=== PATIENT | male | born 1950 | race Caucasian/White ===

== ENCOUNTER → 2018-01-17 | Outpatient (CLI) | payer OTHER ==
[~2018-01-17] MED LIST: ADVAIR IH; ASPIR 8181 MG PO; BREO INH; COMBIVENT RESPIM4 GM IH; COREG CR80 MG PO; CRESTOR20 MG PO; FENOFIBRATE145 MG PO; FLOMAX0.4 MG PO; GLIPIZIDE10 MG PO; INCRUSE ELLIPTA INH; JANUMET XR 1001 EACH PO; JANUVIA100 MG PO; LISINOPRIL10 MG PO; METFORMIN HCL1000 MG PO; NORCO 7.5-3251 EACH PO; PANTOPRAZOLE SO40 MG PO; PLAVIX75 MG PO; SPIRIVA18 MCG INH; SYMBICORT 16010.2 GM INH; UMECLIDINIUM INH
--- NOTE | 2018-01-17 18:44 | Diagnostic Imaging Report ---
PROCEDURE: C-SPINE AP AND LAT WITH FLEX AND EXT COMPARISON: Patients [facility], DX, SPINE CERVICAL AP\T\LAT FLEX\T\EXT, 08/18/2017, 6:52. INDICATIONS: POST C-SPIN FUSION 6 MONTH CHECK UP FINDINGS: C1 through C7 are visualized on the lateral view. Mild reversal of the cervical lordosis may be related muscle spasm or positioning. Re-demonstration of status post anterior fusion of the C4-C6 with metallic plate and transfixing screws which are intact and in adequate alignment. There has been no significant interval bony fusion. Flexion and extension views demonstrate no change in alignment. The prevertebral soft tissues are not swollen. CONCLUSION: Status post anterior fusion of C4-C6 with no significant interval bony fusion. Intact hardware with adequate alignment. No change in alignment in flexion and extension views. Nader Maurer M.D. Dictated by: Nader Maurer M.D. on 01/17/2018 at 18:44 Electronically approved by: Nader Maurer M.D. on 01/17/2018 at 18:44
== END ==
LOC: RAD 11:35
PROVIDERS: ATTEND Neurological Surgery
DX: M50.20 Other cervical disc displacement, unspecified cervical region (principal); Z98.1 Arthrodesis status
CPT/HCPCS: 72050

== ENCOUNTER 2020-03-11 12:57 | Observation (INO) | payer MEDICARE, OTHER ==
[2020-03-07 14:23] LABS: BASOPHILS % 0.6 % (0.0-1.0); EOSINOPHILS # (AUTO) 0.2 (0.0-0.4); EOSINOPHILS % 3.1 % (0.0-6.0); HEMATOCRIT 39.5 % (38.2-49.6); HEMOGLOBIN 12.4 g/dL (14.0-18.0); LYMPHOCYTES % 27.9 % (18.0-39.1); MEAN CORPUSCULAR HEMOGLOBIN 27.4 pg (28-32); MEAN CORPUSCULAR HGB CONC 31.4 g/dL (31-35); MEAN CORPUSCULAR VOLUME 87.2 fL (81-99); MONOCYTES # (AUTO) 0.5 (0.2-0.8); MONOCYTES % 6.9 % (4.4-11.3); NEUTROPHILS # (AUTO) 4.3 (2.1-6.9); NEUTROPHILS % 60.7 % (38.7-80.0); PLATELET COUNT 136 x10e3/uL (140-360); RED BLOOD COUNT 4.53 x10e6/uL (4.3-5.7); RED CELL DISTRIBUTION WIDTH 14.6 % (11.7-14.4)
[2020-03-07 14:43] LABS: ALANINE AMINOTRANSFERASE 13 IU/L (0-55); ALBUMIN 3.8 g/dL (3.5-5.0); ALBUMIN/GLOBULIN RATIO 1.2 (0.8-2.0); ALKALINE PHOSPHATASE 53 IU/L (40-150); ANION GAP 13.6 mmol/L (8-16); BLOOD UREA NITROGEN 9 mg/dL (7-26); BUN/CREATININE RATIO 11 (6-25); CALCIUM 9.2 mg/dL (8.4-10.2); CARBON DIOXIDE 31 mmol/L (22-29); CHLORIDE 103 mmol/L (98-107); CREATININE, SERUM 0.83 mg/dL (0.72-1.25); EST GLOMERULAR FILTRATION RATE > 60 ML/MIN (60-); GLUCOSE 145 mg/dL (74-118); POTASSIUM 4.6 mmol/L (3.5-5.1); SODIUM 143 mmol/L (136-145)
[2020-03-11] VITALS (12 sets, daily range): BP systolic 154–192; BP diastolic 66–88
[~2020-03-11] VITALS: Ht 182.9 cm; Wt 91.2 kg
[~2020-03-11 12:57] MED LIST changes: +AMOXICILLIN250 MG PO; +CARVEDILOL12.5 MG PO; +CILOSTAZOL100 MG PO
--- OUTSIDE RECORDS SUMMARY | 2020-03-11 13:02 | XMS REPORT | Summary of Care ---
Author Author [facility] Organization [facility] Address Unknown Phone Unavailable Encounter SUZIE Amado(CANDIE) [id number] Date(s): 10/10/18 - 10/11/18 [facility] [address] [employer] provided by [facility] [place] [address]- Encounter Diagnosis Atherosclerotic heart disease of [place] coronary artery without angina pectoris (Final) - 10/17/18 Chronic systolic (congestive) heart failure (Final) - Malignant neoplasm of colon, unspecified (Final) - Hypertensive heart disease with heart failure (Final) - Type 2 diabetes mellitus without complications (Final) - Hyperlipidemia, unspecified (Final) - Presence of aortocoronary bypass graft (Final) - Discharge Disposition: Home or Self Care Attending Physician: Nicho Saldivar MD Admitting Physician: Nicho Saldivar MD Referring Physician: Nicho Saldivar MD Vital Signs 1 2 3 Most recent to oldest [Reference Range]: 182.88 cm (10/10/18 10:16 AM) Height 97.2 DegF (10/11/18 12:00 PM) 99 DegF (10/11/18 12:00 PM) 97 DegF (10/11/18 8:00 AM) Temperature Oral [96.4-99.1 DegF] 161/67 mmHg *HI* (10/11/18 2:00 PM) 147/65 mmHg *HI* (10/11/18 1:00 PM) 133/63 mmHg (10/11/18 12:00 PM) Blood Pressure [90-140/60-90 mmHg] 35 BRMIN *HI* (10/11/18 2:00 PM) 20 BRMIN (10/11/18 1:00 PM) 27 BRMIN *HI* (10/11/18 12:00 PM) Respiratory Rate [14-20 BRMIN] 94.545 kg (10/10/18 10:16 AM) Weight 28.27 m2 (10/10/18 10:16 AM) Body Mass Index Problem List Condition Effective Dates Status Health Status Informan t COPD (chronic Active obstructive pulmonary disease)(Confirmed) DM (diabetes Active mellitus)(Confirmed) SOB (shortness of Active breath) on exertion(Confirmed) GERD Active (gastroesophageal reflux disease)(Confirmed) Hypercholesteremia(C Active onfirmed) Colon Active cancer(Confirmed) Poor circulation of Active extremity(Confirmed) PAD (peripheral Active artery disease)(Confirmed) Lumbar Active stenosis(Confirmed) Allergies, Adverse Reactions, Alerts No Known Medication Allergies Medications aspirin 81 mg, 1 tab, Route: PO, Drug form: ECTAB, Daily, Dosing Weight 94.545, kg, Star t date: 10/11/18 9:00:00 [employer], Duration: 30 day, Stop date: 11/09/18 9:00:00 [employer] Notes: Do not crush or chew.(Same As: Ecotrin) Start Date: 10/11/18 Stop Date: 10/11/18 Status: Discontinued aspirin 81 mg tablet, chewable 81 mg, Route: PO, Drug form: CHEWTAB, Daily, Dosing Weight 94.545, kg, Start lovely e: 10/11/18 9:00:00 [employer], Duration: 30 day, Stop date: 11/09/18 9:00:00 [employer] Start Date: 10/11/18 Stop Date: 10/10/18 Status: Canceled aspirin 81 mg tablet, enteric coated 81 mg = 1 tab, PO, Daily, # 90 tab, 0 Refill(s) Start Date: 10/11/18 Stop Date: 01/09/19 Status: Ordered Brilinta (ticagrelor) 90 mg, 1 tab, Route: PO, Drug form: TAB, Q12H, Dosing Weight 94.545, kg, Start d ate: 10/11/18 6:00:00 [employer], Duration: 30 day, Stop date: 11/09/18 18:00:00 [employer] Notes: (Same as: Brilinta) Start Date: 10/11/18 Stop Date: 10/11/18 Status: Discontinued calcium carbonate 500 mg (200 mg elemental calcium) oral tablet 1,000 mg, 2 tab, Route: PO, Drug form: CHEWTAB, PRN, Dosing Weight 94.545, kg, P RN Abnormal Lab Result, FOR ICU USE ONLY, Start date: 10/10/18 20:04:00 [employer], Dur ation: 30 day, Stop date: 11/09/18 20:03:00 [employer] Notes: (Same As: Emily)Calcium Carbonate 500 mg = 200 mg elemental calcium Dose = mg calcium carbonate ( mg elemental calcium) Start Date: 10/10/18 Stop Date: 10/11/18 Status: Discontinued calcium carbonate 500 mg (200 mg elemental calcium) oral tablet 500 mg, 1 tab, Route: PO, Drug form: CHEWTAB, PRN, Dosing Weight 94.545, kg, PRN Abnormal Lab Result, FOR ICU USE ONLY, Start date: 10/10/18 20:04:00 [employer], Durat ion: 30 day, Stop date: 11/09/18 20:03:00 [employer] Notes: (Same As: Emily)Calcium Carbonate 500 mg = 200 mg elemental calcium Dose = mg calcium carbonate ( mg elemental calcium) Start Date: 10/10/18 Stop Date: 10/11/18 Status: Discontinued calcium gluconate + Sodium Chloride 0.9% IV 50 mL 1 gm, 10 mL, Route: IVPB, PRN, Dosing Weight 94.545, kg, PRN Abnormal Lab Result , Start date: 10/10/18 20:04:00 [employer], Duration: 30 day, Stop date: 11/09/18 20:03 :00 [employer], FOR ICU USE ONLY Notes: WASTE: F/P - Sink; E - Municipal Trash Bin Start Date: 10/10/18 Stop Date: 10/11/18 Status: Discontinued carvedilol 25 mg oral tablet 25 mg = 1 tab, PO, BID, # 180 tab, 0 Refill(s) Start Date: 10/11/18 Stop Date: 01/09/19 Status: Ordered Coreg 25 mg, 1 tab, Route: PO, Drug form: TAB, BID, Dosing Weight 94.545, kg, Start da te: 10/11/18 0:01:00 [employer], Duration: 30 day, Stop date: 11/09/18 17:00:00 [employer] Notes: Give with food. (Same As: Coreg) Start Date: 10/11/18 Stop Date: 10/11/18 Status: Discontinued Coreg 12.5 mg, 1 tab, Route: PO, Drug form: TAB, BID, Dosing Weight 94.545, kg, Start date: 10/11/18 9:00:00 [employer], Duration: 30 day, Stop date: 11/09/18 21:00:00 [employer] Notes: Give with food. (Same As: Coreg) Start Date: 10/11/18 Stop Date: 10/10/18 Status: Canceled Crestor 20 mg, 2 tab, Route: PO, Drug form: TAB, Bedtime, Dosing Weight 94.545, kg, Star t date: 10/10/18 21:00:00 [employer], Duration: 30 day, Stop date: 11/08/18 21:00:00 CS T Notes: (Same As: Crestor) Start Date: 10/10/18 Stop Date: 10/11/18 Status: Discontinued Crestor 20 mg oral tablet 20 mg = 1 tab, PO, Bedtime, # 90 tab, 0 Refill(s) Start Date: 10/11/18 Stop Date: 01/09/19 Status: Ordered Dextrose 50% Syringe 25 gm, 50 mL, Route: IVP, Drug Form: INJ, Dosing Weight 94.545, kg, PRN, PRN Blo od Glucose Results, Start date: 10/10/18 20:05:00 [employer], Duration: 30 day, Stop da te: 11/09/18 20:04:00 [employer] Start Date: 10/10/18 Stop Date: 10/11/18 Status: Discontinued Dextrose 50% Syringe 12.5 gm, 25 mL, Route: IVP, Drug Form: INJ, Dosing Weight 94.545, kg, PRN, PRN B lood Glucose Results, Start date: 10/10/18 20:05:00 [employer], Duration: 30 day, Stop date: 11/09/18 20:04:00 [employer] Start Date: 10/10/18 Stop Date: 10/11/18 Status: Discontinued Flomax 0.4 mg, 1 cap, Route: PO, Drug form: CAP, Daily, Dosing Weight 94.545, kg, Start date: 10/11/18 9:00:00 [employer], Duration: 30 day, Stop date: 11/09/18 9:00:00 [employer] Notes: (Same As: Flomax) "Do Not Crush" Start Date: 10/11/18 Stop Date: 10/11/18 Status: Discontinued Flomax 0.4 mg oral capsule 0.4 mg = 1 cap, PO, Daily, # 90 cap, 0 Refill(s) Start Date: 10/11/18 Stop Date: 01/09/19 Status: Ordered glucagon 1 mg, Route: IM, Drug form: PDR/INJ, PRN, Dosing Weight 94.545, kg, PRN Blood Gl ucose Results, Start date: 10/10/18 20:05:00 [employer], Duration: 30 day, Stop date: 0 11/09/18 20:04:00 [employer] Start Date: 10/10/18 Stop Date: 10/11/18 Status: Discontinued Glucotrol 10 mg oral tablet 10 mg = 1 tab, PO, Daily, # 90 tab, 0 Refill(s) Start Date: 10/11/18 Stop Date: 01/09/19 Status: Ordered hydrALAZINE 10 mg, 0.5 mL, Route: IV, Drug form: INJ, ONCE, Dosing Weight 94.545, kg, Start date: 10/10/18 18:56:00 [employer], Stop date: 10/10/18 18:56:00 [employer] Notes: (Same as: Apresoline)Push over 5 minutes Start Date: 10/10/18 Stop Date: 10/10/18 Status: Discontinued Imdur 30 mg, 1 tab, Route: PO, Drug form: ERTAB, QAM, Dosing Weight 94.545, kg, Start date: 10/10/18 20:46:00 [employer], Duration: 30 day, Stop date: 11/09/18 9:00:00 [employer] Notes: (Same as:Imdur)"Do Not Crush" Take on empty stomach/ full glass of water . Do not crush Start Date: 10/10/18 Stop Date: 10/11/18 Status: Discontinued Imdur 60 mg, Route: PO, Drug form: ERTAB, QAM, Dosing Weight 94.545, kg, Start date: 12/12/17 9:00:00 [employer], Duration: 30 day, Stop date: 11/09/18 9:00:00 [employer] Start Date: 10/11/18 Stop Date: 10/11/18 Status: Canceled Imdur 30 mg, 1 tab, Route: PO, Drug form: ERTAB, ONCE, Dosing Weight 94.545, kg, Start date: 10/11/18 3:26:00 [employer], Stop date: 10/11/18 3:26:00 [employer] Notes: (Same as:Imdur)"Do Not Crush" Take on empty stomach/ full glass of water . Do not crush Start Date: 10/11/18 Stop Date: 10/11/18 Status: Discontinued Imdur 30 mg, 1 tab, Route: PO, Drug form: ERTAB, QAM, Dosing Weight 94.545, kg, Start date: 10/11/18 9:00:00 [employer], Duration: 30 day, Stop date: 11/09/18 9:00:00 [employer] Notes: (Same as:Imdur)"Do Not Crush" Take on empty stomach/ full glass of water . Do not crush Start Date: 10/11/18 Stop Date: 10/11/18 Status: Discontinued insulin lispro 5 unit, 0.05 mL, Route: SUB-Q, Drug form: SOLN, TID-Before Meals, Dosing Weight 94.545, kg, PRN Blood Glucose Results, Start date: 10/10/18 20:05:00 [employer], Durati on: 30 day, Stop date: 11/09/18 20:04:00 [employer] Notes: (Same as: Humalog ) Roll in palms of hands gently; Do not shake `vigorou sly. "Single Patient Use Only " WASTE: F/P - Black; E - Municipal Trash Bin St able for 28 days at room temperature.Expires in days from Da te Start Date: 10/10/18 Stop Date: 10/11/18 Status: Discontinued insulin lispro 2 unit, 0.02 mL, Route: SUB-Q, Drug form: SOLN, TID-Before Meals, Dosing Weight 94.545, kg, PRN Blood Glucose Results, Start date: 10/10/18 20:05:00 [employer], Durati on: 30 day, Stop date: 11/09/18 20:04:00 [employer] Notes: (Same as: Humalog ) Roll in palms of hands gently; Do not shake `vigorou sly. "Single Patient Use Only " WASTE: F/P - Black; E - Municipal Trash Bin St able for 28 days at room temperature.Expires in days from Da te Start Date: 10/10/18 Stop Date: 10/11/18 Status: Discontinued insulin lispro 1 unit, 0.01 mL, Route: SUB-Q, Drug form: SOLN, TID-Before Meals, Dosing Weight 94.545, kg, PRN Blood Glucose Results, Start date: 10/10/18 20:05:00 [employer], Durati on: 30 , Stop date: 11/09/18 20:04:00 [employer] Notes: (Same as: Humalog ) Roll in palms of hands gently; Do not shake `vigorou sly. "Single Patient Use Only " WASTE: F/P - Black; E - Municipal Trash [address] St able for 28 days at room temperature.Expires in days from Da te Start Date: 10/10/18 Stop Date: 10/11/18 Status: Discontinued insulin lispro 3 unit, 0.03 mL, Route: SUB-Q, Drug form: SOLN, TID-Before Meals, Dosing Weight 94.545, kg, PRN Blood Glucose Results, Start date: 10/10/18 20:05:00 [employer], Durati on: 30 day, Stop date: 11/09/18 20:04:00 [employer] Notes: (Same as: Humalog ) Roll in palms of hands gently; Do not shake `vigorou sly. "Single Patient Use Only " WASTE: F/P - Black; E - Municipal Trash Bin St able for 28 days at room temperature.Expires in days from Da te Start Date: 10/10/18 Stop Date: 10/11/18 Status: Discontinued insulin lispro 4 unit, 0.04 mL, Route: SUB-Q, Drug form: SOLN, TID-Before Meals, Dosing Weight 94.545, kg, PRN Blood Glucose Results, Start date: 10/10/18 20:05:00 [employer], Durati on: 30 day, Stop date: 11/09/18 20:04:00 [employer] Notes: (Same as: Humalog ) Roll in palms of hands gently; Do not shake `vigorou sly. "Single Patient Use Only " WASTE: F/P - Black; E - Municipal Trash Bin St able for 28 days at room temperature.Expires in days from Da te Start Date: 10/10/18 Stop Date: 10/11/18 Status: Discontinued isosorbide mononitrate 30 mg oral tablet, extended release 30 mg, PO, QAM, # 90 tab, 0 Refill(s) Start Date: 10/11/18 Stop Date: 01/09/19 Status: Ordered Januvia 100 mg oral tablet 100 mg = 1 tab, PO, Daily, # 90 tab, 0 Refill(s) Start Date: 10/11/18 Stop Date: 01/09/19 Status: Ordered labetalol 10 mg, Route: IV, ONCE, Dosing Weight 94.545, kg, Start date: 10/10/18 18:45:00 [employer], Stop date: 10/10/18 18:45:00 [employer] Start Date: 10/10/18 Stop Date: 10/10/18 Status: Deleted lisinopril 40 mg, Route: PO, Daily, Dosing Weight 94.545, kg, Start date: 10/10/18 20:43:00 [employer], Duration: 30 day, Stop date: 11/09/18 9:00:00 [employer] Start Date: 10/10/18 Stop Date: 10/10/18 Status: Discontinued lisinopril 10 mg, Route: PO, Drug form: TAB, Daily, Dosing Weight 94.545, kg, Start date: 1 12/12/17 9:00:00 [employer], Duration: 30 day, Stop date: 11/09/18 9:00:00 [employer] Start Date: 10/11/18 Stop Date: 10/10/18 Status: Canceled lisinopril 40 mg, 2 tab, Route: PO, Drug form: TAB, Daily, Dosing Weight 94.545, kg, Start date: 10/10/18 23:01:00 [employer], Duration: 30 day, Stop date: 11/09/18 9:00:00 [employer] Notes: (Same as: Prinivil Zestril) Start Date: 10/10/18 Stop Date: 10/11/18 Status: Discontinued lisinopril 10 mg oral tablet 10 mg = 1 tab, PO, Daily, # 30 tab, 0 Refill(s) Start Date: 10/10/18 Stop Date: 10/11/18 Status: Discontinued lisinopril 20 mg oral tablet 40 mg = 2 tab, PO, Daily, # 180 tab, 0 Refill(s) Start Date: 10/11/18 Stop Date: 01/09/19 Status: Ordered magnesium oxide 800 mg, 2 tab, Route: PO, Drug form: TAB, PRN, Dosing Weight 94.545, kg, PRN Abn ormal Lab Result, FOR ICU USE ONLY, Start date: 10/10/18 20:04:00 [employer], Duration: 30 day, Stop date: 11/09/18 20:03:00 [employer] Notes: (Same as: Mag-Ox 400)Magnesium oxide [id number] elemental magnesiumDose= ____mg magnesium oxide (___mg elemental magnesium) Start Date: 10/10/18 Stop Date: 10/11/18 Status: Discontinued magnesium sulfate 2 gm, 50 mL, Route: IVPB, Drug form: INJ, PRN, Dosing Weight 94.545, kg, PRN Abn ormal Lab Result, Start date: 10/10/18 20:04:00 [employer], Duration: 30 day, Stop date : 11/09/18 20:03:00 [employer], FOR ICU USE ONLY Notes: WASTE: F/P - Sink; E - Municipal Trash Bin Start Date: 10/10/18 Stop Date: 10/11/18 Status: Discontinued magnesium sulfate 2 gm, 50 mL, Route: IVPB, Drug form: INJ, ONCE, Dosing Weight 94.545, kg, Total dose = 2 gm, Start date: 10/10/18 12:02:00 [employer], Stop date: 10/10/18 12:02:00 [employer] Notes: WASTE: F/P - Sink; E - Municipal Trash Bin Start Date: 10/10/18 Stop Date: 10/10/18 Status: Completed metFORMIN 1000 mg oral tablet 1,000 mg, PO, BID, # 180 tab, 0 Refill(s) Start Date: 10/11/18 Stop Date: 01/09/19 Status: Ordered nitroglycerin SL Tab 0.3 mg, Route: SL, Q5Min, Dosing Weight 94.545, kg, PRN Chest Pain, Start date: 10/10/18 19:36:00 [employer], Duration: 30 day, Stop date: 11/09/18 19:35:00 [employer] Start Date: 10/10/18 Stop Date: 10/10/18 Status: Discontinued nitroglycerin SL Tab 0.4 mg, 1 tab, Route: SL, Drug form: TAB, Q5Min, Dosing Weight 94.545, kg, PRN C hest Pain, Start date: 10/10/18 18:35:00 [employer], Duration: 3 doses or times, Stop d ate: Limited # of times Notes: (Same as:Nitroquick, Nitrostat)"Do Not Crush" Sublingual tablet Start Date: 10/10/18 Stop Date: 10/11/18 Status: Discontinued NS 1,000 mL 1,000 mL, Rate: 75 ml/hr, Infuse over: 13.3 hr, Route: IV, Dosing Weight 94.545 kg, Total Volume: 1,000, Start date: 10/10/18 10:16:00 [employer], Duration: 30 day, St op date: 11/09/18 10:15:00 [employer], 2.2, m2 Start Date: 10/10/18 Stop Date: 10/11/18 Status: Discontinued nystatin topical 100,000 units/g powder 1 appl, Route: TOP, PRN, Drug form: PWDR, PRN For Fungal Prophylaxis, Start date : 10/10/18 20:02:00 [employer], Duration: 30 day, Stop date: 11/09/18 20:01:00 [employer] Notes: (Same as:Mycostatin, Nilstat) For external use only. Start Date: 10/10/18 Stop Date: 10/11/18 Status: Discontinued pantoprazole 40 mg, Route: IVP, Drug form: INJ, ONCE, Dosing Weight 94.545, kg, Start date: 1 12/11/17 20:00:00 [employer], Stop date: 10/10/18 20:00:00 [employer] Notes: For IV push reconstitute with 10 ml 0.9% sodium chloride and push over 2 minutes. (Same as: Protonix) Start Date: 10/10/18 Stop Date: 10/10/18 Status: Discontinued pantoprazole 40 mg, 1 tab, Route: PO, Drug form: ECTAB, QAM, Dosing Weight 94.545, kg, Start date: 10/11/18 9:00:00 [employer], Duration: 30 day, Stop date: 11/09/18 9:00:00 [employer] Notes: Tablet should not be chewed or crushed.(Same as: Protonix) Start Date: 10/11/18 Stop Date: 10/11/18 Status: Discontinued pantoprazole 40 mg, Route: IV, Drug form: INJ, ONCE, Dosing Weight 94.545, kg, Start date: 20:48:00 [employer], Stop date: 10/10/18 20:48:00 [employer] Notes: For IV push reconstitute with 10 ml 0.9% sodium chloride and push over 2 minutes. (Same as: Protonix) Start Date: 10/10/18 Stop Date: 10/10/18 Status: Completed pneumococcal 13-valent vaccine 0.5 mL, Route: IM, Drug Form: INJ, ONCALL, Start date: 10/10/18 12:29:05 [employer], St op date: 11/09/18 12:24:05 [employer] Notes: Shake well prior to use (Same as: Prevnar 13) Start Date: 10/10/18 Stop Date: 10/11/18 Status: Canceled potassium chloride 10 mEq, 50 mL, Route: IVPB, Drug form: INJ, PRN, Dosing Weight 94.545, kg, PRN A bnormal Lab Result, Via peripheral line, Start date: 10/10/18 20:04:00 [employer], Dura tion: 30 day, Stop date: 11/09/18 20:03:00 [employer], FOR ICU USE ONLY Notes: (Same as: KCL) Infuse over 2 hours. Start Date: 10/10/18 Stop Date: 10/11/18 Status: Discontinued potassium chloride 20 mEq, 100 mL, Route: IVPB, Drug form: INJ, PRN, Dosing Weight 94.545, kg, PRN Abnormal Lab Result, Via central line, Start date: 10/10/18 20:04:00 [employer], Durati on: 30 day, Stop date: 11/09/18 20:03:00 [employer], FOR ICU USE ONLY Notes: (Same as: KCL) Infuse no faster than 10 mEq/hr if given peripherally. Start Date: 10/10/18 Stop Date: 10/11/18 Status: Discontinued potassium chloride 20 mEq, 15 mL, Route: NJ, Drug form: LIQ, PRN, Dosing Weight 94.545, kg, PRN Abn ormal Lab Result, Start date: 10/10/18 20:04:00 [employer], Duration: 30 day, Stop date : 11/09/18 20:03:00 [employer], FOR ICU USE ONLY Notes: (Same as: Potassium Chloride) Start Date: 10/10/18 Stop Date: 10/11/18 Status: Discontinued potassium chloride 20 mEq, 1 tab, Route: PO, Drug form: ERTAB, PRN, Dosing Weight 94.545, kg, PRN A bnormal Lab Result, Start date: 10/10/18 20:04:00 [employer], Duration: 30 day, Stop da te: 11/09/18 20:03:00 [employer], FOR ICU USE ONLY Notes: (Same as: K-Dur 20)"Do Not Crush" Give with food and full glass of water For patients unable to swallow tablet, dissolve in one half glass of water. Allo w about 2 minutes for the tablets to disintegrate. Stir before giving to prepare slurry and administer.Please exclude Patients with feeding tube less than 14 Czech (Dobhoff, J-tube etc) and pediatric and patients. Start Date: 10/10/18 Stop Date: 10/11/18 Status: Discontinued potassium phosphate + Sodium Chloride 0.9% IV 250 mL 30 mmol, 10 mL, Route: IVPB, PRN, Dosing Weight 94.545, kg, PRN Abnormal Lab Res ult, Start date: 10/10/18 20:04:00 [employer], Duration: 30 day, Stop date: 11/09/18 20 :03:00 [employer], FOR ICU USE ONLY Notes: (Same as: K Phosphate.)Do not infuse phosphorous concurrently in the same line as TPN or IVF that contains calcium. For double lumen central lines, phosp horous may be infused in a separate lumen from TPN. 1 mMol phoshate has 1.47 mE q potassium Infuse over 4 hours Start Date: 10/10/18 Stop Date: 10/11/18 Status: Discontinued potassium phosphate + Sodium Chloride 0.9% IV 250 mL 15 mmol, 5 mL, Route: IVPB, PRN, Dosing Weight 94.545, kg, PRN Abnormal Lab Resu lt, Start date: 10/10/18 20:04:00 [employer], Duration: 30 day, Stop date: 11/09/18 20: 03:00 [employer], FOR ICU USE ONLY Notes: (Same as: K Phosphate.)Do not infuse phosphorous concurrently in the same line as TPN or IVF that contains calcium. For double lumen central lines, phosp horous may be infused in a separate lumen from TPN. 1 mMol phoshate has 1.47 mE q potassium Infuse over 4 hours Start Date: 10/10/18 Stop Date: 10/11/18 Status: Discontinued potassium phosphate + Sodium Chloride 0.9% IV 250 mL 45 mmol, 15 mL, Route: IVPB, PRN, Dosing Weight 94.545, kg, PRN Abnormal Lab Res ult, Start date: 10/10/18 20:04:00 [employer], Duration: 30 day, Stop date: 11/09/18 20 :03:00 [employer], FOR ICU USE ONLY Notes: (Same as: K Phosphate.)Do not infuse phosphorous concurrently in the same line as TPN or IVF that contains calcium. For double lumen central lines, phosp horous may be infused in a separate lumen from TPN. 1 mMol phoshate has 1.47 mE q potassium Infuse over 4 hours Start Date: 10/10/18 Stop Date: 10/11/18 Status: Discontinued potassium phosphate-sodium phosphate 250 mg-280 mg-160 mg oral powder for recons titution 2 pkt, Route: PO, Drug Form: PDR/REC, Dosing Weight 94.545, kg, PRN, PRN Abnorma l Lab Result, FOR ICU USE ONLY, Start date: 10/10/18 20:04:00 [employer], Duration: 30 day, Stop date: 11/09/18 20:03:00 [employer] Notes: (Same as: Phos-NaK) Each 1.5 gm pkt has 250mg phosphorous. Mix w/2.5oz w ater and stir. Start Date: 10/10/18 Stop Date: 10/11/18 Status: Discontinued Saline Flush 0.9% 10 ml, Route: IVP, Drug Form: INJ, Dosing Weight 94.545, kg, Q12H, Start date: 1 12/11/17 21:00:00 [employer], Duration: 30 day, Stop date: 11/09/18 9:00:00 [employer] Notes: (Same as: BD Posiflush) Start Date: 10/10/18 Stop Date: 10/11/18 Status: Discontinued Saline Flush 0.9% 10 ml, Route: IVP, Drug Form: INJ, Dosing Weight 94.545, kg, PRN, PRN Line Flush , Start date: 10/10/18 20:02:00 [employer], Duration: 30 day, Stop date: 11/09/18 20:01 :00 [employer] Notes: (Same as: BD Posiflush) Start Date: 10/10/18 Stop Date: 10/11/18 Status: Discontinued Sodium Chloride 0.9% (Bolus) IV 250 mL, 250 ml/hr, Infuse Over: 1 hr, Route: IV, 250, Drug form: INJ, ONCE, Dosi ng Weight 94.545 kg, Start date: 10/10/18 18:35:00 [employer], Stop date: 10/10/18 18:3 5:00 [employer] Start Date: 10/10/18 Stop Date: 10/10/18 Status: Completed Sodium Chloride 0.9% IV 750 mL 750 mL, Rate: 75 ml/hr, Infuse over: 10 hr, Route: IV, Dosing Weight 94.545 kg, Total Volume: 750, Start date: 10/10/18 18:35:00 [employer], Duration: 10 hr, Stop date : 10/11/18 4:34:00 [employer], 2.2, m2 Start Date: 10/10/18 Stop Date: 10/11/18 Status: Completed sodium phosphate + Sodium Chloride 0.9% IV 250 mL 45 mmol, 15 mL, Route: IVPB, PRN, Dosing Weight 94.545, kg, PRN Abnormal Lab Res ult, Start date: 10/10/18 20:04:00 [employer], Duration: 30 day, Stop date: 11/09/18 20 :03:00 [employer], FOR ICU USE ONLY Notes: Infuse over 4 hour. Do not infuse phosphorous concurrently in the same li ne as TPN or IVF that contains calcium. For double lumen central lines, phosphor ous may be infused in a separate lumen from TPN. Start Date: 10/10/18 Stop Date: 10/11/18 Status: Discontinued sodium phosphate + Sodium Chloride 0.9% IV 250 mL 15 mmol, 5 mL, Route: IVPB, PRN, Dosing Weight 94.545, kg, PRN Abnormal Lab Resu lt, Start date: 10/10/18 20:04:00 [employer], Duration: 30 day, Stop date: 11/09/18 20: 03:00 [employer], FOR ICU USE ONLY Notes: Infuse over 4 hour. Do not infuse phosphorous concurrently in the same li ne as TPN or IVF that contains calcium. For double lumen central lines, phosphor ous may be infused in a separate lumen from TPN. Start Date: 10/10/18 Stop Date: 10/11/18 Status: Discontinued sodium phosphate + Sodium Chloride 0.9% IV 250 mL 30 mmol, 10 mL, Route: IVPB, PRN, Dosing Weight 94.545, kg, PRN Abnormal Lab Res ult, Start date: 10/10/18 20:04:00 [employer], Duration: 30 day, Stop date: 11/09/18 20 :03:00 [employer], FOR ICU USE ONLY Notes: Infuse over 4 hour. Do not infuse phosphorous concurrently in the same li ne as TPN or IVF that contains calcium. For double lumen central lines, phosphor ous may be infused in a separate lumen from TPN. Start Date: 10/10/18 Stop Date: 10/11/18 Status: Discontinued ticagrelor 90 mg, Route: PO, Drug form: TAB, BID, Dosing Weight 94.545, kg, Start date: 10/17 9:00:00 [employer], Duration: 30 day, Stop date: 11/09/18 17:00:00 [employer] Start Date: 10/11/18 Stop Date: 10/10/18 Status: Canceled ticagrelor 90 mg oral tablet 90 mg = 1 tab, PO, Q12H, # 180 tab, 0 Refill(s) Start Date: 10/11/18 Stop Date: 01/09/19 Status: Ordered Results 1 2 3 Most recent to oldest [Reference Range]: 6.9 K/CMM (10/11/18 5:16 AM) 5.1 K/CMM (10/10/18 8:11 PM) 4.2 K/CMM (10/10/18 10:22 AM) Neutrophils # [1.5-8.1 K/CMM] 1.0 K/CMM (10/11/18 5:16 AM) 2.6 K/CMM (10/10/18 8:11 PM) 1.8 K/CMM (10/10/18 10:22 AM) Lymphocytes # [1.0-5.5 K/CMM] 0.9 K/CMM *HI* (10/11/18 5:16 AM) 0.5 K/CMM (10/10/18 8:11 PM) 0.6 K/CMM (10/10/18 10:22 AM) Monocytes # [0.0-0.8 K/CMM] 0.2 K/CMM (10/11/18 5:16 AM) 0.3 K/CMM (10/10/18 8:11 PM) 0.3 K/CMM (10/10/18 10:22 AM) Eosinophils # [0.0-0.5 K/CMM] 88 mL/min/1.73m2 1 *NA* (10/11/18 5:16 AM) 93 mL/min/1.73m2 2 *NA* (10/10/18 8:11 PM) 90 mL/min/1.73m2 3 *NA* (10/10/18 10:22 AM) eGFR O POS *Unknown* (10/10/18 10:22 AM) ABO/Rh 1.0 (10/10/18 8:11 PM) A/G Ratio [0.7-1.6] Negative (10/10/18 10:22 AM) Antibody Scrn 3.3 g/dL *LOW* (10/10/18 8:11 PM) Albumin Lvl [3.5-5.0 g/dL] 56 unit/L (10/10/18 8:11 PM) Alk Phos [39-136 unit/L] 18 unit/L (10/10/18 8:11 PM) ALT [0-65 unit/L] 12.9 mEq/L (10/11/18 5:16 AM) 11.6 mEq/L (10/10/18 8:11 PM) 10.8 mEq/L (10/10/18 10:22 AM) AGAP [10.0-20.0 mEq/L] 16 unit/L (10/10/18 8:11 PM) AST [0-37 unit/L] 13 (10/10/18 8:11 PM) B/C Ratio [6-25] 0.5 % (10/11/18 5:16 AM) 0.5 % (10/10/18 8:11 PM) 0.6 % (10/10/18 10:22 AM) Basophils [0.0-1.0 %] 12 mg/dL (10/11/18 5:16 AM) 10 mg/dL (10/10/18 8:11 PM) 10 mg/dL (10/10/18 10:22 AM) BUN [7-22 mg/dL] 8.8 mg/dL (10/11/18 5:16 AM) 8.7 mg/dL (10/10/18 8:11 PM) 8.8 mg/dL (10/10/18 10:22 AM) Calcium Lvl [8.5-10.5 mg/dL] 104 mEq/L (10/11/18 5:16 AM) 104 mEq/L (10/10/18 8:11 PM) 105 mEq/L (10/10/18 10:22 AM) Chloride Lvl [95-109 mEq/L] 27 mEq/L (10/11/18 5:16 AM) 30 mEq/L (10/10/18 8:11 PM) 30 mEq/L (10/10/18 10:22 AM) CO2 [24-32 mEq/L] 0.85 mg/dL (10/11/18 5:16 AM) 0.75 mg/dL (10/10/18 8:11 PM) 0.82 mg/dL (10/10/18 10:22 AM) Creatinine Lvl [0.50-1.40 mg/dL] 2.3 % (10/11/18 5:16 AM) 3.9 % (10/10/18 8:11 PM) 4.9 % *HI* (10/10/18 10:22 AM) Eosinophils [0.0-4.0 %] 3.4 g/dL (10/10/18 8:11 PM) Globulin [2.7-4.2 g/dL] 191 mg/dL *HI* (10/11/18 5:16 AM) 101 mg/dL *HI* (10/10/18 8:11 PM) 142 mg/dL *HI* (10/10/18 10:22 AM) Glucose Lvl [70-99 mg/dL] 35.1 % *LOW* (10/11/18 5:16 AM) 37.7 % *LOW* (10/10/18 8:11 PM) 38.6 % *LOW* (10/10/18 10:22 AM) Hct [42.0-54.0 %] 11.6 g/dL *LOW* (10/11/18 5:16 AM) 12.1 g/dL *LOW* (10/10/18 8:11 PM) 12.6 g/dL *LOW* (10/10/18 10:22 AM) Hgb [14.0-18.0 g/dL] 1.27 *HI* (10/10/18 8:11 PM) 1.06 (10/10/18 10:22 AM) INR [0.85-1.17] 3.9 mEq/L (10/11/18 5:16 AM) 3.6 mEq/L (10/10/18 8:11 PM) 3.8 mEq/L (10/10/18 10:22 AM) Potassium Lvl [3.5-5.1 mEq/L] 11.5 % *LOW* (10/11/18 5:16 AM) 30.1 % (10/10/18 8:11 PM) 26.2 % (10/10/18 10:22 AM) Lymphocytes [20.0-40.0 %] 27.6 pg (10/11/18 5:16 AM) 26.9 pg *LOW* (10/10/18 8:11 PM) 27.1 pg (10/10/18 10:22 AM) MCH [27.0-31.0 pg] 33.1 g/dL (10/11/18 5:16 AM) 32.0 g/dL (10/10/18 8:11 PM) 32.6 g/dL (10/10/18 10:22 AM) MCHC [32.0-36.0 g/dL] 83.3 fL (10/11/18:16 AM) 83.8 fL (10/10/18 8:11 PM) 83.3 fL (10/10/18 10:22 AM) MCV [80.0-94.0 fL] 1.7 mg/dL *LOW* (10/11/18:16 AM) 1.9 mg/dL (10/10/18 8:11 PM) 1.5 mg/dL *LOW* (10/10/18:22 AM) Magnesium Lvl [1.8-2.4 mg/dL] 9.4 % (10/11/18:16 AM) 6.2 % (10/10/18 8: PM) 8.3 % (10/10/18 10:22 AM) Monocytes [2.0-12.0 %] 10.5 fL *HI* (10/11/18:16 AM) 10.7 fL *HI* (10/10/18 8:11 PM) 10.4 fL (10/10/18 10:22 AM) MPV [7.4-10.4 fL] 140 mEq/L (10/11/18:16 AM) 142 mEq/L (10/10/18 8:11 PM) 142 mEq/L (10/10/18:22 AM) Sodium Lvl [135-145 mEq/L] 3.9 mg/dL (10/11/18 5:16 AM) 3.9 mg/dL (10/10/18 8:11 PM) 3.5 mg/dL (10/10/18 10:22 AM) Phosphorus [2.5-4.5 mg/dL] 150 K/CMM (10/11/18 5:16 AM) 154 K/CMM (10/10/18 8:11 PM) 169 K/CMM (12/11/18 10:22 AM) Platelet [133-450 K/CMM] 76.3 % *HI* (10/11/18 5:16 AM) 59.3 % (10/10/18 8:11 PM) 60.0 % (10/10/18 10:22 AM) Segs [45.0-75.0 %] 6.7 g/dL (10/10/18 8:11 PM) Total Protein [6.4-8.4 g/dL] 15.6 seconds *HI* (10/10/18 8:11 PM) 13.6 seconds (10/10/18 10:22 AM) PT [12.0-14.7 seconds] >200 seconds 4 *CRIT* (10/10/18: PM) 30.3 seconds (10/10/18 10:22 AM) PTT [22.9-35.8 seconds] 4.21 M/CMM *LOW* (10/11/18 5:16 AM) 4.50 M/CMM *LOW* (10/10/18 8: PM) 4.64 M/CMM *LOW* (10/10/18 10:22 AM) RBC [4.70-6.10 M/CMM] 15.9 % *HI* (10/11/18 5:16 AM) 16.5 % *HI* (10/10/18 8:11 PM) 16.0 % *HI* (10/10/18 10:22 AM) RDW [11.5-14.5 %] 0.4 mg/dL (10/10/18 8: PM) Bili Total [0.2-1.3 mg/dL] 0.16 ng/mL (10/10/18 8:11 PM) Troponin-I [0.00-0.40 ng/mL] 9.0 K/CMM (10/11/18 5:16 AM) 8.6 K/CMM (10/10/18 8:11 PM) 7.0 K/CMM (10/10/18 10:22 AM) WBC [3.7-10.4 K/CMM] 1.15 mMol/L (10/11/18 5:16 AM) 1.12 mMol/L (10/10/18 8:11 PM) Ca Ion WB [1.05-1.25 mMol/L] 1.12 mMol/L (10/11/18 5:16 AM) 1.06 mMol/L (10/10/18 8:11 PM) Ca Norm WB [1.05-1.25 mMol/L] 142 seconds *NA* (10/10/18 10:54 PM) 196 seconds *NA* (10/10/18 5:46 PM) 247 seconds *NA* (10/10/18 4:56 PM) POC Activated Clotting Time 1Result Comment: The eGFR is calculated using the CKD-EPI formula. In most young, healthy individuals the eGFR will be >90 mL/min/1.73m2. The eGFR declines with age. An eGFR of 60-89 may be normal in some populations, particularly the elderly, for whom the CKD-EPI formula has not been extensively validated. Use of the eGFR is not recommended in the following populations: Individuals with unstable creatinine concentrations, including patients and those with serious co-morbid conditions. Patients with extremes in muscle mass or diet. The data above are obtained from the National Kidney Disease Education Program ( NKDEP) which additionally recommends that when the eGFR is used in patients with extremes of body mass index for purposes of drug dosing, the eGFR should be mul tiplied by the estimated BMI. 2Result Comment: The eGFR is calculated using the CKD-EPI formula. In most young, healthy individuals the eGFR will be >90 mL/min/1.73m2. The eGFR declines with age. An eGFR of 60-89 may be normal in some populations, particularly the elderly, for whom the CKD-EPI formula has not been extensively validated. Use of the eGFR is not recommended in the following populations: Individuals with unstable creatinine concentrations, including patients and those with serious co-morbid conditions. Patients with extremes in muscle mass or diet. The data above are obtained from the National Kidney Disease Education Program ( NKDEP) which additionally recommends that when the eGFR is used in patients with extremes of body mass index for purposes of drug dosing, the eGFR should be mul tiplied by the estimated BMI. 3Result Comment: The eGFR is calculated using the CKD-EPI formula. In most young, healthy individuals the eGFR will be >90 mL/min/1.73m2. The eGFR declines with age. An eGFR of 60-89 may be normal in some populations, particularly the elderly, for whom the CKD-EPI formula has not been extensively validated. Use of the eGFR is not recommended in the following populations: Individuals with unstable creatinine concentrations, including patients and those with serious co-morbid conditions. Patients with extremes in muscle mass or diet. The data above are obtained from the National Kidney Disease Education Program ( NKDEP) which additionally recommends that when the eGFR is used in patients with extremes of body mass index for purposes of drug dosing, the eGFR should be mul tiplied by the estimated BMI. 4Result Comment: Critical Result(s) called to Laure Jin at 10/10/2018 21:06 by ELIZA. Read back OK. Immunizations Given and Recorded Vaccine Date Status Refusal Reason influenza virus vaccine, inactivated 08/24/18 G iven Procedures Procedure Date Related Diagnosis Body Site Status Endarterectomy 2007 Completed CABG x 4 - Coronary artery bypass grafts x 4 2001 Completed Cataract surgery Completed Cervical spinal fusion Completed Colonoscopy Completed Lumbar spinal fusion Completed Operation Completed Partial resection of colon Completed Shoulder joint operations Completed Vasectomy Completed Social History Social History Type Response Smoking Status Former smoker; Type: Cigare ttes; Exposure to Tobacco Smoke None; Cigarette Smoking Last 365 Days No; Reg Smoking C essation Counseling No1 entered on: 10/10/18 1Quit smoking 15 years ago Assessment and Plan Extracted from: Title: CCU History and Physical Author: Nicho Saldivar MD Date: 10/10/18 Patient is a 68 year old male with PMH CAD (s/p CABG in 2001, Positive PET CT in April -> LCX ischemia; Left Carotid Endarterectomy; ASA 81mg, Plavix 75mg), HTN (Lisinopril 20mg daily, Coreg 25mg BID), DM (Sitagliptan, Metformin, Glipizide), HLD (Crestor 20mg daily), Colon Cancer (s/p hemicolectomy Jul 2018, evaluation for chemo on-going), BPH (Tamsulosin 0.4mg) who presented to [facility] for scheduled PCI after the positive PET CT in April (LCX ischemia). Patient received DESx2 to the LCX, DESx1 to prox LAD, DESx1 RPDA. Patient's clammer is Dr. Saldivar. Patient was loaded with Ticagrelor 180mg during procedure. They also attempted PCI on [employer]ACH[employer], and there were some worries of perforation but angriography/echo had no evidence of perforation or perfusion. Per procedure recommendations, patient will stop his home Plavix, and be discharged on Ticagrelor 90mg BID and continue his Aspirin 81mg. CV #CAD s/p CABG, PCI #Elective PCI - MEGGAN to LCX, prox LAD, RPDA - Ticagrelor 180mg in procedure, startin g DAPT tomorrow - Has clammer, Dr. Saldivar to llow-up with #HTN #HFrEF (30-35%) - Home coreg 25mg BID, Lisinopril 10mg, Imdur 30mg daily - Holding coreg for HR in 60's - Starting Lisinopril 10mg #Chest pain - Burning sensation after PCI - Mild relief from nitro, none from Pant oprazole - Reciving Imdur 30mg x1 - Monitor Resp - No complaints - On room air Neuro - No complaints GI - History of colon cancer s/p hemicolect duy in July 2018 - Strict I/O Renal - No history renal disease Diet Heart Healthy-- 10/10/18 10:16:00 [employer] Code: Full Aiden Fletcher MD [facility] Internal Medicine PGY1 CCU/CIMU Daily Patient Safety Checklist Yes No Comments (free text) CAD/CHF/PCI Requirements: 1. ASA x 2. RUDOLPH Inhibitor or ARB x 3. Beta Willard x 4. Statin x 5. DAPT post PCI? x 6. Renal Protection Fluid Protocol Post- PCI? x Blood Stream Infection Prevention: 1. Central Line necessity addressed? x CAUTI Prevention: 1. Singh necessity addressed? x DVT Prevention: 1. VTE Advisor Completed on admission an d DVT ppx? Nutrition: 1. Enteral Feeding within 48hr? x Blood Glucose Control: 1. 60mg/dl < BG< 200mg/dl? x Discharge Plannin. PT/OT? 2. Cardiac Rehab? x 3. Case Management/Social Work Consult? x 4. Restraints assessed/reordered? x CCU/CIMU Diagnoses Cardiac Arrest s/p CPR Cardiogenic Shock Acute ST Elevation VA Anterior LAD Lateral LCx Inferior RCA Non ST Elevation VA Anterior LAD Lateral LCx Inferior RCA Unstable Angina Acute Systolic HF x Chronic Systolic HF Acute Diastolic HF Chronic Diastolic HF Acute on Chronic Systolic HF Acute on Chronic Diastolic HF Acute on Chronic Combined Systolic and Diastolic HF Cardiomyopathy Pericarditis Severe Aortic Stenosis Severe Mitral Regurgitation Atrial Fibrillation Paroxysmal Persistant Atrial Flutter Hyperkalemia Hypokalemia Hypernatremia Hyponatremia x Diabetes Type I Type II x Diabetic Keto Acidosis Acute Kidney Injury ATN [place] on CKD ATN CKD Stage _ Septic Shock Pneumonia Acute Respiratory Failure Chronic Respiratory Failure Acidosis Metabolic Respiratory Combined Alkalosis Metabolic Respiratory Combinded UTI Hemorrhagic Shock Acute Blood Loss Anemia Cerebral Infarction Acute Chronic Acute Encephalopathy Toxic Metabolic Hypoxic Hepatic Protein Calorie Malnutrition Mild Moderate Severe Obesity Morbid Addendum by Jeff, ATTENDING ADDENDUM Ankit TRUJILLO on I have seen and examined th e patient. Furthermore, I have reviewed the 10/13/2018 resident's/fellow's note seferino cornejo today, and I agree with the assessment and plan. I have 14:39 GAME AND [employer] personally reviewed the lab oratory results, radiology results, and tracings. Dr. Ankit Aguilar MD #[id number]
--- OUTSIDE RECORDS SUMMARY | 2020-03-11 13:02 | XMS REPORT | Summary of Care ---
Author Author [facility] Organization [facility] Address Unknown Phone Unavailable Encounter SUIZE Amado(CANDIE) [id number] Date(s): 05/08/18 - 05/08/18 [facility] [address] [place] [address]- [phone] Discharge Disposition: Home or Self Care Attending Physician: Yocasta Ndiaye V Referring Physician: Yocasta Ndiaye V Vital Signs 1 2 3 Most recent to oldest [Reference Range]: 182.88 cm (05/02/18 11:25 AM) Height 98.1 DegF (05/02/18 11:25 AM) Temperature Oral [96.4-99.1 DegF] 113/52 mmHg (05/08/18 9:00 AM) 101/48 mmHg (05/08/18 8:45 AM) 85/53 mmHg *LOW* (05/08/18 8:30 AM) Blood Pressure [90-140/60-90 mmHg] 14 BRMIN (05/08/18 9:00 AM) 17 BRMIN (05/08/18 8:45 AM) 15 BRMIN (05/08/18 8:30 AM) Respiratory Rate [14-20 BRMIN] 72 bpm (05/02/18 11:25 AM) Peripheral Pulse Rate [60-100 bpm] 99.205 kg (05/02/18 11:25 AM) Weight 29.66 m2 (05/02/18 11:25 AM) Body Mass Index Problem List Condition Effective Dates Status Health Status Informan t COPD (chronic Active obstructive pulmonary disease)(Confirmed) DM (diabetes Active mellitus)(Confirmed) SOB (shortness of Active breath) on exertion(Confirmed) GERD Active (gastroesophageal reflux disease)(Confirmed) Hypercholesteremia(C Active onfirmed) Allergies, Adverse Reactions, Alerts Substance Reaction Severity Status NKDA Active Medications aspirin 81 mg tablet, enteric coated 81 mg = 1 tab, PO, Daily, # 90 tab, 3 Refill(s) Start Date: 05/02/18 Status: Ordered Breo Ellipta 200 mcg-25 mcg/inh inhalation powder 1 puff, INHALATION, Daily, 0 Refill(s) Start Date: 05/02/18 Status: Ordered Combivent Respimat CFC free 100 mcg-20 mcg/inh inhalation aerosol 1 puff, INHALATION, QID, 0 Refill(s) Start Date: 05/02/18 Status: Ordered Coreg 25 mg oral tablet 50 mg = 2 tab, PO, Daily, 0 Refill(s) Start Date: 05/02/18 Status: Ordered Crestor 20 mg oral tablet 20 mg = 1 tab, PO, Bedtime, # 30 tab, 0 Refill(s) Start Date: 05/02/18 Stop Date: 06/01/18 Status: Ordered Flomax 0.4 mg oral capsule 0.4 mg = 1 cap, PO, Daily, 0 Refill(s) Start Date: 05/02/18 Status: Ordered Glucotrol 10 mg oral tablet 20 mg = 2 tab, PO, Daily, 0 Refill(s) Start Date: 05/02/18 Status: Ordered Incruse Ellipta 62.5 mcg inhalation powder INHALATION, Q24H, 0 Refill(s) Start Date: 05/02/18 Status: Ordered Januvia 100 mg oral tablet 100 mg = 1 tab, PO, Daily, 0 Refill(s) Start Date: 05/02/18 Status: Ordered lisinopril 10 mg oral tablet 20 mg = 2 tab, PO, Daily, 0 Refill(s) Start Date: 05/02/18 Status: Ordered metFORMIN 1000 mg oral tablet, extended release 1,000 mg = 1 tab, PO, Daily, # 30 tab, 0 Refill(s) Start Date: 05/02/18 Status: Ordered Plavix 75 mg oral tablet 75 mg = 1 tab, PO, Daily, 0 Refill(s) Start Date: 05/02/18 Status: Ordered Sodium Chloride 0.9% IV 1,000 mL 1,000 mL, Rate: 25 ml/hr, Infuse over: 40 hr, Route: IV, Dosing Weight 99.205 kg , Total Volume: 1,000, Start date: 05/08/18 7:10:00 CDT, Duration: 1 day, Stop d ate: 05/09/18 7:09:00 CDT, 2.26, m2 Start Date: 05/08/18 Stop Date: 05/08/18 Status: Discontinued Unknown Home Medication Refill(s) 0 Start Date: 05/02/18 Status: Ordered Results ELECTROLYTES Most recent to 1 oldest [Reference Range]: Sodium Lvl [135-145 142 mEq/L mEq/L] (05/02/18 11:52 AM) Potassium Lvl 4.6 mEq/L [3.5-5.1 mEq/L] (05/02/18 11:52 AM) Chloride Lvl [95-109 103 mEq/L mEq/L] (05/02/18 11:52 AM) CO2 [24-32 mEq/L] 29 mEq/L (05/02/18 11:52 AM) AGAP [10.0-20.0 14.6 mEq/L mEq/L] (05/02/18 11:52 AM) CHEM PANEL Most recent to 1 oldest [Reference Range]: Creatinine Lvl 1.39 mg/dL [0.50-1.40 mg/dL] (05/02/18 11:52 AM) eGFR 39 mL/min/1.73m2 1 *NA* (05/02/18 11:52 AM) BUN [7-22 mg/dL] 20 mg/dL (05/02/18 11:52 AM) Glucose Lvl [70-99 268 mg/dL mg/dL] *HI* (05/02/18 11:52 AM) Calcium Lvl 8.8 mg/dL [8.5-10.5 mg/dL] (05/02/18 11:52 AM) 1Result Comment: The eGFR is calculated using [...] be mul tiplied by the estimated BMI. Immunizations No data available for this section Procedures Procedure Date Related Diagnosis Body Site Status Endarterectomy 2008 Completed CABG x 4 - Coronary artery bypass grafts x 4 2001 Completed Operation Completed Shoulder joint operations Completed Social History Social History Type Response Smoking Status Former smoker; Type: Cigare ttes; Exposure to Tobacco Smoke None; Cigarette Smoking Last 365 Days No; Reg Smoking C essation Counseling No entered on: 05/08/18 Assessment and Plan No data available for this section
--- OUTSIDE RECORDS SUMMARY | 2020-03-11 13:02 | XMS REPORT | Summary of Care ---
Author Author [facility] Organization [facility] Address Unknown Phone Unavailable Encounter SUZIE Amado(CANDIE) [id number] Date(s): 07/11/19 - 07/11/19 [facility] [address] [place] [address]- Discharge Disposition: Home or Self Care Attending Physician: Yocasta Ndiaye V Referring Physician: Yocasta Ndiaye V Vital Signs 1 2 3 Most recent to oldest [Reference Range]: 182.88 cm (07/03/19 7:47 AM) Height 97.9 DegF (07/03/19 8:01 AM) Temperature Oral [96.4-99.1 DegF] 147/80 mmHg *HI* (07/11/19 9:10 AM) 137/65 mmHg (07/11/19 8:57 AM) 105/46 mmHg (07/11/19 8:42 AM) Blood Pressure [90-140/60-90 mmHg] 15 BRMIN (07/11/19 9:10 AM) 14 BRMIN (07/11/19 8:57 AM) 16 BRMIN (07/11/19 8:42 AM) Respiratory Rate [14-20 BRMIN] 68 bpm (07/03/19 8:01 AM) Peripheral Pulse Rate [60-100 bpm] 90.909 kg (07/03/19 7:47 AM) Weight 27.18 m2 (07/03/19 7:47 AM) Body Mass Index Problem List Condition Effective Dates Status Health Status Informan t COPD (chronic Active obstructive pulmonary disease)(Confirmed) DM (diabetes Active mellitus)(Confirmed) SOB (shortness of Active breath) on exertion(Confirmed) GERD Active (gastroesophageal reflux disease)(Confirmed) Hypercholesteremia(C Active onfirmed) Colon Active cancer(Confirmed) PAD (peripheral Active artery disease)(Confirmed) Poor circulation of Active extremity(Confirmed) Lumbar Active stenosis(Confirmed) Allergies, Adverse Reactions, Alerts No Known Medication Allergies Medications Advair Diskus 100 mcg-50 mcg inhalation powder INHALATION, BID, 0 Refill(s) Start Date: 07/03/19 Status: Ordered carvedilol 12.5 mg oral tablet 12.5 mg = 1 tab, PO, BID, 0 Refill(s) Start Date: 07/03/19 Status: Ordered cilostazol 100 mg oral tablet 100 mg = 1 tab, PO, BID, 0 Refill(s) Start Date: 07/03/19 Status: Ordered Januvia 100 mg oral tablet 100 mg = 1 tab, PO, Daily, 0 Refill(s) Start Date: 07/03/19 Status: Ordered lisinopril 10 mg oral tablet 10 mg = 1 tab, PO, BID, 0 Refill(s) Start Date: 07/03/19 Status: Ordered pantoprazole 40 mg oral enteric coated tablet 40 mg = 1 tab, PO, Daily, 0 Refill(s) Start Date: 07/03/19 Status: Ordered Plavix 75 mg oral tablet 75 mg = 1 tab, PO, Daily, 0 Refill(s) Start Date: 07/05/19 Status: Ordered Sodium Chloride 0.9% IV 1000 mL 1,000 mL, Rate: 75 ml/hr, Infuse over: 13.3 hr, Route: IV, Dosing Weight 90.909 kg, Total Volume: 1,000, Start date: 07/11/19 7:03:00 CDT, Duration: 30 day, Sto p date: 08/10/19 7:02:00 CDT, 2.16, m2 Start Date: 07/11/19 Stop Date: 07/11/19 Status: Discontinued Results Most recent to 1 oldest [Reference Range]: eGFR 86 mL/min/1.73m2 1 *NA* (07/03/19 8:31 AM) AGAP [10.0-20.0 11.6 mEq/L mEq/L] (07/03/19 8:31 AM) BUN [7-22 mg/dL] 12 mg/dL (07/03/19 8:31 AM) Calcium Lvl 9.3 mg/dL [8.5-10.5 mg/dL] (07/03/19 8:31 AM) Chloride Lvl [95-109 107 mEq/L mEq/L] (07/03/19 8:31 AM) CO2 [24-32 mEq/L] 30 mEq/L (07/03/19 8:31 AM) Creatinine Lvl 0.89 mg/dL [0.50-1.40 mg/dL] (07/03/19 8:31 AM) Glucose Lvl [70-99 235 mg/dL mg/dL] *HI* (07/03/19 8:31 AM) Hct [42.0-54.0 %] 37.9 % *LOW* (07/03/19 8:31 AM) Hgb [14.0-18.0 g/dL] 12.6 g/dL *LOW* (07/03/19 8:31 AM) Potassium Lvl 4.6 mEq/L [3.5-5.1 mEq/L] (07/03/19 8:31 AM) Sodium Lvl [135-145 144 mEq/L mEq/L] (07/03/19 8:31 AM) 1Result Comment: The eGFR is calculated [...] mul tiplied by the estimated BMI. Immunizations Given and Recorded Vaccine Date Status Refusal Reason influenza virus vaccine, inactivated 08/24/18 G iven Procedures Procedure Date Related Diagnosis Body Site Status Vascular access incision1 10/31/17 Completed Endarterectomy 2007 Completed CABG x 4 - Coronary artery bypass grafts x 4 2001 Completed Cataract surgery Completed Cervical spinal fusion Completed Colonoscopy Completed Lumbar spinal fusion Completed Operation Completed Partial resection of colon Completed Shoulder joint operations Completed Vasectomy Completed 1portocath placement Social History Social History Type Response Alcohol Past Employment/School Status: Retired. Substance Abuse Use: None. Smoking Status Former smoker; Type: Cigare ttes; Previous treatment: None; Ready to change: No; Concerns about tobacco use in house hold: No; Exposure to Tobacco Smoke None; Cigarette Smoking Last 365 Days N o; Reg Smoking Cessation Counseling No1 entered on: 07/11/19 1Quit smoking 15 years ago Assessment and Plan No data available for this section
--- OUTSIDE RECORDS SUMMARY | 2020-03-11 13:02 | XMS REPORT | Summary of Care ---
Author Author [facility] Organization [facility] Address Unknown Phone Unavailable Encounter SUZIE Amado(FIN) [id number] Date(s): 07/05/18 - 07/05/18 [facility] [address] [place] [address]- [phone] Attending Physician: Ish Cortes MD Referring Physician: Ish Cortes MD Vital Signs No data available for this section Problem List Condition Effective Dates Status Health Status Informan t COPD (chronic Active obstructive pulmonary disease)(Confirmed) DM (diabetes Active mellitus)(Confirmed) SOB (shortness of Active breath) on exertion(Confirmed) GERD Active (gastroesophageal reflux disease)(Confirmed) Hypercholesteremia(C Active onfirmed) Colon Active cancer(Confirmed) Poor circulation of Active extremity(Confirmed) PAD (peripheral Active artery disease)(Confirmed) Lumbar Active stenosis(Confirmed) Allergies, Adverse Reactions, Alerts Substance Reaction Severity Status NKDA Active Medications No data available for this section Results No data available for this section Immunizations Given and Recorded Vaccine Date Status [...]
--- OUTSIDE RECORDS SUMMARY | 2020-03-11 13:02 | XMS REPORT | Summary of Care ---
Author Author [facility] Organization [facility] Address Unknown Phone Unavailable Encounter SUZIE Amado(CANDIE) [id number] Date(s): 08/24/19 - 08/24/19 [facility] [address] [place] [address]- Discharge Disposition: Home or Self Care Attending Physician: Mikel Comer MD Referring Physician: Mikel Comer MD Vital Signs No data available for [...] Reactions, Alerts No Known Medication Allergies Medications No data available for this section Results Most recent to 1 oldest [Reference Range]: eGFR 95 mL/min/1.73m2 1 *NA* (08/24/19 7:53 AM) POC Creatinine 0.7 mg/dL [0.5-1.4 mg/dL] (08/24/19 7:53 AM) 1Result Comment: The eGFR is calculated [...] Status Vascular access incision1 10/31/17 Completed Endarterectomy 2008 Completed CABG x 4 - [...]
--- OUTSIDE RECORDS SUMMARY | 2020-03-11 13:02 | XMS REPORT | Summary of Care ---
Author Author [facility] Organization [facility] Address Unknown Phone Unavailable Encounter SUZIE Amado(CANDIE) [id number] Date(s): 09/17/19 - 09/17/19 [facility] [address] [place] [address]- Discharge Disposition: Home or Self Care Attending Physician: Yocasta Ndiaye V Referring Physician: Yocasta Ndiaye V Vital Signs 1 2 3 Most recent to oldest [Reference Range]: 182.88 cm (09/12/19 7:55 AM) Height 97.8 DegF (09/12/19 8:05 AM) Temperature Oral [96.4-99.1 DegF] 99/49 mmHg (09/17/19 10:00 AM) 110/47 mmHg (09/17/19 9:45 AM) 116/55 mmHg (09/17/19 9:30 AM) Blood Pressure [90-140/60-90 mmHg] 16 BRMIN (09/17/19 10:00 AM) 16 BRMIN (09/17/19 9:45 AM) 16 BRMIN (09/17/19 9:30 AM) Respiratory Rate [14-20 BRMIN] 64 bpm (09/12/19 8:05 AM) Peripheral Pulse Rate [60-100 bpm] 93.182 kg (09/12/19 7:55 AM) Weight 27.86 m2 (09/12/19 7:55 AM) Body Mass Index Problem List Condition Effective Dates Status Health Status Informan t COPD (chronic Active obstructive pulmonary disease)(Confirmed) DM (diabetes Active mellitus)(Confirmed) SOB (shortness of Active breath) on exertion(Confirmed) GERD Active (gastroesophageal reflux disease)(Confirmed) Hypercholesteremia(C Active onfirmed) Colon Resolved cancer(Confirmed) PAD (peripheral Active artery disease)(Confirmed) Poor circulation of Active extremity(Confirmed) Lumbar Active stenosis(Confirmed) Allergies, Adverse Reactions, Alerts No Known Medication Allergies Medications ceFAZolin (ANES) Route: IV, Drug form: INJ, ONCE, Stop date: 09/17/19 9:27:00 TRAFFIC COORDINATOR Start Date: 09/17/19 Stop Date: 09/17/19 Status: Completed fentaNYL (ANES) Route: IV, Drug form: INJ, ONCE, Stop date: 09/17/19 9:22:00 TRAFFIC COORDINATOR Start Date: 09/17/19 Stop Date: 09/17/19 Status: Completed Lactated Ringers Injection IV (ANES) 1000 mL Route: IV, Total Volume: 1,000, Start date: 09/17/19 8:41:00 TRAFFIC COORDINATOR, Stop date: 9:41:00 TRAFFIC COORDINATOR Start Date: 09/17/19 Stop Date: 09/17/19 Status: Completed Lactated Ringers Injection IV 1000 mL 1,000 mL, Rate: 75 ml/hr, Infuse over: 13.3 hr, Route: IV, Dosing Weight 93.182 kg, Total Volume: 1,000, Start date: 09/17/19 8:03:00 TRAFFIC COORDINATOR, Duration: 30 day, Sto p date: 10/17/19 8:02:00 TRAFFIC COORDINATOR, 2.19, m2 Start Date: 09/17/19 Stop Date: 09/17/19 Status: Discontinued lidocaine (ANES) Route: IV, Drug form: INJ, ONCE, Stop date: 09/17/19 9:42:00 TRAFFIC COORDINATOR Start Date: 09/17/19 Stop Date: 09/17/19 Status: Completed midazolam (ANES) Route: IV, Drug form: SOLN, ONCE, Stop date: 09/17/19 9:22:00 TRAFFIC COORDINATOR Start Date: 09/17/19 Stop Date: 09/17/19 Status: Completed ondansetron (ANES) Route: IV, Drug form: INJ, ONCE, Stop date: 09/17/19 9:27:00 TRAFFIC COORDINATOR Start Date: 09/17/19 Stop Date: 09/17/19 Status: Completed propofol (ANES) 10 mg Route: IV, Drug form: INJ, Start date: 09/17/19 8:52:00 TRAFFIC COORDINATOR, Stop date: 09/17/19 9:52:00 TRAFFIC COORDINATOR Start Date: 09/17/19 Stop Date: 09/17/19 Status: Completed Tylenol with Codeine #3 oral tablet 1 - 2 tab, PO, Q6H, PRN Pain, X 2 day, # 10 tab, 0 Refill(s) Start Date: 09/17/19 Stop Date: 09/19/19 Status: Completed Results Most recent to 1 oldest [Reference Range]: eGFR 91 mL/min/1.73m2 1 *NA* (09/12/19 8:43 AM) AGAP [10.0-20.0 10.7 mEq/L mEq/L] (09/12/19 8:43 AM) BUN [7-22 mg/dL] 14 mg/dL (09/12/19 8:43 AM) Calcium Lvl 8.9 mg/dL [8.5-10.5 mg/dL] (09/12/19 8:43 AM) Chloride Lvl [95-109 108 mEq/L mEq/L] (09/12/19 8:43 AM) CO2 [24-32 mEq/L] 29 mEq/L (09/12/19 8:43 AM) Creatinine Lvl 0.78 mg/dL [0.50-1.40 mg/dL] (09/12/19 8:43 AM) Glucose Lvl [70-99 128 mg/dL mg/dL] *HI* (09/12/19 8:43 AM) Hct [42.0-54.0 %] 40.9 % *LOW* (09/12/19 8:43 AM) Hgb [14.0-18.0 g/dL] 13.3 g/dL *LOW* (09/12/19 8:43 AM) Hgb A1C [<=5.6 %] 7.0 % *HI* (09/12/19 8:43 AM) Potassium Lvl 4.7 mEq/L [3.5-5.1 mEq/L] (09/12/19 8:43 AM) Sodium Lvl [135-145 143 mEq/L mEq/L] (09/12/19 8:43 AM) 1Result Comment: The eGFR is calculated [...] Social History Social History Type Response Alcohol Never Employment/School Status: Retired. Substance Abuse Use: None. Smoking Status Former smoker; Exposure to Tobacco Smoke None; Cigarette Smoking Last 365 Days No; Reg Smoking Cessation Counseli ng No entered on: 09/12/19 Assessment and Plan No data available for this section
--- OUTSIDE RECORDS SUMMARY | 2020-03-11 13:02 | XMS REPORT | Summary of Care ---
Author Author [facility] Organization [facility] Address Unknown Phone Unavailable Encounter SUZIE Amado(CANDIE) [id number] Date(s): 06/08/19 - 06/08/19 [facility] [address] [place] [address]- Discharge Disposition: Home or Self Care Attending Physician: Sarah Villela DO Referring Physician: Sarah Villela DO Vital Signs Most recent to 1 oldest [Reference Range]: Height 182.88 cm (06/08/19 7:58 AM) Weight 92.273 kg (06/08/19 7:58 AM) Body Mass Index 27.59 m2 (06/08/19 7:58 AM) Problem List Condition Effective Dates Status Health [...] Social History Social History Type Response Alcohol Past, Type Beer. Previous treatment: None. Alcohol use interferes with work or home: No. Drinks more than int ended: No. Others hurt by drinking: No. Ready to change: No. Household al cohol concerns: No.1 Smoking Status Former smoker; Type: Cigare ttes; Previous treatment: None; Ready to change: No; Concerns about tobacco use in house hold: No; Exposure to Tobacco Smoke None; Cigarette Smoking Last 365 Days N o; Reg Smoking Cessation Counseling No2 entered on: 06/08/19 1quit drinking in 2001 2Quit smoking 15 years ago Assessment and Plan No data available for this section
--- OUTSIDE RECORDS SUMMARY | 2020-03-11 13:02 | XMS REPORT | Summary of Care ---
Author Author [facility] Organization [facility] Address Unknown Phone Unavailable Encounter SUZIE Amado(CANDIE) [id number] Date(s): 12/13/19 - 12/13/19 [facility] [address] [place] [address]- Discharge Disposition: Home or Self Care Attending Physician: Ish Cortes MD Referring Physician: Ish Cortes MD Vital Signs 1 2 3 Most recent to oldest [Reference Range]: 182.88 cm (12/06/19 10:29 AM) Height 97.7 DegF (12/06/19 10:30 AM) Temperature Oral [96.4-99.1 DegF] 113/48 mmHg (12/13/19 3:45 PM) 111/44 mmHg (12/13/19 3:15 PM) 104/49 mmHg (12/13/19 2:45 PM) Blood Pressure [90-140/60-90 mmHg] 18 BRMIN (12/13/19 3:45 PM) 15 BRMIN (12/13/19 1:30 PM) 16 BRMIN (12/13/19 1:15 PM) Respiratory Rate [14-20 BRMIN] 56 bpm *LOW* (12/06/19 10:30 AM) Peripheral Pulse Rate [60-100 bpm] 93.21 kg (12/06/19 10:29 AM) Weight 27.87 m2 (12/06/19 10:29 AM) Body Mass Index Problem List Condition [...] Reactions, Alerts No Known Medication Allergies Medications Ancef 2 gm, Route: IVPB, PRE OP, Dosing Weight 93.21, kg, Start date: 12/06/19 11:00:0 0 ORTHOTIC/PROSTHETIC PRACTITIONER, Duration: 1 day, Stop date: 12/07/19 10:59:00 ORTHOTIC/PROSTHETIC PRACTITIONER, ABX Indication: Surgic al Prophylaxis Start Date: 12/06/19 Stop Date: 12/13/19 Status: Discontinued ceFAZolin (ANES) Route: IV, Drug form: INJ, ONCE, Stop date: 12/13/19 11:50:00 ORTHOTIC/PROSTHETIC PRACTITIONER Start Date: 12/13/19 Stop Date: 12/13/19 Status: Completed clopidogrel 75 mg oral tablet 75 mg = 1 tab, PO, Daily, 0 Refill(s) Start Date: 12/06/19 Status: Ordered fentaNYL (ANES) Route: IV, Drug form: INJ, ONCE, Stop date: 12/13/19 11:55:00 ORTHOTIC/PROSTHETIC PRACTITIONER Start Date: 12/13/19 Stop Date: 12/13/19 Status: Completed fentaNYL (ANES) Route: IV, Drug form: INJ, ONCE, Stop date: 12/13/19 12:05:00 ORTHOTIC/PROSTHETIC PRACTITIONER Start Date: 12/13/19 Stop Date: 12/13/19 Status: Completed heparin (ANES) Route: IV, Drug form: INJ, ONCE, Stop date: 12/13/19 12:10:00 ORTHOTIC/PROSTHETIC PRACTITIONER Start Date: 12/13/19 Stop Date: 12/13/19 Status: Completed Lactated Ringers Injection IV (ANES) 1000 mL Route: IV, Total Volume: 1,000, Start date: 12/13/19 10:55:00 ORTHOTIC/PROSTHETIC PRACTITIONER, Stop date: 11:55:00 ORTHOTIC/PROSTHETIC PRACTITIONER Start Date: 12/13/19 Stop Date: 12/13/19 Status: Completed lidocaine (ANES) Route: IV, Drug form: INJ, ONCE, Stop date: 12/13/19 12:15:00 ORTHOTIC/PROSTHETIC PRACTITIONER Start Date: 12/13/19 Stop Date: 12/13/19 Status: Completed midazolam (ANES) Route: IV, Drug form: SOLN, ONCE, Stop date: 12/13/19 11:45:00 ORTHOTIC/PROSTHETIC PRACTITIONER Start Date: 12/13/19 Stop Date: 12/13/19 Status: Completed midazolam (ANES) Route: IV, Drug form: SOLN, ONCE, Stop date: 12/13/19 12:15:00 ORTHOTIC/PROSTHETIC PRACTITIONER Start Date: 12/13/19 Stop Date: 12/13/19 Status: Completed ondansetron (ANES) Route: IV, Drug form: INJ, ONCE, Stop date: 12/13/19 12:00:00 ORTHOTIC/PROSTHETIC PRACTITIONER Start Date: 12/13/19 Stop Date: 12/13/19 Status: Completed propofol (ANES) Route: IV, Drug form: INJ, ONCE, Stop date: 12/13/19 12:05:00 ORTHOTIC/PROSTHETIC PRACTITIONER Start Date: 12/13/19 Stop Date: 12/13/19 Status: Completed propofol (ANES) Route: IV, Drug form: INJ, ONCE, Stop date: 12/13/19 12:46:00 ORTHOTIC/PROSTHETIC PRACTITIONER Start Date: 12/13/19 Stop Date: 12/13/19 Status: Completed protamine (ANES) Route: IV, Drug form: INJ, ONCE, Stop date: 12/13/19 12:56:00 ORTHOTIC/PROSTHETIC PRACTITIONER Start Date: 12/13/19 Stop Date: 12/13/19 Status: Completed vancomycin 1 gm, Route: IV, PRE OP, Dosing Weight 93.21, kg, Start date: 12/06/19 11:00:00 ORTHOTIC/PROSTHETIC PRACTITIONER, Duration: 1 day, Stop date: 12/07/19 10:59:00 ORTHOTIC/PROSTHETIC PRACTITIONER, ABX Indication: Surgical Prophylaxis Start Date: 12/06/19 Stop Date: 12/13/19 Status: Discontinued vancomycin (ANES) 1000 mg Route: IV, Drug form: INJ, Start date: 12/13/19 11:15:00 ORTHOTIC/PROSTHETIC PRACTITIONER, Stop date: 0 12:15:00 ORTHOTIC/PROSTHETIC PRACTITIONER Start Date: 12/13/19 Stop Date: 12/13/19 Status: Completed Results Most recent to 1 oldest [Reference Range]: Neutrophils # 4.8 K/CMM [1.5-8.1 K/CMM] (12/06/19 10:40 AM) Lymphocytes # 1.7 K/CMM [1.0-5.5 K/CMM] (12/06/19 10:40 AM) Monocytes # [0.0-0.8 0.7 K/CMM K/CMM] (12/06/19 10:40 AM) Eosinophils # 0.1 K/CMM [0.0-0.5 K/CMM] (12/06/19 10:40 AM) eGFR 88 mL/min/1.73m2 1 *NA* (12/06/19:40 AM) ABO/Rh O POS *Unknown* (12/06/1940 AM) Antibody Scrn Negative (12/06/1940 AM) AGAP [10.0-20.0 8.7 mEq/L mEq/L] *LOW* (12/06/19:40 AM) Basophils [0.0-1.0 0.4 % %] (12/06/19:40 AM) BUN [7-22 mg/dL] 11 mg/dL (12/06/19:40 AM) Calcium Lvl 8.9 mg/dL [8.5-10.5 mg/dL] (12/06/19:40 AM) Chloride Lvl [95-109 106 mEq/L mEq/L] (12/06/19 10:40 AM) CO2 [24-32 mEq/L] 32 mEq/L (12/06/19 10:40 AM) Creatinine Lvl 0.83 mg/dL [0.50-1.40 mg/dL] (12/06/19:40 AM) Eosinophils [0.0-4.0 1.9 % %] (12/06/19:40 AM) Glucose Lvl [70-99 85 mg/dL mg/dL] (12/06/19:40 AM) Hct [42.0-54.0 %] 40.9 % *LOW* (12/06/19:40 AM) Hgb [14.0-18.0 g/dL] 13.3 g/dL *LOW* (12/06/19:40 AM) Hgb A1C [<=5.6 %] 7.4 % *HI* (12/06/19 10:40 AM) INR [0.85-1.17] 1.02 (12/06/19 10:40 AM) Potassium Lvl 4.7 mEq/L [3.5-5.1 mEq/L] (12/06/19 10:40 AM) Lymphocytes 22.8 % [20.0-40.0 %] (12/06/19 10:40 AM) MCH [27.0-31.0 pg] 28.3 pg (12/06/19:40 AM) MCHC [32.0-36.0 32.6 g/dL g/dL] (12/06/19:40 AM) MCV [80.0-94.0 fL] 86.9 fL (12/06/19:40 AM) Monocytes [2.0-12.0 9.4 % %] (12/06/19:40 AM) MPV [7.4-10.4 fL] 9.8 fL (12/06/19:40 AM) Sodium Lvl [135-145 142 mEq/L mEq/L] (12/06/19:40 AM) Platelet [133-450 133 K/CMM K/CMM] (12/06/19:40 AM) Segs [45.0-75.0 %] 65.5 % (12/06/19:40 AM) PT [12.0-14.7 13.4 seconds seconds] (12/06/19:40 AM) PTT [22.9-35.8 31.4 seconds seconds] (12/06/19:40 AM) RBC [4.70-6.10 4.70 M/CMM M/CMM] (12/06/19 10:40 AM) RDW [11.5-14.5 %] 15.7 % *HI* (12/06/19:40 AM) WBC [3.7-10.4 K/CMM] 7.4 K/CMM (12/06/19 10:40 AM) 1Result Comment: The eGFR is calculated [...] Response Alcohol Past, Type Beer. Previous treatment: None.1 Employment/School Status: Retired. Substance Abuse Use: None. Smoking Status Former smoker; Type: Cigare ttes; Previous treatment: None; Ready to change: No; Concerns about tobacco use in house hold: No; Exposure to Tobacco Smoke None; Cigarette Smoking Last 365 Days N o; Reg Smoking Cessation Counseling No2 entered on: 12/06/19 1quit drinking in 2001 2Quit smoking 15 years ago Assessment and Plan No data available for this section
--- OUTSIDE RECORDS SUMMARY | 2020-03-11 13:02 | XMS REPORT | Continuity of Care Document ---
Author Author Bertha [employer], [employer] Organization [employer] Address Unknown Phone Unavailable Care Team Providers Care Ware Carrier Name Role Phone [facility] [place] [employer] Unavailable Un available Problems Problem Status Onset Date Classification Date Reported Comments Source UNK Active 0 03/03/2020 [facility] H93.90-UNSPECIFIED DISORDER OF EAR, UNSP Active 08/21/2019 [facility] LYMPH NODE Active 06/04/2019 [facility] Atherosclerotic heart disease of [place] coronary artery without angina pectoris 10/18/2018 04/30/2019 [facility] 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 W/DADA Active 10/06/2018 [facility] Malignant neoplasm of descending colon 10/04/2018 04/16/2019 [facility] Polyp of colon 09/02/2018 03/13/2019 [facility] COLON POLYP Active 05/31/2018 [facility] Chronic obstructive lung disease (disorder) Active Problem 12/15/2019 [facility] Diabetes mellitus (disorder) A ctive Problem [facility] Dyspnea on exertion (finding) Active Problem [facility] Gastroesophageal reflux disease (disorder) Active Problem 12/15/2019 [facility] Hypercholesterolemia (disorder) Active Problem [facility] Malignant tumor of colon (disorder) Resolved Problem [facility] Peripheral vascular disease (disorder) Active Problem [facility] Spinal stenosis of lumbar region (disorder) Active Problem 12/15/2019 [facility] Spinal stenosis, lumbosacral region 04/16/2019 [facility] Personal history of nicotine dependence 04/16/2019 [facility] 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) use of antithromboti cs/antiplatelets 04/16/2019 [facility] Acquired absence of other specified part s of digestive tract 04/16/2019 [facility] care home (current) use of aspirin 04/16/2019 [facility] Chronic obstructive pulmonary disease, unspecified 04/16/2019 [facility] Type 2 diabetes mellitus with diabetic p eripheral angiopathy without gangrene 04/16/2019 [facility] Gastro-esophageal reflux disease without esophagitis 04/16/2019 [facility] Other intervertebral disc displacement, lumbar region 04/16/2019 [facility] Type 2 diabetes mellitus without complications 04/30/2019 [facility] Pure hypercholesterolemia, unspecified 03/13/2019 [facility] Hyperlipidemia, unspecified 04/30/2019 [facility] Obstructive sleep apnea (adult) (pediatric) 03/13/2019 [facility] Essential (primary) hypertension 03/13/2019 [facility] Encounter for immunization 03/13/2019 [facility] Presence of aortocoronary bypass graft 04/30/2019 [facility] Chronic systolic (congestive) heart failure 04/30/2019 [facility] Malignant neoplasm of colon, unspecified 04/30/2019 [facility] Hypertensive heart disease with heart failure 04/30/2019 [facility] Medications Medication Details Route Status Patient Instructions Ordering Provider Order Date Source protamine (ANES) Route: IV, Dr ug form: INJ, ONCE, Stop date: 12/13/19 12:56:00 OCCUPATIONAL THERAPY AIDES TEACHER Inactive 12/13/2019 [facility] propofol (ANES) Route: IV, Chad g form: INJ, ONCE, Stop date: 12/13/19 12:46:00 OCCUPATIONAL THERAPY AIDES TEACHER Inactive 12/13/2019 [facility] lidocaine (ANES) Route: IV, Dr ug form: INJ, ONCE, Stop date: 12/13/19 12:15:00 OCCUPATIONAL THERAPY AIDES TEACHER Inactive 12/13/2019 [facility] midazolam (ANES) Route: IV, Dr ug form: SOLN, ONCE, Stop date: 12/13/19 12:15:00 OCCUPATIONAL THERAPY AIDES TEACHER Inactive 12/13/2019 [facility] heparin (ANES) Route: IV, Drug form: INJ, ONCE, Stop date: 12/13/19 12:10:00 OCCUPATIONAL THERAPY AIDES TEACHER Inactive 12/13/2019 [facility] propofol (ANES) Route: IV, Chad g form: INJ, ONCE, Stop date: 12/13/19 12:05:00 OCCUPATIONAL THERAPY AIDES TEACHER Inactive 12/13/2019 [facility] fentaNYL (ANES) Route: IV, Chad g form: INJ, ONCE, Stop date: 12/13/19 12:05:00 OCCUPATIONAL THERAPY AIDES TEACHER Inactive 12/13/2019 [facility] ondansetron (ANES) Route: IV, Drug form: INJ, ONCE, Stop date: 12/13/19 12:00:00 OCCUPATIONAL THERAPY AIDES TEACHER Inactive 12/13/2019 [facility] fentaNYL (ANES) Route: IV, Chad g form: INJ, ONCE, Stop date: 12/13/19 11:55:00 OCCUPATIONAL THERAPY AIDES TEACHER Inactive 12/13/2019 [facility] ceFAZolin (ANES) Route: IV, Dr ug form: INJ, ONCE, Stop date: 12/13/19 11:50:00 OCCUPATIONAL THERAPY AIDES TEACHER Inactive 12/13/2019 [facility] midazolam (ANES) Route: IV, Dr ug form: SOLN, ONCE, Stop date: 12/13/19 11:45:00 OCCUPATIONAL THERAPY AIDES TEACHER Inactive 12/13/2019 [facility] vancomycin (ANES) 1000 mg Rout e: IV, Drug form: INJ, Start date: 12/13/19 11:15:00 OCCUPATIONAL THERAPY AIDES TEACHER, Stop date: 12/13/19 12:15:00 OCCUPATIONAL THERAPY AIDES TEACHER Inactive 12/13/2019 [facility] Lactated Ringers Injection IV (ANES) 1000 mL Route: IV, Total Volume: 1,000, Start date: 12/13/19 10:55:00 OCCUPATIONAL THERAPY AIDES TEACHER, Stop date: 12/13/19 11:55:00 OCCUPATIONAL THERAPY AIDES TEACHER Inactive 12/13/2019 [facility] clopidogrel 75 mg oral tablet 75 mg = 1 tab, PO, Daily, 0 Refill(s) Active 12/06/2019 [facility] Ancef 2 gm, Route: IVPB, PRE O P, Dosing Weight 93.21, kg, Start date: 12/06/19 11:00:00 OCCUPATIONAL THERAPY AIDES TEACHER, Duration: 1 day, Stop date: 12/07/19 10:59:00 OCCUPATIONAL THERAPY AIDES TEACHER, ABX Indication: Surgical Prophylaxis No Longer Active 12/06/2019 [facility] Vancomycin 1 gm, Route: IV, AR E OP, Dosing Weight 93.21, kg, Start date: 12/06/19 11:00:00 OCCUPATIONAL THERAPY AIDES TEACHER, Duration: 1 day, Stop date: 12/07/19 10:59:00 OCCUPATIONAL THERAPY AIDES TEACHER, ABX Indication: Surgical Prophylaxis No Longer Active 12/06/2019 [facility] lidocaine (ANES) Route: IV, Dr ug form: INJ, ONCE, Stop date: 09/17/19 9:42:00 OCCUPATIONAL THERAPY AIDES TEACHER Inactive 09/17/2019 [facility] ceFAZolin (ANES) Route: IV, Dr ug form: INJ, ONCE, Stop date: 09/17/19 9:27:00 OCCUPATIONAL THERAPY AIDES TEACHER Inactive 09/17/2019 [facility] ondansetron (ANES) Route: IV, Drug form: INJ, ONCE, Stop date: 09/17/19 9:27:00 OCCUPATIONAL THERAPY AIDES TEACHER Inactive 09/17/2019 [facility] midazolam (ANES) Route: IV, Dr ug form: SOLN, ONCE, Stop date: 09/17/19 9:22:00 OCCUPATIONAL THERAPY AIDES TEACHER Inactive 09/17/2019 [facility] fentaNYL (ANES) Route: IV, Chad g form: INJ, ONCE, Stop date: 09/17/19 9:22:00 OCCUPATIONAL THERAPY AIDES TEACHER Inactive 09/17/2019 [facility] Acetaminophen 300 MG / Codeine Phosphate 30 MG Oral Tablet [Tylenol with Codeine #3] 1 - 2 tab, PO, Q6H, PRN Pain, X 2 day, # 10 tab, 0 Refill(s) No Longer Active 09/17/2019 [facility] propofol (ANES) 10 mg Route: I V, Drug form: INJ, Start date: 09/17/19 8:52:00 OCCUPATIONAL THERAPY AIDES TEACHER, Stop date: 09/17/19 9:52:00 OCCUPATIONAL THERAPY AIDES TEACHER Inactive 09/17/2019 [facility] Lactated Ringers Injection IV (ANES) 1000 mL Route: IV, Total Volume: 1,000, Start date: 09/17/19 8:41:00 OCCUPATIONAL THERAPY AIDES TEACHER, Stop date: 09/17/19 9:41:00 OCCUPATIONAL THERAPY AIDES TEACHER Inactive 09/17/2019 [facility] Calcium Chloride 0.0014 MEQ/ML / Potassi um Chloride 0.004 MEQ/ML / Sodium Chloride 0.103 MEQ/ML / Sodium Lactate 0.028 MEQ/ML Injectable Solution 1,000 mL, Rate: 75 ml/hr, Infuse over: 1 3.3 hr, Route: IV, Dosing Weight 93.182 kg, Total Volume: 1,000, Start date: 09/17/19 8:03:00 OCCUPATIONAL THERAPY AIDES TEACHER, Duration: 30 day, Stop date: 10/17/19 8:02:00 OCCUPATIONAL THERAPY AIDES TEACHER, 2.19, m2 Inactive 09/17/2019 [facility] Sodium Chloride 0.9% IV 1000 mL 1,000 mL, Rate: 75 ml/hr, Infuse over: 13.3 hr, Route: IV, Dosing Weight 90.909 kg, Total Volume: 1,000, Start date: 07/11/19 7:03:00 CDT, Duration: 30 day, Stop date: 08/10/19 7:02:00 CDT, 2.16, m2 Inactive 07/11/2019 [facility] clopidogrel 75 MG Oral Tablet [Plavix] 75 mg = 1 tab, PO, Daily, 0 Refill(s) Active 07/05/2019 [facility] carvedilol 12.5 mg oral tablet 12.5 mg = 1 tab, PO, BID, 0 Refill(s) Active 07/03/2019 [facility] cilostazol 100 mg oral tablet 100 mg = 1 tab, PO, BID, 0 Refill(s) Active 07/03/2019 [facility] Advair Diskus 100 mcg-50 mcg inhalation powder INHALATION, BID, 0 Refill(s) Active 07/03/2019 [facility] lisinopril 10 mg oral tablet 1 0 mg = 1 tab, PO, BID, 0 Refill(s) Active 07/03/2019 [facility] sitagliptin 100 MG Oral Tablet [Januvia] 100 mg = 1 tab, PO, Daily, 0 Refill(s) Active 07/03/2019 [facility] pantoprazole 40 mg oral enteric coated tablet 40 mg = 1 tab, PO, Daily, 0 Refill(s) Active 07/03/2019 [facility] ticagrelor 90 mg oral tablet 9 0 mg = 1 tab, PO, Q12H, # 180 tab, 0 Refill(s) Active 10/11/2018 [facility] carvedilol 25 mg oral tablet 2 5 mg = 1 tab, PO, BID, # 180 tab, 0 Refill(s) Active 10/11/2018 [facility] Aspirin 81 MG Enteric Coated Tablet 81 mg = 1 tab, PO, Daily, # 90 tab, 0 Refill(s) Active 10/11/2018 [facility] isosorbide mononitrate 30 mg oral tablet , extended release 30 mg, PO, QAM, # 90 tab, 0 Refill(s) Active 10/11/2018 [facility] lisinopril 20 mg oral tablet 4 0 mg = 2 tab, PO, Daily, # 180 tab, 0 Refill(s) Active 10/11/2018 [facility] Glipizide 10 MG Oral Tablet [Glucotrol] 10 mg = 1 tab, PO, Daily, # 90 tab, 0 Refill(s) Active 10/11/2018 [facility] Tamsulosin hydrochloride 0.4 MG Oral Capsule [Flomax] 0.4 mg = 1 cap, PO, Daily, # 90 cap, 0 Refill(s) Active 10/11/2018 [facility] Rosuvastatin calcium 20 MG Oral Tablet [Crestor] 20 mg = 1 tab, PO, Bedtime, # 90 tab, 0 Refill(s) Active 10/11/2018 [facility] sitagliptin 100 MG Oral Tablet [Januvia] 100 mg = 1 tab, PO, Daily, # 90 tab, 0 Refill(s) Active 10/11/2018 [facility] Metformin hydrochloride 1000 MG Oral Tablet 1,000 mg, PO, BID, # 180 tab, 0 Refill(s) Active 10/11/2018 [facility] Flomax Notes: (Same As: Flomax ) "Do Not Crush" Inactive 10/11/2018 [facility] pantoprazole Notes: Tablet essie uld not be chewed or crushed. (Same as: Protonix) Inactive 10/11/2018 [facility] Aspirin Notes: Do not crush or chew. (Same As: Ecotrin) Inactive 10/11/2018 [facility] Ticagrelor 90 mg, Route: PO, D rug form: TAB, BID, Dosing Weight 94.545, kg, Start date: 10/11/18 9:00:00 OCCUPATIONAL THERAPY AIDES TEACHER, Duration: 30 day, Stop date: 11/09/18 17:00:00 OCCUPATIONAL THERAPY AIDES TEACHER No Longer Active 10/11/2018 [facility] Aspirin 81 MG Chewable Tablet 81 mg, Route: PO, Drug form: CHEWTAB, Daily, Dosing Weight 94.545, kg, Start date: 10/11/18 9:00:00 OCCUPATIONAL THERAPY AIDES TEACHER, Duration: 30 day, Stop date: 11/09/18 9:00:00 OCCUPATIONAL THERAPY AIDES TEACHER No Longer Active 10/11/2018 [facility] Imdur 60 mg, Route: PO, Drug f orm: ERTAB, QAM, Dosing Weight 94.545, kg, Start date: 10/11/18 9:00:00 OCCUPATIONAL THERAPY AIDES TEACHER, Duration: 30 day, Stop date: 11/09/18 9:00:00 OCCUPATIONAL THERAPY AIDES TEACHER Inactive 10/11/[address] [facility] nt Lisinopril 10 mg, Route: PO, D rug form: TAB, Daily, Dosing Weight 94.545, kg, Start date: 10/11/18 9:00:00 OCCUPATIONAL THERAPY AIDES TEACHER, Duration: 30 day, Stop date: 11/09/18 9:00:00 OCCUPATIONAL THERAPY AIDES TEACHER No Longer Active 10/11/[address] [facility] nt Coreg Notes: Give with food. ( Same As: Coreg) No Longer Active 10/11/2018 [facility] Brilinta Notes: (Same as: Bril inta) Inactive 10/11/2018 [facility] Imdur Notes: (Same as:Imdur) " Do Not Crush" Take on empty stomach/ full glass of water. Do not crush Inactive 10/11/2018 [facility] Coreg Notes: Give with food. ( Same As: Coreg) Inactive 10/11/2018 [facility] Lisinopril Notes: (Same as: Pr inivil, Zestril) No Longer Active 10/11/2018 [facility] Crestor Notes: (Same As: Crest or) No Longer Active 10/11/2018 [facility] Saline Flush 0.9% Notes: (Same as: BD Posiflush) No Longer Active 10/11/2018 [facility] pantoprazole Notes: For IV pus h reconstitute with 10 ml 0.9% sodium chloride and push over 2 minutes. (Same as: Protonix) Inactive 10/11/2018 [facility] Imdur Notes: (Same as:Imdur) " Do Not Crush" Take on empty stomach/ full glass of water. Do not crush No Longer Active 10/11/2018 [facility] Lisinopril 40 mg, Route: PO, D aily, Dosing Weight 94.545, kg, Start date: 10/10/18 20:43:00 OCCUPATIONAL THERAPY AIDES TEACHER, Duration: 30 day, Stop date: 11/09/18 9:00:00 OCCUPATIONAL THERAPY AIDES TEACHER Inactive 10/11/2018 [facility] lisinopril 10 mg oral tablet 1 0 mg = 1 tab, PO, Daily, # 30 tab, 0 Refill(s) No Longer Active 10/11/[address] [facility] nt Dextrose 50% Syringe 25 gm, 50 mL, Route: IVP, Drug Form: INJ, Dosing Weight 94.545, kg, PRN, PRN Blood Glucose Results, Start date: 10/10/18 20:05:00 OCCUPATIONAL THERAPY AIDES TEACHER, Duration: 30 day, Stop date: 11/09/18 20:04:00 OCCUPATIONAL THERAPY AIDES TEACHER No Longer Active 10/11/2018 [facility] Glucagon 1 mg, Route: IM, Drug form: PDR/INJ, PRN, Dosing Weight 94.545, kg, PRN Blood Glucose Results, Start date: 10/10/18 20:05:00 OCCUPATIONAL THERAPY AIDES TEACHER, Duration: 30 day, Stop date: 11/09/18 20:04:00 OCCUPATIONAL THERAPY AIDES TEACHER No Longer Active 10/11/2018 [facility] Insulin Lispro Notes: (Same as : Humalog ) Roll in palms of hands gently; Do not shake `vigorously. "Single Patient Use Only " WASTE: F/P - Black; E - Municipal Trash Bin Stable for 28 days at room temp erature. Expires in days from Date No Longer Active 10/11/2018 [facility] potassium phosphate Notes: (Sa me as: K Phosphate.) Do not infuse phosphorous concurrently in the same line as TPN or IVF that contains calcium. For double lumen central lines, phosphorous may be infused in a separate lumen from TPN. 1 mMol phoshate has 1.47 mEq potassium Infuse over 4 hours No Longer Active 10/11/2018 [facility] sodium phosphate Notes: Infuse over 4 hour. Do not infuse phosphorous concurrently in the same line as TPN or IVF that contains calcium. For double lumen central lines, phosphorous may be infused in a separate lumen from TPN. No Longer Active 10/11/[address] [facility] nter Magnesium Oxide Notes: (Same a s: Mag-Ox 400) Magnesium oxide [id number] elemental magnesium Dose=____mg magnesium oxide (___mg elemental magnesium) No Longer Active 10/11/[address] [facility] nter Magnesium Sulfate Notes: WASTE : F/P - Sink; E - Municipal Trash Bin No Longer Active 10/11/[address] [facility] nter Calcium Gluconate Notes: WASTE : F/P - Sink; E - Municipal Trash Bin No Longer Active 10/11/[address] [facility] nter potassium phosphate-sodium phosphate 250 mg-280 mg-160 mg oral powder for reconstitution Notes: (Same as: Phos-NaK) Each 1.5 gm pkt has 250mg phosphorous. Mix w/2.5oz water and stir. No Longer Active 10/11/2018 [facility] Calcium Carbonate 500 MG Chewable Tablet Notes: (Same As: Tums) Calcium Carbonate 500 mg = 200 mg elemental calcium Dose = mg calcium carbonate ( mg elemental calcium) No Longer Active 10/11/2018 [facility] Potassium Chloride Notes: (Kian e as: KCL) Infuse over 2 hours. No Longer Active 10/11/2018 [facility] Saline Flush 0.9% Notes: (Same as: BD Posiflush) No Longer Active 10/11/2018 [facility] Nystatin 100 UNT/MG Topical Powder Notes: (Same as:Mycostatin, Nilstat) For external use only. No Longer Active 10/11/2018 [facility] pantoprazole Notes: For IV pus h reconstitute with 10 ml 0.9% sodium chloride and push over 2 minutes. (Same as: Protonix) Inactive 10/11/2018 [facility] Nitroglycerin 0.3 mg, Route: S L, Q5Min, Dosing Weight 94.545, kg, PRN Chest Pain, Start date: 10/10/18 19:36:00 OCCUPATIONAL THERAPY AIDES TEACHER, Duration: 30 day, Stop date: 11/09/18 19:35:00 OCCUPATIONAL THERAPY AIDES TEACHER Inactive 10/11/[address] [facility] nter Hydralazine Notes: (Same as: A presoline) Push over 5 minutes Inactive 10/11/2018 [facility] Labetalol 10 mg, Route: IV, ON CE, Dosing Weight 94.545, kg, Start date: 10/10/18 18:45:00 OCCUPATIONAL THERAPY AIDES TEACHER, Stop date: 10/10/18 18:45:00 OCCUPATIONAL THERAPY AIDES TEACHER Inactive 10/11/2018 [facility] Nitroglycerin Notes: (Same as: Nitroquick, Nitrostat) "Do Not Crush" Sublingual tablet No Longer Active 10/11/[address] [facility] nter Sodium Chloride 0.9% (Bolus) IV 250 mL, 250 ml/hr, Infuse Over: 1 hr, Route: IV, 250, Drug form: INJ, ONCE, Dosing Weight 94.545 kg, Start date: 10/10/18 18:35:00 OCCUPATIONAL THERAPY AIDES TEACHER, Stop date: 10/10/18 18:35:00 OCCUPATIONAL THERAPY AIDES TEACHER Inactive 10/11/2018 [facility] Sodium Chloride 0.9% IV 750 mL 750 mL, Rate: 75 ml/hr, Infuse over: 10 hr, Route: IV, Dosing Weight 94.545 kg, Total Volume: 750, Start date: 10/10/18 18:35:00 OCCUPATIONAL THERAPY AIDES TEACHER, Duration: 10 hr, Stop date: 10/11/18 4:34:00 OCCUPATIONAL THERAPY AIDES TEACHER, 2.2, m2 No Longer Active 10/11/2018 [facility] Streptococcus pneumoniae serotype 1 caps ular antigen diphtheria [id number] protein conjugate vaccine / Streptococcus pneumoniae serotype 14 capsular antigen diphtheria [id number] protein conjugate vaccine / Streptococcus pneumoniae serotype 18C capsular antigen d Notes: Shake well prior to use (Same as: Prevnar 13) No Longe r Active 10/10/[address] [facility] nter Magnesium Sulfate Notes: WASTE : F/P - Sink; E - Municipal Trash Bin Inactive 10/10/2018 [facility] NS 1,000 mL 1,000 mL, Rate: 75 ml/hr, Infuse over: 13.3 hr, Route: IV, Dosing Weight 94.545 kg, Total Volume: 1,000, Start date: 10/10/18 10:16:00 OCCUPATIONAL THERAPY AIDES TEACHER, Duration: 30 day, Stop date: 11/09/18 10:15:00 OCCUPATIONAL THERAPY AIDES TEACHER, 2.2, m2 No Longer Active 10/10/2018 [facility] Oxycodone Hydrochloride 5 MG Oral Tablet 5 mg, Route: PO, Drug form: TAB, ONCE, Dosing Weight 98.778, kg, PRN Pain Score 4-6, Start date: 09/27/18 17:26:00 OCCUPATIONAL THERAPY AIDES TEACHER Inactive 09/27/2018 [facility] Acetaminophen 300 MG / Codeine Phosphate 30 MG Oral Tablet [Tylenol with Codeine #3] 1 - 2 tab, PO, Q4H, PRN Pain, X 3 day, # 20 tab, 0 Refill(s) No Longer Active 09/27/2018 [facility] ePHEDrine (ANES) Route: IV, Dr ug form: INJ, ONCE, Stop date: 09/27/18 15:58:00 OCCUPATIONAL THERAPY AIDES TEACHER Inactive 09/27/2018 [facility] ondansetron (ANES) Route: IV, Drug form: INJ, ONCE, Stop date: 09/27/18 15:38:00 OCCUPATIONAL THERAPY AIDES TEACHER Inactive 09/27/2018 [facility] ceFAZolin (ANES) Route: IV, Dr ug form: INJ, ONCE, Stop date: 09/27/18 15:38:00 OCCUPATIONAL THERAPY AIDES TEACHER Inactive 09/27/2018 [facility] lidocaine (ANES) Route: IV, Dr ug form: INJ, ONCE, Stop date: 09/27/18 15:38:00 OCCUPATIONAL THERAPY AIDES TEACHER Inactive 09/27/2018 [facility] propofol (ANES) Route: IV, Chad g form: INJ, ONCE, Stop date: 09/27/18 15:38:00 OCCUPATIONAL THERAPY AIDES TEACHER Inactive 09/27/2018 [facility] fentaNYL (ANES) Route: IV, Chad g form: INJ, ONCE, Stop date: 09/27/18 15:33:00 OCCUPATIONAL THERAPY AIDES TEACHER Inactive 09/27/2018 [facility] midazolam (ANES) Route: IV, Dr ug form: SOLN, ONCE, Stop date: 09/27/18 15:33:00 OCCUPATIONAL THERAPY AIDES TEACHER Inactive 09/27/2018 [facility] Bupivacaine Hydrochloride 5 MG/ML / Epin ephrine 0.005 MG/ML Injectable Solution Notes: (bupivacaine-epi 0.5%-1:200,000 3 0 ml VL) Not for use in continuous infusion. (Same As: Marcaine w/Epi) No Longer Active 09/27/2018 [facility] Lactated Ringers Injection IV (ANES) 1000 mL Route: IV, Total Volume: 1,000, Start date: 09/27/18 14:49:00 OCCUPATIONAL THERAPY AIDES TEACHER, Stop date: 09/27/18 15:49:00 OCCUPATIONAL THERAPY AIDES TEACHER Inactive 09/27/2018 [facility] Lactated Ringers IV 1000 mL 1, 000 mL, Rate: 40 ml/hr, Infuse over: 25 hr, Route: IV, Dosing Weight 98.778 kg, Total Volume: 1,000, Start date: 09/27/18 13:36:00 OCCUPATIONAL THERAPY AIDES TEACHER, Duration: 30 day, Stop date: 10/27/18 13:35:00 OCCUPATIONAL THERAPY AIDES TEACHER, 2.25, m2 Inactiv e 09/27/2018 [facility] cilostazol 100 mg oral tablet 100 mg = 1 tab, PO, Daily, 0 Refill(s) No Longer Active 09/25/2018 [facility] lisinopril 40 mg oral tablet 4 0 mg = 1 tab, PO, BID, # 90 tab, 1 Refill(s) No Longer Active 09/25/2018 [facility] clopidogrel 75 mg oral tablet 75 mg = 1 tab, PO, Daily, # 90 tab, 3 Refill(s) No Longe r Active 09/25/2018 [facility] Aspirin Enteric Coated 81 mg oral delaye d release tablet 81 mg = 1 tab, PO, Daily, 0 Refill(s) No Longer Active 09/25/2018 [facility] Lisinopril Notes: (Same as: Pr inivil, Zestril) Inactive 08/24/2018 [facility] Tylenol Notes: Do not exceed 4 gm/day. (Same as: Tylenol) Inactive 08/24/2018 [facility] Incruse Ellipta Incruse Ellipt a, 1 inhalation, Drug form: MISC, Route: INHALATION, Daily, 08/23/18 13:30:00 CDT, Duration: 30 day, Stop date: 09/22/18 9:00:00 OCCUPATIONAL THERAPY AIDES TEACHER No Longer Active 08/23/[address] [facility] nter Breo Ellipta 100 mcg-25 mcg inhalation powder Breo Ellipta 100 mcg-25 mcg inhalation powder, 1 puff, Drug form: MISC, Route: INHALATION, Daily, 08/23/18 13:30:00 CDT, Duration: 30 day, Stop date: 09/22/18 9:00:00 OCCUPATIONAL THERAPY AIDES TEACHER No Longer Active 08/23/2018 [facility] Coreg 25 mg, Route: PO, Drug f orm: TAB, BID, Dosing Weight 99.545, kg, Start date: 08/23/18 9:00:00 CDT, Duration: 30 day, Stop date: 09/21/18 17:00:00 OCCUPATIONAL THERAPY AIDES TEACHER Inactive 08/23/[address] [facility] nter Amlodipine Notes: (Same as: No rvasc) No Longer Active 08/23/2018 [facility] Aspirin Notes: Do not crush or chew. (Same As: Ecotrin) No Longer Active 08/23/2018 [facility] Dextrose 50% Syringe 12.5 gm, 25 mL, Route: IVP, Drug Form: INJ, Dosing Weight 99.3, kg, PRN, PRN Blood Glucose Results, Start date: 08/23/18 8:40:00 CDT, Duration: 30 day, Stop date: 09/22/18 7:39:00 [employer]ER No Longer Active 08/23/2018 [facility] Glucagon 1 mg, Route: IM, Drug form: PDR/INJ, PRN, Dosing Weight 99.3, kg, PRN Blood Glucose Results, Start date: 08/23/18 8:40:00 CDT, Duration: 30 day, Stop date: 09/22/18 7:39:00 OCCUPATIONAL THERAPY AIDES TEACHER No Longer Active 08/23/2018 [facility] Insulin Lispro Notes: (Same as : Humalog ) Roll in palms of hands gently; Do not shake `vigorously. "Single Patient Use Only " WASTE: F/P - Black; E - Municipal Trash Bin Stable for 28 days at room temp erature. Expires in days from Date No Longer Active 08/23/2018 [facility] Coreg Notes: Give with food. ( Same As: Coreg) No Longer Active 08/22/2018 [facility] Celebrex Notes: NSAID. Please check indication. Not for seizure. (Same As: CeleBREX) N o Longer Active 08/22/[address] [facility] nter Entereg Notes: Same as: Entere g Maximum of 15 doses Alert Restricted medication Alvimopan (Entergen) order form must be completed prior to dispensing. No Longer Active 08/22/[address] [facility] nter Flomax Notes: (Same As: Flomax ) "Do Not Crush" No Longer Active 08/22/2018 [facility] pantoprazole Notes: Tablet essie uld not be chewed or crushed. (Same as: Protonix) N o Longer Active 08/22/[address] [facility] nter Lisinopril Notes: (Same as: Pr inivil, Zestril) No Longer Active 08/22/2018 [facility] Isosorbide Notes: (Same as:Imd ur) "Do Not Crush" Take on empty stomach/ full glass of water. Do not crush No Longer Active 08/22/2018 [facility] Breo Ellipta 100 mcg-25 mcg inhalation powder 1 puff, Route: INHALATION, Drug Form: PWDR, Dosing Weight 99.545, kg, Daily, Start date: 08/22/18 9:00:00 CDT, Duration: 30 day, Stop date: 09/20/18 9:00:00 [employer]CCUPATIONAL [employer]ER[employer]IDES TE[employer]ER No Longer Active 08/22/2018 [facility] Enoxaparin Notes: (Same as: Lo venox) No Longer Active 08/22/2018 [facility] Methocarbamol Notes: (Same as: Robaxin) No Longer Active 08/22/2018 [facility] Ofirmev Notes: Infuse over 15 minutes Do not exceed 4gm/day of acetaminophen MEDICATION WASTE Product Size: 1000 mg Product Wasted: ___ mg No Longer Active 08/22/[address] [facility] nter gabapentin 300 MG Oral Capsule Notes: (Same as: Neurontin) No Longer Active 08/22/2018 [facility] Famotidine Notes: (Same as: Pe pcid) No Longer Active 08/22/2018 [facility] Crestor Notes: (Same As: Crest or) No Longer Active 08/22/2018 [facility] metoprolol (ANES) Route: IV, D rug form: INJ, ONCE, Stop date: 08/21/18 19:36:00 CDT Inactive 08/22/[address] [facility] nter neostigmine (ANES) Route: IV, Drug form: INJ, ONCE, Stop date: 08/21/18 19:36:00 CDT Inactive 08/22/[address] [facility] nter labetalol (ANES) Route: IV, Dr ug form: INJ, ONCE, Stop date: 08/21/18 19:36:00 CDT Inactive 08/22/[address] [facility] nter ondansetron (ANES) Route: IV, Drug form: INJ, ONCE, Stop date: 08/21/18 19:36:00 CDT Inactive 08/22/[address] [facility] nter glycopyrrolate (ANES) Route: I V, Drug form: INJ, ONCE, Stop date: 08/21/18 19:36:00 CDT Inactive 08/22/[address] 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 Inactive 08/22/2018 [facility] Dilaudid Notes: Same as Dilaud id No Longer Active 08/22/2018 [facility] Ondansetron Notes: (Same as: Ifeanyi canas) MEDICATION WASTE Product Size: 4 mg Product Wasted: ___ mg No Longer Active 08/22/2018 [facility] Diphenhydramine Notes: (Same a s: Benadryl) No Longer Active 08/22/2018 [facility] Calcium Chloride 0.0014 MEQ/ML / Potassi um Chloride 0.004 MEQ/ML / Sodium Chloride 0.103 MEQ/ML / Sodium Lactate 0.028 MEQ/ML Injectable Solution 1,000 mL, Rate: 50 ml/hr, Infuse over: 2 0 hr, Route: IV, Dosing Weight 99.545 kg, Total Volume: 1,000, Start date: 08/21/18 19:20:00 CDT, Duration: 30 day, Stop date: 09/20/18 19:19:00 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 nter ceFAZolin (ANES) Route: IV, Dr ug form: INJ, ONCE, Stop date: 08/21/18 18:11:00 CDT Inactive 08/21/[address] [facility] nter Insulin regular 60 units) W ASTE: F/P - Black; E - Municipal Trash Bin Stable for 28 days at room temperature Expires in days from Date N o Longer Active 08/21/[address] [facility] nter rocuronium (ANES) Route: IV, D rug form: INJ, ONCE, Stop date: 08/21/18 17:46:00 CDT Inactive 08/21/[address] [facility] nter norepinephrine (ANES) 10 microgram Route: IV, Drug form: INJ, Start date: 08/21/18 17:34:00 CDT, Stop date: 08/21/18 18:34:00 CDT Inactive 08/21/2018 [facility] acetaminophen (ANES) Route: IV , Drug form: INJ, ONCE, Stop date: 08/21/18 17:11:00 CDT Inactive 08/21/[address] [facility] nter propofol (ANES) Route: IV, Chad g form: INJ, ONCE, Stop date: 08/21/18 17:01:00 CDT Inactive 08/21/[address] [facility] nter indocyanine green (ANES) Route : IV, Drug form: PDR/INJ, ONCE, Stop date: 08/21/18 17:01:00 CDT Inactive 08/21/[address] [facility] nter norepinephrine (ANES) Route: I V, Drug form: INJ, ONCE, Stop date: 08/21/18 16:10:00 CDT Inactive 08/21/[address] [facility] nter glycopyrrolate (ANES) Route: I V, Drug form: INJ, ONCE, Stop date: 08/21/18 16:00:00 CDT Inactive 08/21/[address] [facility] nter Insulin regular (ANES) Route: IV, Drug form: INJ, ONCE, Stop date: 08/21/18 15:45:00 CDT Inactive 08/21/[address] [facility] nter metroNIDAZOLE (ANES) Route: IV , Drug form: INJ, ONCE, Stop date: 08/21/18 15:35:00 CDT Inactive 08/21/[address] [facility] nter EPINEPHrine (ANES) Route: IV, Drug form: INJ, ONCE, Stop date: 08/21/18 15:31:00 CDT Inactive 08/21/[address] [facility] nter ceFAZolin (ANES) Route: IV, Dr ug form: INJ, ONCE, Stop date: 08/21/18 15:30:00 CDT Inactive 08/21/[address] [facility] nter metoprolol (ANES) Route: IV, D rug form: INJ, ONCE, Stop date: 08/21/18 15:30:00 CDT Inactive 08/21/[address] [facility] nter norepinephrine (ANES) Route: I V, Drug form: INJ, ONCE, Stop date: 08/21/18 15:30:00 CDT Inactive 08/21/[address] [facility] nter dexmedetomidine (ANES) 200 microgram Route: IV, Drug form: INJ, Start date: 08/21/18 15:27:00 CDT, Stop date: 08/21/18 16:27:00 CDT Inactive 08/21/2018 [facility] propofol (ANES) Route: IV, Chad g form: INJ, ONCE, Stop date: 08/21/18 15:25:00 CDT Inactive 08/21/[address] [facility] nter rocuronium (ANES) Route: IV, D rug form: INJ, ONCE, Stop date: 08/21/18 15:25:00 CDT Inactive 08/21/[address] [facility] nter fentaNYL (ANES) Route: IV, Chad g form: INJ, ONCE, Stop date: 08/21/18 15:25:00 CDT Inactive 08/21/[address] [facility] nter lidocaine (ANES) Route: IV, Dr ug form: INJ, ONCE, Stop date: 08/21/18 15:25:00 CDT Inactive 08/21/[address] [facility] nter Ondansetron Notes: (Same as: Ifeanyi canas) MEDICATION WASTE Product Size: 4 mg Product Wasted: ___ mg No Longer Active 08/21/2018 [facility] Flumazenil Notes: (Same as: Ro mazicon) No Longer Active 08/21/2018 [facility] Hydromorphone Notes: Same as D ilaudid No Longer Active 08/21/2018 [facility] Naloxone Notes: Same as Narcan No Longer Active 08/21/2018 [facility] Labetalol 10 mg, 2 mL, Route: IVP, Drug form: INJ, Q5Min, Dosing Weight 99.545, kg, PRN Elevated BP, Start date: 08/21/18 15:19:00 CDT, Duration: 5 doses or times, Stop date: 08/22/18 0:00:00 CDT No Longer Active 08/21/2018 [facility] Hydralazine Notes: (Same as: A presoline) Push over 5 minutes Inactive 08/21/2018 [facility] Insulin regular (ANES) 1 unit Route: IV, Drug form: INJ, Start date: 08/21/18 15:18:00 CDT, Stop date: 08/21/18 16:18:00 CDT Inactive 08/21/2018 [facility] SUFentanil (ANES) 50 microgram Route: IV, Drug form: INJ, Start date: 08/21/18 15:09:00 CDT, Stop date: 08/21/18 16:09:00 CDT Inactive 08/21/2018 [facility] norepinephrine (ANES) 10 microgram Route: IV, Drug form: INJ, Start date: 08/21/18 15:06:00 CDT, Stop date: 08/21/18 16:06:00 CDT Inactive 08/21/2018 [facility] Sodium Chloride 0.9% IV (ANES) 500 mL Route: IV, Total Volume: 500, Start date: 08/21/18 15:02:00 CDT, Stop date: 08/21/18 16:02:00 CDT Inactive 08/21/2018 [facility] PlasmaLyte A PH-7.4 (ANES) 1000 mL Route: IV, Total Volume: 1,000, Start date: 08/21/18 14:45:00 CDT, Stop date: 08/21/18 15:45:00 CDT Inactive 08/21/2018 [facility] Lactated Ringers Injection IV (ANES) 1000 mL Route: IV, Total Volume: 1,000, Start date: 08/21/18 14:10:00 CDT, Stop date: 08/21/18 15:10:00 CDT Inactive 08/21/2018 [facility] bupivacaine liposome Notes: (S sanket as: Exparel) NOT FOR IV use Postoperative analgesia: Infiltration (local): Dose is based on surgical site and volume required to cover the area (in general, the maximum total dose is 266 mg). Bunionectomy: 7 mL into the tissues surrounding the osteotomy and 1 mL into the subcutaneous tissue of the surgical site (total dose = 8 mL [106 mg]) Hemorrhoidectomy: 30 mL (20 mL vial diluted with 10 mL NS) divided and administered as 6 injections of 5 mL each (total dose = 30 mL [266 mg]) No Longer Active 08/21/2018 [facility] albumin human 5% intravenous solution Notes: LOT#: Mfg: WASTE: F/P - Red; E -Red (Same as: Albuminar) "blood product derivative" No Longer Active 08/21/[address] [facility] nter Entereg Notes: Same as: Entere g Maximum of 15 doses Alert Restricted medication Alvimopan (Entergen) order form must be completed prior to dispensing. Inactive 08/21/2018 [facility] Robaxin Notes: (Same as:Robaxi n) Inactive 08/21/2018 [facility] acetaminophen Notes: Max aceta minophen 4000 mg/day (4 gm/day). (Same as: Tylenol Extra Strength) Inactive 08/21/[address] [facility] nter Neurontin Notes: (Same as: Dougie rontin) Inactive 08/21/2018 [facility] Flagyl Notes: (Same as: Flagyl ) Avoid alcohol. Inactive 08/21/2018 [facility] ceFAZolin + sterile water 20 mL Notes: (Same As: Ancef, Kefzol) MEDICATION WASTE Product Size: 1000 mg Product Wasted: ___ mg No Longer Active 08/21/2018 [facility] Isosorbide 30 mg, PO, QAM No Longer Active 08/07/2018 [facility] pantoprazole 40 mg, PO, PRN Active 08/07/[address] [facility] nter Metformin 1,000 mg, PO, BID No Longer Active 08/07/2018 [facility] Breo Ellipta 100 mcg-25 mcg inhalation powder 1 puff, INHALATION, Daily Active 08/07/2018 [facility] Sodium Chloride 0.9% IV 1,000 mL 1,000 mL, Rate: 25 ml/hr, Infuse over: 40 hr, Route: IV, Dosing Weight 99.205 kg, Total Volume: 1,000, Start date: 05/08/18 7:10:00 CDT, Duration: 1 day, Stop date: 05/09/18 7:09:00 CDT, 2.26, m2 Inactive 05/08/2018 [facility] clopidogrel 75 MG Oral Tablet [Plavix] 75 mg = 1 tab, PO, Daily, 0 Refill(s) Active 05/02/2018 [facility] metFORMIN 1000 mg oral tablet, extended release 1,000 mg = 1 tab, PO, Daily, # 30 tab, 0 Refill(s) Active 05/02/2018 [facility] Tamsulosin hydrochloride 0.4 MG Oral Capsule [Flomax] 0.4 mg = 1 cap, PO, Daily, 0 Refill(s) Active 05/02/2018 [facility] Rosuvastatin calcium 20 MG Oral Tablet [Crestor] 20 mg = 1 tab, PO, Bedtime, # 30 tab, 0 Refill(s) Active 05/02/2018 [facility] lisinopril 10 mg oral tablet 2 0 mg = 2 tab, PO, Daily, 0 Refill(s) Active 05/02/2018 [facility] sitagliptin 100 MG Oral Tablet [Januvia] 100 mg = 1 tab, PO, Daily, 0 Refill(s) Active 05/02/2018 [facility] Incruse Ellipta 62.5 mcg inhalation powder INHALATION, Q24H, 0 Refill(s) Active 05/02/2018 [facility] Glipizide 10 MG Oral Tablet [Glucotrol] 20 mg = 2 tab, PO, Daily, 0 Refill(s) Active 05/02/2018 [facility] carvedilol 25 MG Oral Tablet [Coreg] 50 mg = 2 tab, PO, Daily, 0 Refill(s) Active 05/02/2018 [facility] Unknown Home Medication Refill (s) 0 Active 05/02/2018 [facility] 120 ACTUAT Albuterol 0.1 MG/ACTUAT / Ipr atropium [place] 0.02 MG/ACTUAT Metered Dose Inhaler [Combivent 20/100] 1 puff, INHALATION, QID, 0 Refill(s) Active 05/02/2018 [facility] Breo Ellipta 200 mcg-25 mcg/inh inhalation powder 1 puff, INHALATION, Daily, 0 Refill(s) Active 05/02/2018 [facility] Aspirin 81 MG Enteric Coated Tablet 81 mg = 1 tab, PO, Daily, # 90 tab, 3 Refill(s) Active 05/02/2018 [facility] Allergies, Adverse Reactions, Alerts Substance Category Reaction Severity Reaction type Status Date Reported Comments Source No Known Medication Allergies Assertion Drug aller gy [facility] Immunizations Immunization Date Given Site Status Last Updated Comments Source influenza virus vaccine, inactivated 08/24/2018 Left deltoid completed Aldair Gomez [facility] Results Order Name Results Value Reference Range Date Interpretation Comments Source BLOOD BANK RESULTS ABO/Rh O POS 12/06/2019 [facility] BLOOD BANK RESULTS Antibody Scrn Negative (12/06/19 10:40 AM) 12/06/2019 [facility] CHEM PANEL Glucose Lvl 85 70 - 99 12/06/2019 [facility] CHEM PANEL BUN 11 7 - 22 12/06/2019 [facility] CHEM PANEL Creatinine Lvl 0.83 0.50 - 1.40 12/06/2019 [facility] CHEM PANEL Sodium Lvl 142 135 - 145 12/06/2019 [facility] CHEM PANEL Potassium Lvl 4.7 3.5 - 5.1 12/06/2019 [facility] CHEM PANEL Chloride Lvl 106 95 - 109 12/06/2019 [facility] CHEM PANEL CO2 32 24 - 32 12/06/2019 [facility] CHEM PANEL Calcium Lvl 8.9 8.5 - 10.5 12/06/2019 [facility] CHEM PANEL AGAP 8.7 10.0 - 20.0 12/06/2019 [facility] CHEM PANEL eGFR 88 12/06/2019 Result Comment: The eGFR is calculated using the [...] from the National Kidney Disease Education Program (NKDEP) which additionally recommends that when the eGFR is used in patients with extremes of body mass index for purposes of drug dosing, the eGFR should be multiplied by the estimated BMI. [facility] HEMATOLOGY Segs 65.5 45.0 - 75.0 12/06/2019 [facility] HEMATOLOGY Lymphocytes 22.8 20.0 - 40.0 12/06/2019 [facility] HEMATOLOGY Monocytes 9.4 2.0 - 12.0 12/06/2019 [facility] HEMATOLOGY Eosinophils 1.9 0.0 - 4.0 12/06/2019 [facility] HEMATOLOGY Basophils 0.4 0.0 - 1.0 12/06/2019 [facility] HEMATOLOGY Neutrophils # 4.8 1.5 - 8.1 12/06/2019 [facility] HEMATOLOGY Lymphocytes # 1.7 1.0 - 5.5 12/06/2019 [facility] HEMATOLOGY Monocytes # 0.7 0.0 - 0.8 12/06/2019 [facility] HEMATOLOGY Eosinophils # 0.1 0.0 - 0.5 12/06/2019 [facility] HEMATOLOGY WBC 7.4 3.7 - 10.4 12/06/2019 [facility] HEMATOLOGY RBC 4.70 4.70 - 6.10 12/06/2019 [facility] HEMATOLOGY Hgb 13.3 14.0 - 18.0 12/06/2019 [facility] HEMATOLOGY Hct 40.9 42.0 - 54.0 12/06/2019 [facility] HEMATOLOGY MCV 86.9 80.0 - 94.0 12/06/2019 [facility] HEMATOLOGY MCH 28.3 27.0 - 31.0 12/06/2019 [facility] HEMATOLOGY MCHC 32.6 32.0 - 36.0 12/06/2019 [facility] HEMATOLOGY RDW 15.7 11.5 - 14.5 12/06/2019 [facility] HEMATOLOGY Platelet 133 133 - 450 12/06/2019 [facility] HEMATOLOGY MPV 9.8 7.4 - 10.4 12/06/2019 [facility] HEMATOLOGY PT 13.4 12.0 - 14.7 12/06/2019 [facility] HEMATOLOGY INR 1.02 0.85 - 1.17 12/06/2019 [facility] HEMATOLOGY PTT 31.4 22.9 - 35.8 12/06/2019 [facility] SPECIAL CHEMISTRY Hgb A1C 7.4 <=5.6 % 12/06/2019 [facility] CHEM PANEL Glucose Lvl 128 70 - 99 09/12/2019 [facility] CHEM PANEL BUN 14 7 - 22 09/12/2019 [facility] CHEM PANEL Creatinine Lvl 0.78 0.50 - 1.40 09/12/2019 [facility] CHEM PANEL Sodium Lvl 143 135 - 145 09/12/2019 [facility] CHEM PANEL Potassium Lvl 4.7 3.5 - 5.1 09/12/2019 [facility] CHEM PANEL Chloride Lvl 108 95 - 109 09/12/2019 [facility] CHEM PANEL CO2 29 24 - 32 09/12/2019 [facility] CHEM PANEL Calcium Lvl 8.9 8.5 - 10.5 09/12/2019 [facility] CHEM PANEL eGFR 91 09/12/2019 Result Comment: The eGFR is calculated using the [...] from the National Kidney Disease Education Program (NKDEP) which additionally recommends that when the eGFR is used in patients with extremes of body mass index for purposes of drug dosing, the eGFR should be multiplied by the estimated BMI. [facility] CHEM PANEL AGAP 10.7 10.0 - 20.0 09/12/2019 [facility] HEMATOLOGY Hgb 13.3 14.0 - 18.0 09/12/2019 [facility] HEMATOLOGY Hct 40.9 42.0 - 54.0 09/12/2019 [facility] SPECIAL CHEMISTRY Hgb A1C 7.0 <=5.6 % 09/12/2019 [facility] CHEM PANEL POC Creatinine 0.7 0.5 - 1.4 08/24/2019 [facility] CHEM PANEL eGFR 95 08/24/2019 Result Comment: The eGFR is calculated using the [...] from the National Kidney Disease Education Program (NKDEP) which additionally recommends that when the eGFR is used in patients with extremes of body mass index for purposes of drug dosing, the eGFR should be multiplied by the estimated BMI. [facility] CHEM PANEL Glucose Lvl 235 70 - 99 07/03/2019 [facility] CHEM PANEL BUN 12 7 - 22 07/03/2019 [facility] CHEM PANEL Creatinine Lvl 0.89 0.50 - 1.40 07/03/2019 [facility] CHEM PANEL Sodium Lvl 144 135 - 145 07/03/2019 [facility] CHEM PANEL Potassium Lvl 4.6 3.5 - 5.1 07/03/2019 [facility] CHEM PANEL Chloride Lvl 107 95 - 109 07/03/2019 [facility] CHEM PANEL CO2 30 24 - 32 07/03/2019 [facility] CHEM PANEL Calcium Lvl 9.3 8.5 - 10.5 07/03/2019 [facility] CHEM PANEL eGFR 86 07/03/2019 Result Comment: The eGFR is calculated using the [...] from the National Kidney Disease Education Program (NKDEP) which additionally recommends that when the eGFR is used in patients with extremes of body mass index for purposes of drug dosing, the eGFR should be multiplied by the estimated BMI. [facility] CHEM PANEL AGAP 11.6 10.0 - 20.0 07/03/2019 [facility] HEMATOLOGY Hgb 12.6 14.0 - 18.0 07/03/2019 [facility] HEMATOLOGY Hct 37.9 42.0 - 54.0 07/03/2019 [facility] CHEM PANEL Magnesium Lvl 1.7 1.8 - 2.4 10/11/2018 [facility] CHEM PANEL eGFR 88 10/11/2018 Result Comment: The eGFR is calculated using the [...] from the National Kidney Disease Education Program (NKDEP) which additionally recommends that when the eGFR is used in patients with extremes of body mass index for purposes of drug dosing, the eGFR should be multiplied by the estimated BMI. [facility] CHEM PANEL Chloride Lvl 104 95 - 109 10/11/2018 [facility] CHEM PANEL Potassium Lvl 3.9 3.5 - 5.1 10/11/2018 [facility] CHEM PANEL AGAP 12.9 10.0 - 20.0 10/11/2018 [facility] CHEM PANEL BUN 12 7 - 22 10/11/2018 [facility] CHEM PANEL Sodium Lvl 140 135 - 145 10/11/2018 [facility] CHEM PANEL Creatinine Lvl 0.85 0.50 - 1.40 10/11/2018 [facility] CHEM PANEL Glucose Lvl 191 70 - 99 10/11/2018 [facility] CHEM PANEL Calcium Lvl 8.8 8.5 - 10.5 10/11/2018 [facility] CHEM PANEL CO2 27 24 - 32 10/11/2018 [facility] CHEM PANEL Phosphorus 3.9 2.5 - 4.5 10/11/2018 [facility] HEMATOLOGY Platelet 150 133 - 450 10/11/2018 [facility] HEMATOLOGY MPV 10.5 7.4 - 10.4 10/11/2018 [facility] HEMATOLOGY WBC 9.0 3.7 - 10.4 10/11/2018 [facility] HEMATOLOGY Hgb 11.6 14.0 - 18.0 10/11/2018 [facility] HEMATOLOGY RBC 4.21 4.70 - 6.10 10/11/2018 [facility] HEMATOLOGY Hct 35.1 42.0 - 54.0 10/11/2018 [facility] HEMATOLOGY MCH 27.6 27.0 - 31.0 10/11/2018 [facility] HEMATOLOGY MCV 83.3 80.0 - 94.0 10/11/2018 [facility] HEMATOLOGY RDW 15.9 11.5 - 14.5 10/11/2018 [facility] HEMATOLOGY MCHC 33.1 32.0 - 36.0 10/11/2018 [facility] HEMATOLOGY Lymphocytes 11.5 20.0 - 40.0 10/11/2018 [facility] HEMATOLOGY Lymphocytes # 1.0 1.0 - 5.5 10/11/2018 [facility] HEMATOLOGY Monocytes 9.4 2.0 - 12.0 10/11/2018 [facility] HEMATOLOGY Eosinophils 2.3 0.0 - 4.0 10/11/2018 [facility] HEMATOLOGY Segs 76.3 45.0 - 75.0 10/11/2018 [facility] HEMATOLOGY Monocytes # 0.9 0.0 - 0.8 10/11/2018 [facility] HEMATOLOGY Eosinophils # 0.2 0.0 - 0.5 10/11/2018 [facility] HEMATOLOGY Neutrophils # 6.9 1.5 - 8.1 10/11/2018 [facility] HEMATOLOGY Basophils 0.5 0.0 - 1.0 10/11/2018 [facility] PARATHYROID PROFILE Ca Ion WB 1.15 1.05 - 1.25 10/11/2018 [facility] PARATHYROID PROFILE Ca Norm WB 1.12 1.05 - 1.25 10/11/2018 [facility] HEMATOLOGY POC Activated Clotting Ti me 142 10/11/2018 [facility] CARDIAC ENZYMES Troponin-I 0.16 0.00 - 0.40 10/11/2018 [facility] CHEM PANEL Magnesium Lvl 1.9 1.8 - 2.4 10/11/2018 [facility] CHEM PANEL Phosphorus 3.9 2.5 - 4.5 10/11/2018 [facility] CHEM PANEL A/G Ratio 1.0 0.7 - 1.6 10/11/2018 [facility] CHEM PANEL Globulin 3.4 2.7 - 4.2 10/11/2018 [facility] CHEM PANEL AGAP 11.6 10.0 - 20.0 10/11/2018 [facility] CHEM PANEL B/C Ratio 13 6 - 25 10/11/2018 [facility] CHEM PANEL ALT 18 0 - 65 10/11/2018 [facility] CHEM PANEL AST 16 0 - 37 10/11/2018 [facility] CHEM PANEL Albumin Lvl 3.3 3.5 - 5.0 10/11/2018 [facility] CHEM PANEL Alk Phos 56 39 - 136 10/11/2018 [facility] CHEM PANEL Total Protein 6.7 6.4 - 8.4 10/11/2018 [facility] CHEM PANEL Bili Total 0.4 0.2 - 1.3 10/11/2018 [facility] CHEM PANEL eGFR 93 10/11/2018 Result Comment: The eGFR is calculated using the [...] from the National Kidney Disease Education Program (NKDEP) which additionally recommends that when the eGFR is used in patients with extremes of body mass index for purposes of drug dosing, the eGFR should be multiplied by the estimated BMI. [facility] CHEM PANEL CO2 30 24 - 32 10/11/2018 [facility] CHEM PANEL Sodium Lvl 142 135 - 145 10/11/2018 [facility] CHEM PANEL Potassium Lvl 3.6 3.5 - 5.1 10/11/2018 [facility] CHEM PANEL Glucose Lvl 101 70 - 99 10/11/2018 [facility] CHEM PANEL BUN 10 7 - 22 10/11/2018 [facility] CHEM PANEL Creatinine Lvl 0.75 0.50 - 1.40 10/11/2018 [facility] CHEM PANEL Calcium Lvl 8.7 8.5 - 10.5 10/11/2018 [facility] CHEM PANEL Chloride Lvl 104 95 - 109 10/11/2018 [facility] HEMATOLOGY INR 1.27 0.85 - 1.17 10/11/2018 [facility] HEMATOLOGY PT 15.6 12.0 - 14.7 10/11/2018 [facility] HEMATOLOGY PTT >200 seconds 22.9 - 35.8 10/11/2018 Result Comment: Critical Result(s) brown d to Laure Jin at 10/10/2018 21:06 by KW. Read back OK. [facility] HEMATOLOGY Hct 37.7 42.0 - 54.0 10/11/2018 [facility] HEMATOLOGY Hgb 12.1 14.0 - 18.0 10/11/2018 [facility] HEMATOLOGY MPV 10.7 7.4 - 10.4 10/11/2018 [facility] HEMATOLOGY RDW 16.5 11.5 - 14.5 10/11/2018 [facility] HEMATOLOGY Platelet 154 133 - 450 10/11/2018 [facility] HEMATOLOGY MCV 83.8 80.0 - 94.0 10/11/2018 [facility] HEMATOLOGY MCH 26.9 27.0 - 31.0 10/11/2018 [facility] HEMATOLOGY MCHC 32.0 32.0 - 36.0 10/11/2018 [facility] HEMATOLOGY WBC 8.6 3.7 - 10.4 10/11/2018 [facility] HEMATOLOGY RBC 4.50 4.70 - 6.10 10/11/2018 [facility] HEMATOLOGY Monocytes 6.2 2.0 - 12.0 10/11/2018 [facility] HEMATOLOGY Monocytes # 0.5 0.0 - 0.8 10/11/2018 [facility] HEMATOLOGY Eosinophils # 0.3 0.0 - 0.5 10/11/2018 [facility] HEMATOLOGY Lymphocytes # 2.6 1.0 - 5.5 10/11/2018 [facility] HEMATOLOGY Eosinophils 3.9 0.0 - 4.0 10/11/2018 [facility] HEMATOLOGY Neutrophils # 5.1 1.5 - 8.1 10/11/2018 [facility] HEMATOLOGY Basophils 0.5 0.0 - 1.0 10/11/2018 [facility] HEMATOLOGY Segs 59.3 45.0 - 75.0 10/11/2018 [facility] HEMATOLOGY Lymphocytes 30.1 20.0 - 40.0 10/11/2018 [facility] PARATHYROID PROFILE Ca Norm WB 1.06 1.05 - 1.25 10/11/2018 [facility] PARATHYROID PROFILE Ca Ion WB 1.12 1.05 - 1.25 10/11/2018 [facility] HEMATOLOGY POC Activated Clotting Ti me 196 10/10/2018 [facility] HEMATOLOGY POC Activated Clotting Ti me 247 10/10/2018 [facility] BLOOD BANK RESULTS ABO/Rh O POS 10/10/2018 [facility] BLOOD BANK RESULTS Antibody Scrn Negative (10/10/18 10:22 AM) 10/10/2018 [facility] CHEM PANEL Magnesium Lvl 1.5 1.8 - 2.4 10/10/2018 [facility] CHEM PANEL Phosphorus 3.5 2.5 - 4.5 10/10/2018 [facility] ELECTROLYTES AGAP 10.8 10.0 - 20.0 10/10/2018 [facility] ELECTROLYTES eGFR 90 10/10/2018 Result Comment: The eGFR is calculated using the [...] from the National Kidney Disease Education Program (NKDEP) which additionally recommends that when the eGFR is used in patients with extremes of body mass index for purposes of drug dosing, the eGFR should be multiplied by the estimated BMI. [facility] ELECTROLYTES CO2 30 24 - 32 10/10/2018 [facility] ELECTROLYTES Calcium Lvl 8.8 8.5 - 10.5 10/10/2018 [facility] ELECTROLYTES BUN 10 7 - 22 10/10/2018 [facility] ELECTROLYTES Sodium Lvl 142 135 - 145 10/10/2018 [facility] ELECTROLYTES Creatinine Lvl 0.8 2 0.50 - 1.40 10/10/2018 [facility] ELECTROLYTES Chloride Lvl 105 95 - 109 10/10/2018 [facility] ELECTROLYTES Potassium Lvl 3.8 3.5 - 5.1 10/10/2018 [facility] ELECTROLYTES Glucose Lvl 142 70 - 99 10/10/2018 [facility] HEMATOLOGY MPV 10.4 7.4 - 10.4 10/10/2018 [facility] HEMATOLOGY RDW 16.0 11.5 - 14.5 10/10/2018 [facility] HEMATOLOGY Platelet 169 133 - 450 10/10/2018 [facility] HEMATOLOGY WBC 7.0 3.7 - 10.4 10/10/2018 [facility] HEMATOLOGY RBC 4.64 4.70 - 6.10 10/10/2018 [facility] HEMATOLOGY MCHC 32.6 32.0 - 36.0 10/10/2018 [facility] HEMATOLOGY Hct 38.6 42.0 - 54.0 10/10/2018 [facility] HEMATOLOGY MCH 27.1 27.0 - 31.0 10/10/2018 [facility] HEMATOLOGY MCV 83.3 80.0 - 94.0 10/10/2018 [facility] HEMATOLOGY Hgb 12.6 14.0 - 18.0 10/10/2018 [facility] HEMATOLOGY INR 1.06 0.85 - 1.17 10/10/2018 [facility] HEMATOLOGY PT 13.6 12.0 - 14.7 10/10/2018 [facility] HEMATOLOGY PTT 30.3 22.9 - 35.8 10/10/2018 [facility] HEMATOLOGY Eosinophils # 0.3 0.0 - 0.5 10/10/2018 [facility] HEMATOLOGY Segs 60.0 45.0 - 75.0 10/10/2018 [facility] HEMATOLOGY Lymphocytes 26.2 20.0 - 40.0 10/10/2018 [facility] HEMATOLOGY Monocytes 8.3 2.0 - 12.0 10/10/2018 [facility] HEMATOLOGY Lymphocytes # 1.8 1.0 - 5.5 10/10/2018 [facility] HEMATOLOGY Monocytes # 0.6 0.0 - 0.8 10/10/2018 [facility] HEMATOLOGY Neutrophils # 4.2 1.5 - 8.1 10/10/2018 [facility] HEMATOLOGY Basophils 0.6 0.0 - 1.0 10/10/2018 [facility] HEMATOLOGY Eosinophils 4.9 0.0 - 4.0 10/10/2018 [facility] SPECIAL CHEMISTRY Hgb A1C 6.7 <=5.6 % 09/25/2018 [facility] ELECTROLYTES AGAP 12.8 10.0 - 20.0 09/25/2018 [facility] ELECTROLYTES eGFR 91 09/25/2018 Result Comment: The eGFR is calculated using the [...] from the National Kidney Disease Education Program (NKDEP) which additionally recommends that when the eGFR is used in patients with extremes of body mass index for purposes of drug dosing, the eGFR should be multiplied by the estimated BMI. [facility] ELECTROLYTES Calcium Lvl 8.4 8.5 - 10.5 09/25/2018 [facility] ELECTROLYTES CO2 29 24 - 32 09/25/2018 [facility] ELECTROLYTES Potassium Lvl 3.8 3.5 - 5.1 09/25/2018 [facility] ELECTROLYTES Chloride Lvl 103 95 - 109 09/25/2018 [facility] ELECTROLYTES Creatinine Lvl 0.7 9 0.50 - 1.40 09/25/2018 [facility] ELECTROLYTES BUN 11 7 - 22 09/25/2018 [facility] ELECTROLYTES Sodium Lvl 141 135 - 145 09/25/2018 [facility] ELECTROLYTES Glucose Lvl 99 70 - 99 09/25/2018 [facility] HEMATOLOGY Hgb 12.6 14.0 - 18.0 09/25/2018 [facility] HEMATOLOGY Hct 38.5 42.0 - 54.0 09/25/2018 [facility] CHEM PANEL Calcium Lvl 8.4 8.5 - 10.5 08/23/2018 [facility] CHEM PANEL CO2 30 24 - 32 08/23/2018 [facility] CHEM PANEL Sodium Lvl 140 135 - 145 08/23/2018 [facility] CHEM PANEL Potassium Lvl 4.1 3.5 - 5.1 08/23/2018 [facility] CHEM PANEL Chloride Lvl 105 95 - 109 08/23/2018 [facility] CHEM PANEL eGFR 91 08/23/2018 Result Comment: The eGFR is calculated using the [...] from the National Kidney Disease Education Program (NKDEP) which additionally recommends that when the eGFR is used in patients with extremes of body mass index for purposes of drug dosing, the eGFR should be multiplied by the estimated BMI. [facility] CHEM PANEL BUN 10 7 - 22 08/23/2018 [facility] CHEM PANEL Creatinine Lvl 0.78 0.50 - 1.40 08/23/2018 [facility] CHEM PANEL Glucose Lvl 115 70 - 99 08/23/2018 [facility] CHEM PANEL AGAP 9.1 10.0 - 20.0 08/23/2018 [facility] HEMATOLOGY Hct 35.0 42.0 - 54.0 08/23/2018 [facility] HEMATOLOGY Hgb 11.4 14.0 - 18.0 08/23/2018 [facility] ELECTROLYTES AGAP 11.3 10.0 - 20.0 08/22/2018 [facility] ELECTROLYTES Calcium Lvl 8.6 8.5 - 10.5 08/22/2018 [facility] ELECTROLYTES eGFR 97 08/22/2018 Result Comment: The eGFR is calculated using the [...] from the National Kidney Disease Education Program (NKDEP) which additionally recommends that when the eGFR is used in patients with extremes of body mass index for purposes of drug dosing, the eGFR should be multiplied by the estimated BMI. [facility] ELECTROLYTES Glucose Lvl 159 70 - 99 08/22/2018 [facility] ELECTROLYTES BUN 8 7 - 22 08/22/2018 [facility] ELECTROLYTES Sodium Lvl 141 135 - 145 08/22/2018 [facility] ELECTROLYTES Potassium Lvl 4.3 3.5 - 5.1 08/22/2018 [facility] ELECTROLYTES Chloride Lvl 105 95 - 109 08/22/2018 [facility] ELECTROLYTES Creatinine Lvl 0.6 8 0.50 - 1.40 08/22/2018 [facility] ELECTROLYTES CO2 29 24 - 32 08/22/2018 [facility] HEMATOLOGY Hct 35.9 42.0 - 54.0 08/22/2018 [facility] HEMATOLOGY Hgb 11.7 14.0 - 18.0 08/22/2018 [facility] BLOOD BANK RESULTS ABO/Rh O POS 08/21/2018 [facility] BLOOD BANK RESULTS Antibody Scrn Negative (08/21/18 11:57 AM) 08/21/2018 [facility] CHEM PANEL eGFR 79 08/07/2018 Result Comment: The eGFR is calculated using the [...] from the National Kidney Disease Education Program (NKDEP) which additionally recommends that when the eGFR is used in patients with extremes of body mass index for purposes of drug dosing, the eGFR should be multiplied by the estimated BMI. [facility] CHEM PANEL Chloride Lvl 102 95 - 109 08/07/2018 [facility] CHEM PANEL Sodium Lvl 139 135 - 145 08/07/2018 [facility] CHEM PANEL Potassium Lvl 4.4 3.5 - 5.1 08/07/2018 [facility] CHEM PANEL Creatinine Lvl 0.76 0.50 - 1.40 08/07/2018 [facility] CHEM PANEL BUN 12 7 - 22 08/07/2018 [facility] CHEM PANEL Glucose Lvl 162 70 - 99 08/07/2018 [facility] CHEM PANEL Calcium Lvl 8.5 8.5 - 10.5 08/07/2018 [facility] CHEM PANEL CO2 26 24 - 32 08/07/2018 [facility] CHEM PANEL AGAP 15.4 10.0 - 20.0 08/07/2018 [facility] HEMATOLOGY TEG Data See N ote (08/07/18 12:05 PM) 08/07/2018 [facility] HEMATOLOGY G-value 11.9 4.5 - 11.0 08/07/2018 [facility] HEMATOLOGY Max Amp 70.4 50.0 - 70.0 08/07/2018 [facility] HEMATOLOGY R-time 5.3 5.0 - 10.0 08/07/2018 [facility] HEMATOLOGY Coag Index 2.2 -3.0-3.0 - 3.0 08/07/2018 [facility] HEMATOLOGY Ly30 2.0 0.0 - 7.5 08/07/2018 [facility] HEMATOLOGY Angle 70.7 53.0 - 72.0 08/07/2018 [facility] HEMATOLOGY K-time 1.3 1.0 - 3.0 08/07/2018 [facility] HEMATOLOGY Monocytes # 0.8 0.0 - 0.8 08/07/2018 [facility] HEMATOLOGY Basophils # 0.1 0.0 - 0.2 08/07/2018 [facility] HEMATOLOGY Eosinophils # 0.7 0.0 - 0.5 08/07/2018 [facility] HEMATOLOGY Lymphocytes # 1.8 1.0 - 5.5 08/07/2018 [facility] HEMATOLOGY Neutrophils # 6.5 1.5 - 8.1 08/07/2018 [facility] HEMATOLOGY Basophils 0.7 0.0 - 1.0 08/07/2018 [facility] HEMATOLOGY Lymphocytes 18.3 20.0 - 40.0 08/07/2018 [facility] HEMATOLOGY Monocytes 8.4 2.0 - 12.0 08/07/2018 [facility] HEMATOLOGY Eosinophils 7.0 0.0 - 4.0 08/07/2018 [facility] HEMATOLOGY Segs 65.6 45.0 - 75.0 08/07/2018 [facility] HEMATOLOGY MCH 27.3 27.0 - 31.0 08/07/2018 [facility] HEMATOLOGY MPV 10.5 7.4 - 10.4 08/07/2018 [facility] HEMATOLOGY Platelet 167 133 - 450 08/07/2018 [facility] HEMATOLOGY MCV 84.3 80.0 - 94.0 08/07/2018 Result Comment: Reference range changed due to change in patient's sex at 11:11:13. Normal High changed from 98.0 to 94.0. Result flag not changed. [facility] HEMATOLOGY Hct 35.6 42.0 - 54.0 08/07/2018 Result Comment: Reference range changed due to change in patient's sex at 11:11:13. Normal Low changed from 36.0 to 42.0. Normal High changed from 48.0 to 54.0. Result flag not changed. [facility] HEMATOLOGY MCHC 32.4 32.0 - 36.0 08/07/2018 [facility] HEMATOLOGY RDW 15.6 11.5 - 14.5 08/07/2018 [facility] HEMATOLOGY RBC 4.23 4.70 - 6.10 08/07/2018 Result Comment: Reference range changed due to change in patient's sex at 11:11:13. Normal Low changed from 4.20 to 4.70. Normal High changed from 5.40 to 6.10. Result flag changed from within range to L. [facility] HEMATOLOGY Hgb 11.5 14.0 - 18.0 08/07/2018 Result Comment: Reference range changed due to change in patient's sex at 11:11:13. Normal Low changed from 12.0 to 14.0. Normal High changed from 16.0 to 18.0. Result flag not changed. [facility] HEMATOLOGY WBC 10.0 3.7 - 10.4 08/07/2018 [facility] SPECIAL CHEMISTRY Hgb A1C 7.4 <=5.6 % 08/07/2018 [facility] CHEM PANEL eGFR 39 05/02/2018 Result Comment: The eGFR is calculated using the [...] from the National Kidney Disease Education Program (NKDEP) which additionally recommends that when the eGFR is used in patients with extremes of body mass index for purposes of drug dosing, the eGFR should be multiplied by the estimated BMI. [facility] CHEM PANEL BUN 20 7 - 22 05/02/2018 [facility] CHEM PANEL AGAP 14.6 10.0 - 20.0 05/02/2018 [facility] CHEM PANEL Calcium Lvl 8.8 8.5 - 10.5 05/02/2018 [facility] CHEM PANEL Potassium Lvl 4.6 3.5 - 5.1 05/02/2018 [facility] CHEM PANEL Sodium Lvl 142 135 - 145 05/02/2018 [facility] CHEM PANEL Creatinine Lvl 1.39 0.50 - 1.40 05/02/2018 [facility] CHEM PANEL CO2 29 24 - 32 05/02/2018 [facility] CHEM PANEL Chloride Lvl 103 95 - 109 05/02/2018 [facility] CHEM PANEL Glucose Lvl 268 70 - 99 05/02/2018 [facility] Pathology Reports No Data Provided for This Section Diagnostic Reports Report Value Date Source Chest 2 views DX PROCEDURE INF ORMATION: Exam: XR Chest, 2 Views Exam date and time: 12/06/2019 10:53 AM Age: 69 years old Clinical indication: Pre-operative exam; Cardiovascular screening and respiratory screening exam; Additional info: Coughing/preoperative TECHNIQUE: Imaging protocol: XR of the chest Views: 2 views. COMPARISON: CHEST 1V FOR PLACEMENT DX 09/27/2018 4:09 PM Findings: No pleural effusion or focal consolidation. No pneumothorax. Prior median sternotomy. Interval removal of right chest wall [id number]. Postoperative changes of the lower cervical spine. Impression: 1. No acute cardiopulmonary process. 2. Interval removal of right IJ central venous catheter. Kobe Montoya MD On 12/06/2019 12:57:55; [id number] 12/06/2019 [facility] Internal Auditory Canal w contrast CT Radiation Dose CTDIVOL = 0 (mGy): DLP = 381 (mGy-cm) PROCEDURE INFORMATION: Exam: CT Temporal Bones With Contrast. Exam date and time: 08/24/2019 8:00 AM Clinical history: 69 years old, male; Unspecified disorder of ear, unspecified ear; Additional info: /ear lesion TECHNIQUE: Imaging protocol: Computed tomography images of the temporal bones with intravenous contrast. Total DLP: 381 mGy-cm Radiation optimization: All CT scans at this facility use at least one of these dose optimization techniques: automated exposure control; mA and/or kV adjustment per patient size (includes targeted exams where dose is matched to clinical indication); or iterative reconstruction. Contrast material: OMNI; Contrast volume: 100 ml; Contrast route: IV; COMPARISON: No relevant prior studies available. FINDINGS: Right ossicles and middle ear: Normal. Right inner ear: Normal. Right facial nerve canal: Normal. Right internal auditory canal: Normal. Right external auditory canal: Normal. Right carotid canal: Normal. Right mastoid air cells: Normal. No mastoid effusions. Right temporomandibular joint: Normal. Left ossicles and middle ear: There is mild thickening of the left tympanic membrane. Ossicles are intact. No fluid collection or soft tissue mass is noted. No bony destruction. Left inner ear: Normal. Left facial nerve canal: Normal. Left internal auditory canal: Normal. Left external auditory canal: There is mild wall thickening of the left external auditory canal. Left carotid canal: Normal. Left mastoid air cells: Normal. No mastoid effusions. Left temporomandibular joint: Normal. Bones/joints: There are mild degenerative changes in both temporomandibular joints. No acute fracture. Other findings: Moderate distal internal carotid arterial calcifications are present. IMPRESSION: 1. No abnormality involving bilateral te mporal bones. 2. Degenerative changes in both temporom andibular joints. 3. Thickening of left tympanic membrane. This may represent scarring. 4. Wall thickening of the left external auditory canal suggestive of scarring or debris. 5. Moderate distal internal carotid lissy rial calcifications. Philip Dixon MD On 08/24/2019 18:05:55; [id number] 08/24/2019 [facility] Biopsy abdominal mass VR PROCE RADHAE: CT guided biopsy of mesenteric lymph node INDICATION: - ABD MASS. COMPARISON: PET/CT 05/24/2019 TECHNICAL: . CT imaging performed at this location utilizes radiation dose optimization techniques which include one or more of the following: -Automated exposure control -Adjustment of the mA and/or kV accordin g to patient size -Use of iterative reconstruction technStudent Loan Hero ue CT Radiation Dose: DLP = 1882 mGy-cm MODERATE SEDATION: I supervised moderate sedation during this procedure. The patient was monitored by nurse using automated blood pressure, EKG and pulse oximetry. The moderate sedation record is permanently stored in the hospital information system. The personal supervised moderate sedation time was 21 minutes. Medications administered: 1 mg of IV Versed and 100 micrograms of IV Fentanyl. PROCEDURE: Imaging was used to evaluate potential biopsy site. Preliminary imaging demonstrates 15 mm upper abdominal mesenteric lymph node, anterior to the proximal portal vein, correlating with that lesion noted on recent PET scan. The procedure, risks, benefits and alternatives were discussed. Informed consent was obtained. Timeout was performed prior to the procedure. The overlying skin was sterilely prepped and draped. 1% lidocaine was used for local anesthesia. Using imaging guidance, a guide needle was advanced into the upper abdominal lymph node. . Biopsy was performed. Images were obtained to document needle positions for permanent recording and reporting. The samples were immediately submitted to pathology department. There were no evident complications and the patient had no complaints. Pressure was applied at the puncture site with adequate hemostasis. Final pathology results are pending. FINDINGS: Guide needle description: 19-gauge Biopsy needle description: 20-gauge Number of biopsies obtained: 4 (specimen was also sent in RPMI for flow cytometry if deemed necessary) IMPRESSION: 1. Technically successful image guided biopsy of mesenteric lymph node. 06/08/2019 [facility] Chest 1 v for Placement DX Pat ient Name: ESDRAS WOMACK : 1950. Age: 68 years. Gender: Male. MR: [id number]. Location: [facility]. Provider: Yocasta Ndiaye MD. EXAM: Chest 1 v for Placement DX, ordered 09/27/2018 3:47 PM [employer] PROVIDED CLINICAL HISTORY: Line Placement - Chest 1 view for line placement TECHNIQUE: Single frontal view. COMPARISON: Chest X-Ray performed - 08/21/2018. FINDINGS: SUPPORT DEVICES: -- Interval removal of the right inte rnal jugular central line. -- Right chest wall implanted port wi th the catheter tip superior cavoatrial junction. LUNGS / PLEURAL SPACES: Interstitial coarsening, attributable to chronic age- related changes. No significant central pulmonary interstitial edema. No definite focal airspace consolidation. No pleural effusion. No appreciable pneumothorax. Please note that a small anterior pneumothorax can be underestimated on a frontal radiograph. Limited plain-film sensitivity / specificity for subtle lung nodules. HEART / MEDIASTINUM: Thoracotomy. Heart size is upper-normal or borderline enlarged, likely exaggerated by AP projection magnification artifact. Unremarkable hilar / mediastinal contours. BONES / SOFT TISSUES: No acute fracture. Skeletal degenerative changes, extent expected for age. No significant soft tissue abnormality. Lower cervical fusion hardware, partly imaged. IMPRESSION: Central line positioning as above. No appreciable pneumothorax. SL: ELY 09/27/2018 [facility] Chest 1 v for Placement DX EXA M: XR CHEST AP 1 VIEW DATE: 08/21/2018 3:19 PM CDT INDICATION: Line Placement - Chest 1 view for line placement COMPARISON: None TECHNIQUE: Chest AP -- 1 View FINDINGS: Right IJ central catheter tip at mid SVC. Cardiac silhouette size is normal. Mild prominence of the central pulmonary vasculature is identified. Mediastinal and hilar contours are normal. Interstitial and septal thickening present in the mid-lower lung zones. Mild bibasilar subsegmental atelectasis greater on the left noted. Possible faint patchy airspace opacities in the left lower lung zone noted. No pleural effusion or pneumothorax identified. Skeletal structures demonstrate no acute findings. Sternotomy wires present. Lower cervical spine discectomy and fusion hardware noted. IMPRESSION: Mild interstitial pulmonary edema with possible alveolar edema in the left lower lung zone. Superimposed infection not excluded. Mild bibasilar subsegmental atelectasis. Satisfactory placement of right IJ central catheter tip at mid SVC. 08/21/2018 [facility] Consultation Notes No Data Provided for This Section Discharge Summaries No Data Provided for This Section History and Physicals No Data Provided for This Section Vital Signs Vital Sign Value Date Comments Source Systolic (mm Hg) 113 12/13/2019 [facility] Diastolic (mm Hg) 48 12/13/2019 [facility] Respitory Rate 18 12/13/2019 [facility] Systolic (mm Hg) 111 12/13/2019 [facility] Diastolic (mm Hg) 44 12/13/2019 [facility] Systolic (mm Hg) 104 12/13/2019 [facility] Diastolic (mm Hg) 49 12/13/2019 [facility] Respitory Rate 15 12/13/2019 [facility] Respitory Rate 16 12/13/2019 [facility] Temperature Oral (F) 97.7 F 12/06/2019 [facility] Heart Rate 56 12/06/2019 [facility] Height 182.88 cm 12/06/2019 [facility] Weight 93.21 12/06/2019 [facility] BMI Calculated 27.87 12/06/2019 [facility] Respitory Rate 16 09/17/2019 [facility] Systolic (mm Hg) 99 09/17/2019 [facility] Diastolic (mm Hg) 49 09/17/2019 [facility] Respitory Rate 16 09/17/2019 [facility] Systolic (mm Hg) 110 09/17/2019 [facility] Diastolic (mm Hg) 47 09/17/2019 [facility] Respitory Rate 16 09/17/2019 [facility] Systolic (mm Hg) 116 09/17/2019 [facility] Diastolic (mm Hg) 55 09/17/2019 [facility] Temperature Oral (F) 97.8 F 09/12/2019 [facility] Heart Rate 64 09/12/2019 [facility] Height 182.88 cm 09/12/2019 [facility] Weight 93.182 09/12/2019 [facility] BMI Calculated 27.86 09/12/2019 [facility] Respitory Rate 15 07/11/2019 [facility] Systolic (mm Hg) 147 07/11/2019 [facility] Diastolic (mm Hg) 80 07/11/2019 [facility] Respitory Rate 14 07/11/2019 [facility] Systolic (mm Hg) 137 07/11/2019 [facility] Diastolic (mm Hg) 65 07/11/2019 [facility] Respitory Rate 16 07/11/2019 [facility] Systolic (mm Hg) 105 07/11/2019 [facility] Diastolic (mm Hg) 46 07/11/2019 [facility] Temperature Oral (F) 97.9 F 07/03/2019 [facility] Heart Rate 68 07/03/2019 [facility] Height 182.88 cm 07/03/2019 [facility] Weight 90.909 07/03/2019 [facility] BMI Calculated 27.18 07/03/2019 [facility] BMI Calculated 27.59 06/08/2019 [facility] Weight 92.273 06/08/2019 [facility] Height 182.88 cm 06/08/2019 [facility] Systolic (mm Hg) 161 10/11/2018 [facility] Diastolic (mm Hg) 67 10/11/2018 [facility] Respitory Rate 35 10/11/2018 [facility] Systolic (mm Hg) 147 10/11/2018 [facility] Diastolic (mm Hg) 65 10/11/2018 [facility] Respitory Rate 20 10/11/2018 [facility] Respitory Rate 27 10/11/2018 [facility] Temperature Oral (F) 97.2 F 10/11/2018 [facility] Systolic (mm Hg) 133 10/11/2018 [facility] Diastolic (mm Hg) 63 10/11/2018 [facility] Temperature Oral (F) 97 F 10/11/2018 [facility] BMI Calculated 28.27 10/10/2018 [facility] Weight 94.545 10/10/2018 [facility] Height 182.88 cm 10/10/2018 [facility] Respitory Rate 12 09/27/2018 [facility] Systolic (mm Hg) 143 09/27/2018 [facility] Diastolic (mm Hg) 59 09/27/2018 [facility] Respitory Rate 11 09/27/2018 [facility] Systolic (mm Hg) 148 09/27/2018 [facility] Diastolic (mm Hg) 65 09/27/2018 [facility] Systolic (mm Hg) 144 09/27/2018 [facility] Diastolic (mm Hg) 58 09/27/2018 [facility] Respitory Rate 16 09/27/2018 [facility] Weight 98.778 09/25/2018 [facility] BMI Calculated 29.53 09/25/2018 [facility] Height 182.88 cm 09/25/2018 [facility] Temperature Oral (F) 97.6 F 09/25/2018 [facility] Heart Rate 68 09/25/2018 [facility] Respitory Rate 18 08/24/2018 [facility] Heart Rate 58 08/24/2018 [facility] Temperature Oral (F) 98.5 F 08/24/2018 [facility] Systolic (mm Hg) 157 08/24/2018 [facility] Diastolic (mm Hg) 61 08/24/2018 [facility] Heart Rate 75 08/24/2018 [facility] Respitory Rate 18 08/24/2018 [facility] Systolic (mm Hg) 153 08/24/2018 [facility] Diastolic (mm Hg) 65 08/24/2018 [facility] Temperature Oral (F) 98.0 F 08/24/2018 [facility] Respitory Rate 18 08/24/2018 [facility] Heart Rate 57 08/24/2018 [facility] Temperature Oral (F) 97.7 F 08/24/2018 [facility] Systolic (mm Hg) 160 08/24/2018 [facility] Diastolic (mm Hg) 66 08/24/2018 [facility] Height 182.8 cm 08/22/2018 [facility] Weight 99.3 08/22/2018 [facility] BMI Calculated 29.72 08/22/2018 [facility] BMI Calculated 29.76 08/21/2018 [facility] Weight 99.545 08/21/2018 [facility] Height 182.88 cm 08/21/2018 [facility] BMI Calculated 30.2 08/07/2018 [facility] Weight 101.004 08/07/2018 [facility] Height 182.88 cm 08/07/2018 [facility] Systolic (mm Hg) 113 05/08/2018 [facility] Diastolic (mm Hg) 52 05/08/2018 [facility] Respitory Rate 14 05/08/2018 [facility] Respitory Rate 17 05/08/2018 [facility] Systolic (mm Hg) 101 05/08/2018 [facility] Diastolic (mm Hg) 48 05/08/2018 [facility] Systolic (mm Hg) 85 05/08/2018 [facility] Diastolic (mm Hg) 53 05/08/2018 [facility] Respitory Rate 15 05/08/2018 [facility] BMI Calculated 29.66 05/02/2018 [facility] Weight 99.205 05/02/2018 [facility] Height 182.88 cm 05/02/2018 [facility] Heart Rate 72 05/02/2018 [facility] Temperature Oral (F) 98.1 F 05/02/2018 [facility] Encounters Location Location Details Encounter Type Encounter Number Reason For Visit Attending Provider ADM Date DC Date Status Source [facility] Bedded Outpatient [id number] Yocasta Ndiaye 05/08/2018 05/08/2018 [facility] Bedded Outpatient [id number] Ish Cortes 07/05/2018 07/05/2018 [facility] Inpatient [id number] Yocasta Ndiaye 08/21/2018 08/25/2018 [facility] Day Surgery [id number] Yocasta Ndiaye 09/27/2018 09/27/2018 [facility] Inpatient [id number] Nicho Saldivar 10/11/2018 10/11/2018 [facility] Outpatient [id number] Sarah Villela 06/08/2019 06/09/2019 [facility] Bedded Outpatient [id number] Yocasta Ndiaye 07/11/2019 07/11/2019 [facility] Outpatient [id number] Mikel Souleymane 08/24/2019 08/25/2019 [facility] Day Surgery [id number] Yocasta Ndiaye 09/17/2019 09/17/2019 [facility] Day Surgery [id number] Ish Cortes 12/13/2019 12/13/2019 [facility] Procedures Procedure Code Date Perfomer Comments Source Vascular access incision<sup>1</sup> [id number] 10/31/2017 portocath placement [facility] Endarterectomy [id number] 10/31/2007 [facility] CABG x 4 - Coronary artery bypass grafts x 4 [id number] 10/31/2001 [facility] [place] Cataract surgery [id number] [facility] Cervical [facility] fusion [id number] [facility] Colonoscopy [id number] [facility] Lumbar spinal fusion [id number] [facility] Operation [id number] [facility] Partial resection of colon [id number] [facility] Shoulder joint operations [id number] [facility] Vasectomy [id number] [facility] Assessment and Plan Assessment and Plan Date Source Extracted from:Title: CCU History and Ph ysical Author: Nicho Saldivar MD Date: 10/10/18 Patient [...] on-going), BPH (Tamsulosin 0.4mg) who presented to [facility] for scheduled PCI after the positive PET CT in April (LCX ischemia). Patient received DESx2 to the LCX, DESx1 to prox LAD, DESx1 RPDA. Patient's web analytics developer is Dr. Saldivar. Patient was loaded with Ticagrelor 180mg during procedure. They also attempted PCI on CONSTRUCTION MANAG[employer], and there were some worries of perforation but angriography/echo had no evidence of perforation or perfusion. Per procedure recommendations, patient will stop his home Plavix, and be discharged on Ticagrelor 90mg BID and continue his Aspirin 81mg. CV #CAD s/p CABG, PCI #Elective PCI - MEGGAN to LCX, prox LAD, RPDA - Ticagrelor 180mg in procedure, startin g DAPT tomorrow - Has web analytics developer, Dr. Saldivar to fo llow-up with #HTN #HFrEF (30-35%) - Home [...] renal disease Diet Heart Healthy-- 10/10/18 10:16:00 OCCUPATIONAL THERAPY AIDES TEACHER Code: Full Aiden Fletcher MD [facility] Internal Medicine PGY1 CCU/CIMU Daily Patient Safety [...] s/p CPR Cardiogenic Shock Acute ST Elevation MA Anterior LAD Lateral LCx Inferior RCA Non ST Elevation MA Anterior LAD Lateral LCx Inferior RCA Unstable [...] Mild Moderate Severe Obesity Morbid Addendum by Ankit Aguilar MD on 10/13/2018 14:39 OCCUPATIONAL THERAPY AIDES TEACHER ATTENDING ADDENDUM I have seen and examined the patient. Furthermore, I have reviewed the resident's/fellow's note dated today, and I agree with the assessment and plan. I have personally reviewed the laboratory results, radiology results, and tracings. Dr. Ankit Aguilar MD #[id number] 10/11/2018 [facility] Extracted from:Title: Progress Note Author: Jaylan Albert MD Date: 08/24/18 1.S/P right hemicolectomy(Z90.49) 2.DM (diabetes mellitus)(E11.9) 3.Hypertension(I10) Patient is medically stable for discharge. Would d/c on anti-HTN per cardiology recommendations. Can resume home diabetes meds. Otherwise, can f/u with PCP. Extracted from:Title: Cardiology Consult Note Author: Ross Benitez MD Date: 08/23/18 Mr Womack, 68/M with CAD s/p CABG, HTN, DM2, COPD, PAD, is in the hospital for right hemicolectomy for largecolonic polyp. Cardiology is consulted for medical management of his CAD and HTN. CAD s/p CABG HTN -pt reports he is on aspirin and clopido grel at home, also on lisinopril 10, carvedilol 25q12 and rousuvastatin 20mg at home. Was recently started on imdur by outside web analytics developer. -on lisinopril 10, carvedilol 12.5q12, a mlodipine 5 and Imdur 30 in the hospital Recommendations -continue aspirin 81mg daily -continue clopidogrel 75mg daily -recommend increasing dose of lisinopril from 10mg to 20mg daily -Continue Amlodipine 5 mg daily -Discontinue Imdur Switch from Rosuvastatin to Atorvastatin 40mg daily for CAD (High intensity statin) Case discussed with Dr. Odin Benitez MD Internal Medicine [facility] [place] Addendum by Kishore Newby MD on 08/23/2018 14:07 CDT I have seen the patient in collaboration with the housestaff (resident and/or fellow). I have examined the patient independently, and have reviewed any history, radiographic and cardiac imaging, and diagnostic testing. I agree with the findings and plan outlined in the note by the resident with the following additions/modifications: -known CAD s/p CABG with distant failure of SVG-RCA graft -s/p hemicolectomy for large polyp -suggest d/c ISMN given lack of angina, but increase ACEi for BP optimization -for cost reasons switch from rosuva to atorva (Crestor to Lipitor) 08/25/2018 [facility] Plan of Care No Data Provided for This Section Social History Social History Date Source Social History TypeResponse Alcohol Past, Type Beer. Previous treatment: None.1 Employment/School Status: Retired. Substance Abuse Use: None. Smoking Status Former smoker; Type: Cigarettes; Previous treatment: None; Ready to change: No; Concerns about tobacco use in household: No; Exposure to Tobacco Smoke None; Cigarette Smoking Last 365 Days No; Reg Smoking Cessation Counseling No2 entered on: 12/06/19 1quit drinking in [id number] smoking 15 years ago 12/06/2019 [facility] Social History TypeResponse Smoking Status Former smoker; Type: Cigarettes; Exposure to Tobacco Smoke None; Cigarette Smoking Last 365 Days No; Reg Smoking Cessation Counseling No1 entered on: 10/10/18 1Quit smoking 15 years ago 08/2018 [facility] Family History No Data Provided for This Section Advance Directives No Data Provided for This Section Functional Status No Data Provided for This Section
--- OUTSIDE RECORDS SUMMARY | 2020-03-11 13:02 | XMS REPORT | Summary of Care ---
Author Author [facility] Organization [facility] Address Unknown Phone Unavailable Encounter SUZIE Amado(CANDIE) [id number] Date(s): 08/21/18 - 08/24/18 [facility] [address] [facility] provided by [facility] [place] [address]- Encounter Diagnosis Polyp of colon (Final) - 09/01/18 Type 2 diabetes mellitus without complications (Final) - Pure hypercholesterolemia, unspecified (Final) - Hyperlipidemia, unspecified (Final) - Obstructive sleep apnea (adult) (pediatric) (Final) - Essential (primary) hypertension (Final) - Atherosclerotic heart disease of [place] coronary artery without angina pectoris (Final) - Chronic obstructive pulmonary disease, unspecified (Final) - Encounter for immunization (Final) - Gastro-esophageal reflux disease without esophagitis (Final) - 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) - Personal history of nicotine dependence (Final) - Presence of aortocoronary bypass graft (Final) - Discharge Disposition: Home or Self Care Attending Physician: Yocasta Ndiaye V Admitting Physician: Yocasta Ndiaye V Referring Physician: Magnus Almaraz MD Vital Signs 1 2 3 Most recent to oldest [Reference Range]: 182.8 cm (08/22/18 5:44 PM) 182.88 cm (08/21/18 11:45 AM) 182.88 cm (08/07/18 10:49 AM) Height 98.5 DegF (08/24/18 4:14 PM) 98.0 DegF (08/24/18 7:23 AM) 97.7 DegF (08/24/18 3:27 AM) Temperature Oral [96.4-99.1 DegF] 157/61 mmHg *HI* (08/24/18 4:14 PM) 153/65 mmHg *HI* (08/24/18 7:23 AM) 160/66 mmHg *HI* (08/24/18 3:27 AM) Blood Pressure [90-140/60-90 mmHg] 18 BRMIN (08/24/18 4:14 PM) 18 BRMIN (08/24/18 7:23 AM) 18 BRMIN (08/24/18 3:27 AM) Respiratory Rate [14-20 BRMIN] 58 bpm *LOW* (08/24/18 4:14 PM) 75 bpm (08/24/18 7:23 AM) 57 bpm *LOW* (08/24/18 3:27 AM) Peripheral Pulse Rate [60-100 bpm] 99.3 kg (08/22/18 5:44 PM) 99.545 kg (08/21/18 11:45 AM) 101.004 kg (08/07/18 10:49 AM) Weight 29.72 m2 (08/22/18 5:44 PM) 29.76 m2 (08/21/18 11:45 AM) 30.2 m2 (08/07/18 10:49 AM) Body Mass Index Problem List Condition [...] Reactions, Alerts No Known Medication Allergies Medications acetaminophen 1,000 mg, 2 tab, Route: PO, Drug form: TAB, PRE OP, Start date: 08/21/18 0:00:00 CDT, Duration: 1 day, Stop date: 08/21/18 23:59:00 CDT Notes: Max acetaminophen 4000 mg/day (4 gm/day). (Same as: Tylenol Extra Streng th) Start Date: 08/21/18 Stop Date: 08/21/18 Status: Completed acetaminophen (ANES) Route: IV, Drug form: INJ, ONCE, Stop date: 08/21/18 17:11:00 CDT Start Date: 08/21/18 Stop Date: 08/21/18 Status: Completed albumin human 5% intravenous solution 12.5 gm, 250 mL, Route: IV, Drug form: INJ, ONCALL, Start date: 08/21/18 12:00:0 0 CDT, Duration: 1 day, Stop date: 08/22/18 11:59:00 CDT Notes: LOT#: Mfg: WASTE: F/P - Red; E -Red (Same a s: Albuminar)"blood product derivative" Start Date: 08/21/18 Stop Date: 08/23/18 Status: Discontinued amLODIPine 5 mg, 1 tab, Route: PO, Drug form: TAB, Daily, Dosing Weight 99.545, kg, Start d ate: 08/23/18 9:00:00 CDT, Duration: 30 day, Stop date: 09/21/18 9:00:00 OFFICE CLERK ROUTINE Notes: (Same as: Norvasc) Start Date: 08/23/18 Stop Date: 08/24/18 Status: Discontinued ANES flumazenil 0.2 mg, 2 mL, Route: IVP, Drug form: INJ, PRN, Dosing Weight 99.545, kg, PRN Alonso zodiazepine Reversal, Initial dose, Start date: 08/21/18 15:19:00 CDT, Duration: 30 day, Stop date: 09/20/18 14:18:00 OFFICE CLERK ROUTINE Notes: (Same as: Romazicon) Start Date: 08/21/18 Stop Date: 08/22/18 Status: Discontinued ANES hydrALAZINE 10 mg, 0.5 mL, Route: IVP, Drug form: INJ, Q20Min, Dosing Weight 99.545, kg, PRN Elevated BP, Start date: 08/21/18 15:19:00 CDT, Duration: 2 doses or times, Stop date: 08/22/18 0:00:00 CDT Notes: (Same as: Apresoline)Push over 5 minutes Start Date: 08/21/18 Stop Date: 08/21/18 Status: Completed ANES HYDROmorphone 0.5 mg, 0.25 mL, Route: IVP, Drug form: INJ, Q5Min, Dosing Weight 99.545, kg, NE N Pain Score 7-10, Start date: 08/21/18 15:19:00 CDT, Duration: 4 doses or times , Stop date: 08/22/18 0:00:00 CDT Notes: Same as Dilaudid Start Date: 08/21/18 Stop Date: 08/22/18 Status: Completed ANES labetalol 10 mg, 2 mL, Route: IVP, Drug form: INJ, Q5Min, Dosing Weight 99.545, kg, PRN El evated BP, Start date: 08/21/18 15:19:00 CDT, Duration: 5 doses or times, Stop d ate: 08/22/18 0:00:00 CDT Start Date: 08/21/18 Stop Date: 08/22/18 Status: Completed ANES naloxone 0.4 mg, 1 mL, Route: IVP, Drug form: INJ, Q2MIN, Dosing Weight 99.545, kg, PRN N arcotic Reversal, Start date: 08/21/18 15:19:00 CDT, Duration: 8 doses or times, Stop date: 08/22/18 0:00:00 CDT Notes: Same as Narcan Start Date: 08/21/18 Stop Date: 08/22/18 Status: Completed ANES ondansetron 4 mg, 2 mL, Route: IVP, Drug form: INJ, ONCE, Dosing Weight 99.545, kg, PRN Naus ea & Vomiting, Start date: 08/21/18 15:19:00 CDT Notes: (Same as: Bran) MEDICATION WASTE Product Size: 4 mgProduct Was chantal: ___ mg Start Date: 08/21/18 Stop Date: 08/22/18 Status: Discontinued aspirin 81 mg, 1 tab, Route: PO, Drug form: ECTAB, Daily, Dosing Weight 99.3, kg, Start date: 08/23/18 9:00:00 CDT, Duration: 30 day, Stop date: 09/21/18 9:00:00 OFFICE CLERK ROUTINE Notes: Do not crush or chew.(Same As: Ecotrin) Start Date: 08/23/18 Stop Date: 08/24/18 Status: Discontinued Breo Ellipta 100 mcg-25 mcg inhalation powder 1 puff, INHALATION, Daily Start Date: 08/07/18 Status: Ordered Breo Ellipta 100 mcg-25 mcg inhalation powder Breo Ellipta 100 mcg-25 mcg inhalation powder, 1 puff, Drug form: MISC, Route: I NHALATION, Daily, 08/23/18 13:30:00 CDT, Duration: 30 day, Stop date: 09/22/18 9 :00:00 OFFICE CLERK ROUTINE Start Date: 08/23/18 Stop Date: 08/24/18 Status: Discontinued Breo Ellipta 100 mcg-25 mcg inhalation powder 1 puff, Route: INHALATION, Drug Form: PWDR, Dosing Weight 99.545, kg, Daily, Sta rt date: 08/22/18 9:00:00 CDT, Duration: 30 day, Stop date: 09/20/18 9:00:00 OFFICE CLERK ROUTINE Start Date: 08/22/18 Stop Date: 08/23/18 Status: Deleted bupivacaine liposome 20 mL, Route: InFILtration(local), Drug Form: INJ, ONCALL, Start date: 08/21/18 12:00:00 CDT, Duration: 1 day, Stop date: 08/22/18 11:59:00 CDT Notes: (Same as: Exparel) NOT FOR IV use Postoperative analgesia: Infi ltration (local): Dose is based on surgical site and volume required to cover th e area (in general, the maximum total dose is 266 mg).Bunionectomy: 7 mL into th e tissues surrounding the osteotomy and 1 mL into the subcutaneous tissue of the surgical site (total dose = 8 mL [106 mg])Hemorrhoidectomy: 30 mL (20 mL vial d iluted with 10 mL NS) divided and administered as 6 injections of 5 mL each (tot al dose = 30 mL [266 mg]) Start Date: 08/21/18 Stop Date: 08/23/18 Status: Discontinued ceFAZolin (ANES) Route: IV, Drug form: INJ, ONCE, Stop date: 08/21/18 15:30:00 CDT Start Date: 08/21/18 Stop Date: 08/21/18 Status: Completed ceFAZolin (ANES) Route: IV, Drug form: INJ, ONCE, Stop date: 08/21/18 18:11:00 CDT Start Date: 08/21/18 Stop Date: 08/21/18 Status: Completed ceFAZolin + sterile water 20 mL 2 gm, Route: IV, PRE OP, Start date: 08/21/18 0:00:00 CDT, Duration: 1 day, Stop date: 08/21/18 23:59:00 CDT, ABX Indication: Surgical Prophylaxis Notes: (Same As: Jacqueline Mccabe) MEDICATION WASTE Product Size: 1000 mgP roduct Wasted: ___ mg Start Date: 08/21/18 Stop Date: 08/23/18 Status: Discontinued CeleBREX 200 mg, 1 cap, Route: PO, Drug form: CAP, BID, Dosing Weight 99.545, kg, Start d ate: 08/22/18 9:00:00 CDT, Duration: 30 day, Stop date: 09/20/18 17:00:00 OFFICE CLERK ROUTINE Notes: NSAID. Please check indication. Not for seizure. (Same As: CeleBREX) Start Date: 08/22/18 Stop Date: 08/24/18 Status: Discontinued Coreg 25 mg, 1 tab, Route: PO, Drug form: TAB, BID, Dosing Weight 99.545, kg, Start da te: 08/22/18 9:00:00 CDT, Duration: 30 day, Stop date: 09/20/18 17:00:00 OFFICE CLERK ROUTINE Notes: Give with food. (Same As: Coreg) Start Date: 08/22/18 Stop Date: 08/23/18 Status: Discontinued Coreg 25 mg, Route: PO, Drug form: TAB, BID, Dosing Weight 99.545, kg, Start date: 9:00:00 CDT, Duration: 30 day, Stop date: 09/21/18 17:00:00 OFFICE CLERK ROUTINE Start Date: 08/23/18 Stop Date: 08/23/18 Status: Deleted Coreg 12.5 mg, 1 tab, Route: PO, Drug form: TAB, Q12H, Dosing Weight 99.3, kg, Start d ate: 08/23/18 9:00:00 CDT, Duration: 30 day, Stop date: 09/21/18 21:00:00 OFFICE CLERK ROUTINE Notes: Give with food. (Same As: Coreg) Start Date: 08/23/18 Stop Date: 08/24/18 Status: Discontinued Crestor 20 mg, 2 tab, Route: PO, Drug form: TAB, Bedtime, Dosing Weight 99.545, kg, Star t date: 08/21/18 21:00:00 CDT, Duration: 30 day, Stop date: 09/19/18 21:00:00 CS T Notes: (Same As: Crestor) Start Date: 08/21/18 Stop Date: 08/24/18 Status: Discontinued dexmedetomidine (ANES) 200 microgram Route: IV, Drug form: INJ, Start date: 08/21/18 15:27:00 CDT, Stop date: 8 16:27:00 CDT Start Date: 08/21/18 Stop Date: 08/21/18 Status: Completed Dextrose 50% Syringe 12.5 gm, 25 mL, Route: IVP, Drug Form: INJ, Dosing Weight 99.3, kg, PRN, PRN Blo od Glucose Results, Start date: 08/23/18 8:40:00 CDT, Duration: 30 day, Stop lovely e: 09/22/18 7:39:00 OFFICE CLERK ROUTINE Start Date: 08/23/18 Stop Date: 08/24/18 Status: Discontinued Dextrose 50% Syringe 25 gm, 50 mL, Route: IVP, Drug Form: INJ, Dosing Weight 99.3, kg, PRN, PRN Blood Glucose Results, Start date: 08/23/18 8:40:00 CDT, Duration: 30 day, Stop date: 09/22/18 7:39:00 OFFICE CLERK ROUTINE Start Date: 08/23/18 Stop Date: 08/24/18 Status: Discontinued Dilaudid 0.3 mg, 0.15 mL, Route: IVP, Drug form: INJ, Q3H, Dosing Weight 99.545, kg, PRN Pain Score 7-10, Start date: 08/21/18 19:20:00 CDT, Duration: 30 day, Stop date: 09/20/18 19:19:00 OFFICE CLERK ROUTINE Notes: Same as Dilaudid Start Date: 08/21/18 Stop Date: 08/24/18 Status: Discontinued diphenhydrAMINE 25 mg, 1 cap, Route: PO, Drug form: CAP, Bedtime, Dosing Weight 99.545, kg, PRN Insomnia, Start date: 08/21/18 19:20:00 CDT, Duration: 30 day, Stop date: 19:19:00 OFFICE CLERK ROUTINE Notes: (Same as: Benadryl) Start Date: 08/21/18 Stop Date: 08/24/18 Status: Discontinued enoxaparin 40 mg, 0.4 mL, Route: SUB-Q, Drug form: INJ, [id number], Dosing Weight 99.545, kg, Start date: 08/22/18 7:19:00 CDT, Stop date: 09/20/18 7:19:00 OFFICE CLERK ROUTINE Notes: (Same as: Lovenox) Start Date: 08/22/18 Stop Date: 08/24/18 Status: Discontinued Entereg 12 mg, 1 cap, Route: PO, Drug form: CAP, BID, Dosing Weight 99.545, kg, Start da te: 08/22/18 9:00:00 CDT, Duration: 7 day, Stop date: 08/28/18 17:00:00 CDT Notes: Same as: EnteregMaximum of 15 doses Alert Restricted medication Alvimopa n (Entergen) order form must be completed prior to dispensing. Start Date: 08/22/18 Stop Date: 08/24/18 Status: Discontinued Entereg 12 mg, 1 cap, Route: PO, Drug form: CAP, PRE OP, Start date: 08/21/18 12:00:00 C DT, Duration: 1 day, Stop date: 08/22/18 11:59:00 CDT Notes: Same as: EnteregMaximum of 15 doses Alert Restricted medication Alvimopa n (Entergen) order form must be completed prior to dispensing. Start Date: 08/21/18 Stop Date: 08/21/18 Status: Completed EPINEPHrine (ANES) Route: IV, Drug form: INJ, ONCE, Stop date: 08/21/18 15:31:00 CDT Start Date: 08/21/18 Stop Date: 08/21/18 Status: Completed famotidine 20 mg, 1 tab, Route: PO, Drug form: TAB, Q12H, Dosing Weight 99.545, kg, Start d ate: 08/21/18 21:00:00 CDT, Duration: 30 day, Stop date: 09/20/18 9:00:00 OFFICE CLERK ROUTINE Notes: (Same as: Pepcid) Start Date: 08/21/18 Stop Date: 08/24/18 Status: Discontinued fentaNYL (ANES) Route: IV, Drug form: INJ, ONCE, Stop date: 08/21/18 15:25:00 CDT Start Date: 08/21/18 Stop Date: 08/21/18 Status: Completed Flagyl 500 mg, 100 mL, Route: IVPB, Drug form: INJ, PRE OP, Start date: 08/21/18 0:00:0 0 CDT, Duration: 1 day, Stop date: 08/21/18 23:59:00 CDT, ABX Indication: Surgic al Prophylaxis Notes: (Same as: Flagyl) Avoid alcohol. Start Date: 08/21/18 Stop Date: 08/21/18 Status: Completed Flomax 0.4 mg, 1 cap, Route: PO, Drug form: CAP, Daily, Dosing Weight 99.545, kg, Start date: 08/22/18 9:00:00 CDT, Duration: 30 day, Stop date: 09/20/18 9:00:00 OFFICE CLERK ROUTINE Notes: (Same As: Flomax) "Do Not Crush" Start Date: 08/22/18 Stop Date: 08/24/18 Status: Discontinued gabapentin 300 mg oral capsule 300 mg, 1 cap, Route: PO, Drug form: CAP, Q8H, Dosing Weight 99.545, kg, (CrCl > 60 ml/min), Start date: 08/22/18 0:00:00 CDT, Duration: 30 day, Stop date: 09/01 11/17 16:00:00 OFFICE CLERK ROUTINE Notes: (Same as: Neurontin) Start Date: 08/22/18 Stop Date: 08/24/18 Status: Discontinued glucagon 1 mg, Route: IM, Drug form: PDR/INJ, PRN, Dosing Weight 99.3, kg, PRN Blood Gluc ose Results, Start date: 08/23/18 8:40:00 CDT, Duration: 30 day, Stop date: 09/01 01/15 7:39:00 OFFICE CLERK ROUTINE Start Date: 08/23/18 Stop Date: 08/24/18 Status: Discontinued glycopyrrolate (ANES) Route: IV, Drug form: INJ, ONCE, Stop date: 08/21/18 16:00:00 CDT Start Date: 08/21/18 Stop Date: 08/21/18 Status: Completed glycopyrrolate (ANES) Route: IV, Drug form: INJ, ONCE, Stop date: 08/21/18 19:36:00 CDT Start Date: 08/21/18 Stop Date: 08/21/18 Status: Completed Incruse Ellipta Incruse Ellipta, 1 inhalation, Drug form: MISC, Route: INHALATION, Daily, 13:30:00 CDT, Duration: 30 day, Stop date: 09/22/18 9:00:00 OFFICE CLERK ROUTINE Start Date: 08/23/18 Stop Date: 08/24/18 Status: Discontinued indocyanine green (ANES) Route: IV, Drug form: PDR/INJ, ONCE, Stop date: 08/21/18 17:01:00 CDT Start Date: 08/21/18 Stop Date: 08/21/18 Status: Completed indocyanine green (ANES) Route: IV, Drug form: PDR/INJ, ONCE, Stop date: 08/21/18 18:36:00 CDT Start Date: 08/21/18 Stop Date: 08/21/18 Status: Completed insulin lispro 2 unit, 0.02 mL, Route: SUB-Q, Drug form: SOLN, TID-Before Meals, Dosing Weight 99.3, kg, PRN Blood Glucose Results, Start date: 08/23/18 8:40:00 CDT, Duration: 30 day, Stop date: 09/22/18 8:39:00 OFFICE CLERK ROUTINE Notes: (Same as: Humalog ) Roll in palms of hands gently; Do not shake `dreaorou sly. "Single Patient Use Only " WASTE: F/P - Black; E - [employer] Trash Bin St able for 28 days at room temperature.Expires in days from Da te Start Date: 08/23/18 Stop Date: 08/24/18 Status: Discontinued insulin lispro 4 unit, 0.04 mL, Route: SUB-Q, Drug form: SOLN, TID-Before Meals, Dosing Weight 99.3, kg, PRN Blood Glucose Results, Start date: 08/23/18 8:40:00 CDT, Duration: 30 day, Stop date: 09/22/18 8:39:00 OFFICE CLERK ROUTINE Notes: (Same as: Humalog ) Roll in palms of hands gently; Do not shake `vigorou sly. "Single Patient Use Only " WASTE: F/P - Black; E - [employer] Trash [address] able for 28 days at room temperature.Expires in days from Da te Start Date: 08/23/18 Stop Date: 08/24/18 Status: Discontinued insulin lispro 6 unit, 0.06 mL, Route: SUB-Q, Drug form: SOLN, TID-Before Meals, Dosing Weight 99.3, kg, PRN Blood Glucose Results, Start date: 08/23/18 8:40:00 CDT, Duration: 30 day, Stop date: 09/22/18 8:39:00 OFFICE CLERK ROUTINE Notes: (Same as: Humalog ) Roll in palms of hands gently; Do not shake `vigorou sly. "Single Patient Use Only " WASTE: F/P - Black; E - [employer] Trash [address] able for 28 days at room temperature.Expires in days from Da te Start Date: 08/23/18 Stop Date: 08/24/18 Status: Discontinued insulin lispro 8 unit, 0.08 mL, Route: SUB-Q, Drug form: SOLN, TID-Before Meals, Dosing Weight 99.3, kg, PRN Blood Glucose Results, Start date: 08/23/18 8:40:00 CDT, Duration: 30 day, Stop date: 09/22/18 8:39:00 OFFICE CLERK ROUTINE Notes: (Same as: Humalog ) Roll in palms of hands gently; Do not shake `vigorou sly. "Single Patient Use Only " WASTE: F/P - Black; E - [employer] Trash [address] able for 28 days at room temperature.Expires in days from Da te Start Date: 08/23/18 Stop Date: 08/24/18 Status: Discontinued insulin lispro 10 unit, 0.1 mL, Route: SUB-Q, Drug form: SOLN, TID-Before Meals, Dosing Weight 99.3, kg, PRN Blood Glucose Results, Start date: 08/23/18 8:40:00 CDT, Duration: 30 day, Stop date: 09/22/18 8:39:00 OFFICE CLERK ROUTINE Notes: (Same as: Humalog ) Roll in palms of hands gently; Do not shake `vigorou sly. "Single Patient Use Only " WASTE: F/P - Black; E - [employer] Trash [address] able for 28 days at room temperature.Expires in days from Da te Start Date: 08/23/18 Stop Date: 08/24/18 Status: Discontinued Insulin regular 2 unit, 0.02 mL, Route: SUB-Q, Drug form: SOLN, Sliding Scale, Dosing Weight 99. 545, kg, PRN Blood Glucose Results, Start date: 08/21/18 17:50:00 CDT, Duration: 30 day, Stop date: 09/20/18 16:49:00 OFFICE CLERK ROUTINE Notes: (Same as: Humulin R) Roll in palms of hands gently; Do not shake vigorou sly. "single patient use only"(Restricted to patients requiring a dose > 60 units)WASTE: F/P - Black; E - Municipal Trash Bin Stable for 28 days at room temperatureExpires in days from Date Start Date: 08/21/18 Stop Date: 08/22/18 Status: Discontinued Insulin regular 1 unit, 0.01 mL, Route: SUB-Q, Drug form: SOLN, Sliding Scale, Dosing Weight 99. 545, kg, PRN Blood Glucose Results, Start date: 08/21/18 17:50:00 CDT, Duration: 30 day, Stop date: 09/20/18 16:49:00 OFFICE CLERK ROUTINE Notes: (Same as: Humulin R) Roll in palms of hands gently; Do not shake vigorou sly. "single patient use only"(Restricted to patients requiring a dose > 60 units)WASTE: F/P - Black; E - Municipal Trash Bin Stable for 28 days at room temperatureExpires in days from Date Start Date: 08/21/18 Stop Date: 08/22/18 Status: Discontinued Insulin regular 3 unit, 0.03 mL, Route: SUB-Q, Drug form: SOLN, Sliding Scale, Dosing Weight 99. 545, kg, PRN Blood Glucose Results, Start date: 08/21/18 17:50:00 CDT, Duration: 30 day, Stop date: 09/20/18 16:49:00 OFFICE CLERK ROUTINE Notes: (Same as: Humulin R) Roll in palms of hands gently; Do not shake vigorou sly. "single patient use only"(Restricted to patients requiring a dose > 60 units)WASTE: F/P - Black; E - Municipal Trash Bin Stable for 28 days at room temperatureExpires in days from Date Start Date: 08/21/18 Stop Date: 08/22/18 Status: Discontinued Insulin regular 4 unit, 0.04 mL, Route: SUB-Q, Drug form: SOLN, Sliding Scale, Dosing Weight 99. 545, kg, PRN Blood Glucose Results, Start date: 08/21/18 17:50:00 CDT, Duration: 30 day, Stop date: 09/20/18 16:49:00 OFFICE CLERK ROUTINE Notes: (Same as: Humulin R) Roll in palms of hands gently; Do not shake vigorou sly. "single patient use only"(Restricted to patients requiring a dose > 60 units)WASTE: F/P - Black; E - Municipal Trash Bin Stable for 28 days at room temperatureExpires in days from Date Start Date: 08/21/18 Stop Date: 08/22/18 Status: Discontinued Insulin regular 5 unit, 0.05 mL, Route: SUB-Q, Drug form: SOLN, Sliding Scale, Dosing Weight 99. 545, kg, PRN Blood Glucose Results, Start date: 08/21/18 17:50:00 CDT, Duration: 30 day, Stop date: 09/20/18 16:49:00 OFFICE CLERK ROUTINE Notes: (Same as: Humulin R) Roll in palms of hands gently; Do not shake vigorou sly. "single patient use only"(Restricted to patients requiring a dose > 60 units)WASTE: F/P - Black; E - Municipal Trash Bin Stable for 28 days at room temperatureExpires in days from Date Start Date: 08/21/18 Stop Date: 08/22/18 Status: Discontinued Insulin regular (ANES) Route: IV, Drug form: INJ, ONCE, Stop date: 08/21/18 15:45:00 CDT Start Date: 08/21/18 Stop Date: 08/21/18 Status: Completed Insulin regular (ANES) 1 unit Route: IV, Drug form: INJ, Start date: 08/21/18 15:18:00 CDT, Stop date: 8 16:18:00 CDT Start Date: 08/21/18 Stop Date: 08/21/18 Status: Completed isosorbide mononitrate 30 mg, PO, QAM Start Date: 08/07/18 Stop Date: 10/11/18 Status: Discontinued isosorbide mononitrate 30 mg, 1 tab, Route: PO, Drug form: ERTAB, QAM, Dosing Weight 99.545, kg, Start date: 08/22/18 9:00:00 CDT, Duration: 30 day, Stop date: 09/20/18 9:00:00 OFFICE CLERK ROUTINE Notes: (Same as:Paola)"Do Not Crush" Take on empty stomach/ full glass of water . Do not crush Start Date: 08/22/18 Stop Date: 08/23/18 Status: Discontinued labetalol (ANES) Route: IV, Drug form: INJ, ONCE, Stop date: 08/21/18 19:36:00 CDT Start Date: 08/21/18 Stop Date: 08/21/18 Status: Completed Lactated Ringers Injection IV (ANES) 1000 mL Route: IV, Total Volume: 1,000, Start date: 08/21/18 14:10:00 CDT, Stop date: 15:10:00 CDT Start Date: 08/21/18 Stop Date: 08/21/18 Status: Completed Lactated Ringers Injection IV 1,000 mL 1,000 mL, Rate: 50 ml/hr, Infuse over: 20 hr, Route: IV, Dosing Weight 99.545 kg , Total Volume: 1,000, Start date: 08/21/18 19:20:00 CDT, Duration: 30 day, Stop date: 09/20/18 19:19:00 OFFICE CLERK ROUTINE, 2.26, m2 Start Date: 08/21/18 Stop Date: 08/23/18 Status: Discontinued lidocaine (ANES) Route: IV, Drug form: INJ, ONCE, Stop date: 08/21/18 15:25:00 CDT Start Date: 08/21/18 Stop Date: 08/21/18 Status: Completed lidocaine 2 gm in D5W 250 ml Premix (titrate) 2 gm 2 gm, 250 mL, Rate: Infuse as directed, Dosing Weight 99.545, kg, Route: IV, Tot al Volume: 250 mL, Start date: 08/21/18 19:20:00 CDT, Duration: 30 day, Stop lovely e: 09/20/18 18:19:00 OFFICE CLERK ROUTINE, Replace Every: 24 hr Start Date: 08/21/18 Stop Date: 08/21/18 Status: Discontinued lisinopril 20 mg, 1 tab, Route: PO, Drug form: TAB, Daily, Dosing Weight 99.3, kg, Start da te: 08/24/18 9:00:00 CDT, Duration: 30 day, Stop date: 09/22/18 9:00:00 OFFICE CLERK ROUTINE Notes: (Same as: Prinivil, Zestril) Start Date: 08/24/18 Stop Date: 08/24/18 Status: Discontinued lisinopril 10 mg, 1 tab, Route: PO, Drug form: TAB, Daily, Dosing Weight 99.545, kg, Start date: 08/22/18 9:00:00 CDT, Duration: 30 day, Stop date: 09/20/18 9:00:00 OFFICE CLERK ROUTINE Notes: (Same as: Prinivil, Zestril) Start Date: 08/22/18 Stop Date: 08/23/18 Status: Discontinued metFORMIN 1,000 mg, PO, BID Start Date: 08/07/18 Stop Date: 10/11/18 Status: Discontinued methocarbamol + Sodium Chloride 0.9% IV 100 mL 750 mg, 7.5 mL, Route: IV, Drug form: INJ, Q6H, Dosing Weight 99.545, kg, Start date: 08/22/18 0:00:00 CDT Notes: (Same as:Robaxin) Start Date: 08/22/18 Stop Date: 08/24/18 Status: Discontinued metoprolol (ANES) Route: IV, Drug form: INJ, ONCE, Stop date: 08/21/18 15:30:00 CDT Start Date: 08/21/18 Stop Date: 08/21/18 Status: Completed metoprolol (ANES) Route: IV, Drug form: INJ, ONCE, Stop date: 08/21/18 19:36:00 CDT Start Date: 08/21/18 Stop Date: 08/21/18 Status: Completed metroNIDAZOLE (ANES) Route: IV, Drug form: INJ, ONCE, Stop date: 08/21/18 15:35:00 CDT Start Date: 08/21/18 Stop Date: 08/21/18 Status: Completed neostigmine (ANES) Route: IV, Drug form: INJ, ONCE, Stop date: 08/21/18 19:36:00 CDT Start Date: 08/21/18 Stop Date: 08/21/18 Status: Completed Neurontin 600 mg, 2 cap, Route: PO, Drug form: CAP, PRE OP, Start date: 08/21/18 0:00:00 C DT, Duration: 1 day, Stop date: 08/21/18 23:59:00 CDT Notes: (Same as: Neurontin) Start Date: 08/21/18 Stop Date: 08/21/18 Status: Completed norepinephrine (ANES) Route: IV, Drug form: INJ, ONCE, Stop date: 08/21/18 15:30:00 CDT Start Date: 08/21/18 Stop Date: 08/21/18 Status: Completed norepinephrine (ANES) Route: IV, Drug form: INJ, ONCE, Stop date: 08/21/18 16:10:00 CDT Start Date: 08/21/18 Stop Date: 08/21/18 Status: Completed norepinephrine (ANES) 10 microgram Route: IV, Drug form: INJ, Start date: 08/21/18 15:06:00 CDT, Stop date: 8 16:06:00 CDT Start Date: 08/21/18 Stop Date: 08/21/18 Status: Completed norepinephrine (ANES) 10 microgram Route: IV, Drug form: INJ, Start date: 08/21/18 17:34:00 CDT, Stop date: 8 18:34:00 CDT Start Date: 08/21/18 Stop Date: 08/21/18 Status: Completed Ofirmev 1,000 mg, 100 mL, Route: IV, Drug form: INJ, Q6H, Dosing Weight 99.545, kg, for > or = 50 kg, Start date: 08/22/18 0:00:00 CDT, Duration: 30 day, Stop date: 09/20/18 18:00:00 OFFICE CLERK ROUTINE Notes: Infuse over 15 minutesDo not exceed 4gm/day of acetaminophen MEDICAT ION WASTE Product Size: 1000 mgProduct Wasted: ___ mg Start Date: 08/22/18 Stop Date: 08/23/18 Status: Discontinued ondansetron 4 mg, 2 mL, Route: IVP, Drug form: INJ, Q6H, Dosing Weight 99.545, kg, PRN Nause a & Vomiting, Start date: 08/21/18 19:20:00 CDT, Duration: 30 day, Stop date: 09/20/18 19:19:00 OFFICE CLERK ROUTINE Notes: (Same as: Bran) MEDICATION WASTE Product Size: 4 mgProduct Was chantal: ___ mg Start Date: 08/21/18 Stop Date: 08/24/18 Status: Discontinued ondansetron (ANES) Route: IV, Drug form: INJ, ONCE, Stop date: 08/21/18 19:36:00 CDT Start Date: 08/21/18 Stop Date: 08/21/18 Status: Completed pantoprazole 40 mg, PO, PRN Start Date: 08/07/18 Status: Ordered pantoprazole 40 mg, 1 tab, Route: PO, Drug form: ECTAB, Daily, Dosing Weight 99.545, kg, Star t date: 08/22/18 9:00:00 CDT, Duration: 30 day, Stop date: 09/20/18 9:00:00 OFFICE CLERK ROUTINE Notes: Tablet should not be chewed or crushed.(Same as: Protonix) Start Date: 08/22/18 Stop Date: 08/24/18 Status: Discontinued PlasmaLyte A PH-7.4 (ANES) 1000 mL Route: IV, Total Volume: 1,000, Start date: 08/21/18 14:45:00 CDT, Stop date: 15:45:00 CDT Start Date: 08/21/18 Stop Date: 08/21/18 Status: Completed propofol (ANES) Route: IV, Drug form: INJ, ONCE, Stop date: 08/21/18 17:01:00 CDT Start Date: 08/21/18 Stop Date: 08/21/18 Status: Completed propofol (ANES) Route: IV, Drug form: INJ, ONCE, Stop date: 08/21/18 15:25:00 CDT Start Date: 08/21/18 Stop Date: 08/21/18 Status: Completed Robaxin 750 mg, 1 tab, Route: PO, Drug form: TAB, PRE OP, Start date: 08/21/18 0:00:00 C DT, Duration: 1 day, Stop date: 08/21/18 23:59:00 CDT Notes: (Same as:Robaxin) Start Date: 08/21/18 Stop Date: 08/21/18 Status: Completed rocuronium (ANES) Route: IV, Drug form: INJ, ONCE, Stop date: 08/21/18 15:25:00 CDT Start Date: 08/21/18 Stop Date: 08/21/18 Status: Completed rocuronium (ANES) Route: IV, Drug form: INJ, ONCE, Stop date: 08/21/18 17:46:00 CDT Start Date: 08/21/18 Stop Date: 08/21/18 Status: Completed Sodium Chloride 0.9% IV (ANES) 500 mL Route: IV, Total Volume: 500, Start date: 08/21/18 15:02:00 CDT, Stop date: 08/01 12/18 16:02:00 CDT Start Date: 08/21/18 Stop Date: 08/21/18 Status: Completed SUFentanil (ANES) 50 microgram Route: IV, Drug form: INJ, Start date: 08/21/18 15:09:00 CDT, Stop date: 8 16:09:00 CDT Start Date: 08/21/18 Stop Date: 08/21/18 Status: Completed Tylenol 650 mg, 2 tab, Route: PO, Drug form: TAB, Q6H, Dosing Weight 99.3, kg, Start lovely e: 08/24/18 0:00:00 CDT, Duration: 30 day, Stop date: 09/22/18 18:00:00 OFFICE CLERK ROUTINE Notes: Do not exceed 4 gm/day. (Same as: Tylenol) Start Date: 08/24/18 Stop Date: 08/24/18 Status: Discontinued Results 1 2 3 Most recent to oldest [Reference Range]: 6.5 K/CMM (08/07/18 12:05 PM) Neutrophils # [1.5-8.1 K/CMM] 1.8 K/CMM (08/07/18 12:05 PM) Lymphocytes # [1.0-5.5 K/CMM] 0.8 K/CMM (08/07/18 12:05 PM) Monocytes # [0.0-0.8 K/CMM] 0.7 K/CMM *HI* (08/07/18 12:05 PM) Eosinophils # [0.0-0.5 K/CMM] 0.1 K/CMM (08/07/18 12:05 PM) Basophils # [0.0-0.2 K/CMM] 91 mL/min/1.73m2 1 *NA* (08/23/18 2:32 AM) 97 mL/min/1.73m2 2 *NA* (08/22/18 6:02 AM) 79 mL/min/1.73m2 3 *NA* (08/07/18 12:05 PM) eGFR O POS *Unknown* (08/21/18 11:57 AM) ABO/Rh Negative (08/21/18 11:57 AM) Antibody Scrn 9.1 mEq/L *LOW* (08/23/18 2:32 AM) 11.3 mEq/L (08/22/18 6:02 AM) 15.4 mEq/L (08/07/18 12:05 PM) AGAP [10.0-20.0 mEq/L] 0.7 % (08/07/18 12:05 PM) Basophils [0.0-1.0 %] 10 mg/dL (08/23/18 2:32 AM) 8 mg/dL (08/22/18 6:02 AM) 12 mg/dL (08/07/18 12:05 PM) BUN [7-22 mg/dL] 8.4 mg/dL *LOW* (08/23/18 2:32 AM) 8.6 mg/dL (08/22/18 6:02 AM) 8.5 mg/dL (08/07/18 12:05 PM) Calcium Lvl [8.5-10.5 mg/dL] 105 mEq/L (08/23/18 2:32 AM) 105 mEq/L (08/22/18 6:02 AM) 102 mEq/L (08/07/18 12:05 PM) Chloride Lvl [95-109 mEq/L] 30 mEq/L (08/23/18 2:32 AM) 29 mEq/L (08/22/18 6:02 AM) 26 mEq/L (08/07/18 12:05 PM) CO2 [24-32 mEq/L] 0.78 mg/dL (08/23/18:32 AM) 0.68 mg/dL (08/22/18 6:02 AM) 0.76 mg/dL (08/07/18 12:05 PM) Creatinine Lvl [0.50-1.40 mg/dL] 7.0 % *HI* (08/07/18 12:05 PM) Eosinophils [0.0-4.0 %] 115 mg/dL *HI* (08/23/18 2:32 AM) 159 mg/dL *HI* (08/22/18 6:02 AM) 162 mg/dL *HI* (08/07/18 12:05 PM) Glucose Lvl [70-99 mg/dL] 35.0 % *LOW* (08/23/18 2:32 AM) 35.9 % *LOW* (08/22/18 6:02 AM) 35.6 % 4 *LOW* (08/07/18 12:05 PM) Hct [42.0-54.0 %] 11.4 g/dL *LOW* (08/23/18 2:32 AM) 11.7 g/dL *LOW* (08/22/18 6:02 AM) 11.5 g/dL 5 *LOW* (08/07/18 12:05 PM) Hgb [14.0-18.0 g/dL] 7.4 % *HI* (08/07/18 12:05 PM) Hgb A1C [<=5.6 %] 4.1 mEq/L (08/23/18 2:32 AM) 4.3 mEq/L (08/22/18 6:02 AM) 4.4 mEq/L (08/07/18 12:05 PM) Potassium Lvl [3.5-5.1 mEq/L] 18.3 % *LOW* (08/07/18 12:05 PM) Lymphocytes [20.0-40.0 %] 27.3 pg (08/07/18 12:05 PM) MCH [27.0-31.0 pg] 32.4 g/dL (08/07/18 12:05 PM) MCHC [32.0-36.0 g/dL] 84.3 fL 6 (08/07/18 12:05 PM) MCV [80.0-94.0 fL] 8.4 % (08/07/18 12:05 PM) Monocytes [2.0-12.0 %] 10.5 fL *HI* (08/07/18 12:05 PM) MPV [7.4-10.4 fL] 140 mEq/L (08/23/18 2:32 AM) 141 mEq/L (08/22/18 6:02 AM) 139 mEq/L (08/07/18 12:05 PM) Sodium Lvl [135-145 mEq/L] 167 K/CMM (08/07/18 12:05 PM) Platelet [133-450 K/CMM] 65.6 % (08/07/18 12:05 PM) Segs [45.0-75.0 %] 4.23 M/CMM 7 *LOW* (08/07/18 12:05 PM) RBC [4.70-6.10 M/CMM] 15.6 % *HI* (08/07/18 12:05 PM) RDW [11.5-14.5 %] 5.3 minutes (08/07/18 12:05 PM) R-time [5.0-10.0 minutes] 1.3 minutes (08/07/18 12:05 PM) K-time [1.0-3.0 minutes] 70.7 degrees (08/07/18:05 PM) Angle [53.0-72.0 degrees] 70.4 mm *HI* (08/07/18 12:05 PM) Max Amp [50.0-70.0 mm] 11.9 K d/sc *HI* (08/07/18:05 PM) G-value [4.5-11.0 K d/sc] 2.0 % (08/07/18 12:05 PM) Ly30 [0.0-7.5 %] 2.2 (08/07/18:05 PM) Coag Index [-3.0-3.0] See Note (08/07/18 12:05 PM) TEG Data 10.0 K/CMM (08/07/18:05 PM) WBC [3.7-10.4 K/CMM] 1Result Comment: The eGFR is calculated using [...] tiplied by the estimated BMI. 4Result Comment: Reference range changed due to change in patient's sex at 11:11:13. Normal Low changed from 36.0 to 42.0. Normal High changed from 48.0 to 54.0. Result flag not changed. 5Result Comment: Reference range changed due to change in patient's sex at 11:11:13. Normal Low changed from 12.0 to 14.0. Normal High changed from 16.0 to 18.0. Result flag not changed. 6Result Comment: Reference range changed due to change in patient's sex at 11:11:13. Normal High changed from 98.0 to 94.0. Result flag not changed. 7Result Comment: Reference range changed due to change in patient's sex at 11:11:13. Normal Low changed from 4.20 to 4.70. Normal High changed from 5.40 to 6.10. Result flag changed from within range to L. Immunizations Given and Recorded Vaccine Date Status [...] ago Assessment and Plan Extracted from: Title: Progress Note Author: Jaylan Albert MD Date: 1 1.S/P right hemicolectomy( Z90.49) 2.DM (diabetes mellitus)(E11.9) 3.Hypertension(I10) Patient is medically stable for discharge. Would d/c on anti-HTN per cardiology recommendations. Can resume home diabetes meds. Otherwise, can f/u with PCP. Extracted from: Title: Cardiology Consult Note Author: Ross Benitez MD D ate: 08/23/18 Mr Womack, 68/M with CAD s/p [...] Was recently started on imdur by outside operator cavity pump. -on lisinopril 10, carvedilol 12.5q12, a mlodipine 5 and Imdur 30 in the hospital Recommendations -continue aspirin 81mg daily -continue clopidogrel 75mg daily -recommend increasing dose of lisinopril from 10mg to 20mg daily -Continue Amlodipine 5 mg daily -Discontinue Imdur Switch from Rosuvastatin to Atorvastatin 40mg daily for CAD (High intensity statin) Case discussed with Dr. Odin Benitez MD Internal Medicine [facility] Addendum by I have seen the patient in collaboration with the housestaff (resident and/or fellow). Odin, I have examined the patie nt independently, and have reviewed any history, radiographic Kishore and cardiac imaging, and di agnostic testing. I agree with the findings and plan outlined Elgin TRUJILLO in the note by the resident with the following additions/modifications: on -known CAD s/p CABG with lester fishman failure of SVG-RCA graft 08/23/2018 -s/p hemicolectomy for larg e polyp 14:07 CDT -suggest d/c ISMN given lac k of angina, but increase ACEi for BP optimization -for cost reasons switch from rosuva to atorva (Crestor to Lipitor)
--- OUTSIDE RECORDS SUMMARY | 2020-03-11 13:02 | XMS REPORT | Summary of Care ---
Author Author [facility] Organization [facility] Address Unknown Phone Unavailable Encounter SUZIE Amado(CANDIE) [id number] Date(s): 09/27/18 - 09/27/18 [facility] [address] [place] [address]- Encounter Diagnosis Spinal stenosis, lumbosacral region (Final) - Presence of aortocoronary bypass graft (Final) - Personal history of nicotine dependence (Final) - care home (current) use of antithrombotics/antiplatelets (Final) - Acquired absence of other specified parts of digestive tract (Final) - care home (current) use of aspirin (Final) - Malignant neoplasm of descending colon (Final) - 10/03/18 Chronic obstructive pulmonary disease, unspecified (Final) - Type 2 diabetes mellitus with diabetic peripheral angiopathy without gangrene (Final) - Gastro-esophageal reflux disease without esophagitis (Final) - Other intervertebral disc displacement, lumbar region (Final) - Discharge Disposition: Home or Self Care Attending Physician: Yocasta Ndiaye V Referring Physician: Yocasta Ndiaye V Vital Signs 1 2 3 Most recent to oldest [Reference Range]: 182.88 cm (09/25/18 12:16 PM) Height 97.6 DegF (09/25/18 12:16 PM) Temperature Oral [96.4-99.1 DegF] 143/59 mmHg *HI* (09/27/18 5:00 PM) 148/65 mmHg *HI* (09/27/18 4:30 PM) 144/58 mmHg *HI* (09/27/18 4:15 PM) Blood Pressure [90-140/60-90 mmHg] 12 BRMIN *LOW* (09/27/18 5:00 PM) 11 BRMIN *LOW* (09/27/18 4:30 PM) 16 BRMIN (09/27/18 4:15 PM) Respiratory Rate [14-20 BRMIN] 68 bpm (09/25/18 12:16 PM) Peripheral Pulse Rate [60-100 bpm] 98.778 kg (09/25/18 12:16 PM) Weight 29.53 m2 (09/25/18 12:16 PM) Body Mass Index Problem List Condition Effective Dates Status Health Status Informan t COPD (chronic Active obstructive pulmonary disease)(Confirmed) DM (diabetes Active mellitus)(Confirmed) SOB (shortness of Active breath) on exertion(Confirmed) GERD Active (gastroesophageal reflux disease)(Confirmed) Hypercholesteremia(C Active onfirmed) Colon Active cancer(Confirmed) Poor circulation of Active extremity(Confirmed) PAD (peripheral Active artery disease)(Confirmed) Lumbar Active stenosis(Confirmed) Allergies, Adverse Reactions, Alerts No Known Medication Allergies Medications Aspirin Enteric Coated 81 mg oral delayed release tablet 81 mg = 1 tab, PO, Daily, 0 Refill(s) Start Date: 09/25/18 Stop Date: 09/27/18 Status: Discontinued bupivacaine 0.5%-epinephrine 1:200,000 injectable solution 30 mL, Route: InFILtration(local), Drug Form: INJ, Dosing Weight 98.778, kg, ONC E, Start date: 09/27/18 14:58:00 CODING TECHNICIAN, Stop date: 09/27/18 14:58:00 CODING TECHNICIAN Notes: (bupivacaine-epi 0.5%-1:200,000 30 ml VL) Not for use in continuous infu melina. (Same As: Marcaine w/Epi) Start Date: 09/27/18 Stop Date: 10/07/18 Status: Discontinued ceFAZolin (ANES) Route: IV, Drug form: INJ, ONCE, Stop date: 09/27/18 15:38:00 CODING TECHNICIAN Start Date: 09/27/18 Stop Date: 09/27/18 Status: Completed cilostazol 100 mg oral tablet 100 mg = 1 tab, PO, Daily, 0 Refill(s) Start Date: 09/25/18 Stop Date: 10/11/18 Status: Discontinued clopidogrel 75 mg oral tablet 75 mg = 1 tab, PO, Daily, # 90 tab, 3 Refill(s) Start Date: 09/25/18 Stop Date: 09/27/18 Status: Discontinued ePHEDrine (ANES) Route: IV, Drug form: INJ, ONCE, Stop date: 09/27/18 15:58:00 CODING TECHNICIAN Start Date: 09/27/18 Stop Date: 09/27/18 Status: Completed fentaNYL (ANES) Route: IV, Drug form: INJ, ONCE, Stop date: 09/27/18 15:33:00 CODING TECHNICIAN Start Date: 09/27/18 Stop Date: 09/27/18 Status: Completed Lactated Ringers Injection IV (ANES) 1000 mL Route: IV, Total Volume: 1,000, Start date: 09/27/18 14:49:00 CODING TECHNICIAN, Stop date: 15:49:00 CODING TECHNICIAN Start Date: 09/27/18 Stop Date: 09/27/18 Status: Completed Lactated Ringers IV 1000 mL 1,000 mL, Rate: 40 ml/hr, Infuse over: 25 hr, Route: IV, Dosing Weight 98.778 kg , Total Volume: 1,000, Start date: 09/27/18 13:36:00 CODING TECHNICIAN, Duration: 30 day, Stop date: 10/27/18 13:35:00 CODING TECHNICIAN, 2.25, m2 Start Date: 09/27/18 Stop Date: 09/27/18 Status: Discontinued lidocaine (ANES) Route: IV, Drug form: INJ, ONCE, Stop date: 09/27/18 15:38:00 CODING TECHNICIAN Start Date: 09/27/18 Stop Date: 09/27/18 Status: Completed lisinopril 40 mg oral tablet 40 mg = 1 tab, PO, BID, # 90 tab, 1 Refill(s) Start Date: 09/25/18 Stop Date: 10/10/18 Status: Discontinued midazolam (ANES) Route: IV, Drug form: SOLN, ONCE, Stop date: 09/27/18 15:33:00 CODING TECHNICIAN Start Date: 09/27/18 Stop Date: 09/27/18 Status: Completed ondansetron (ANES) Route: IV, Drug form: INJ, ONCE, Stop date: 09/27/18 15:38:00 CODING TECHNICIAN Start Date: 09/27/18 Stop Date: 09/27/18 Status: Completed oxyCODONE 5 mg oral tablet 5 mg, Route: PO, Drug form: TAB, ONCE, Dosing Weight 98.778, kg, PRN Pain Score 4-6, Start date: 09/27/18 17:26:00 CODING TECHNICIAN Start Date: 09/27/18 Stop Date: 09/27/18 Status: Completed propofol (ANES) Route: IV, Drug form: INJ, ONCE, Stop date: 09/27/18 15:38:00 CODING TECHNICIAN Start Date: 09/27/18 Stop Date: 09/27/18 Status: Completed Tylenol with Codeine #3 oral tablet 1 - 2 tab, PO, Q4H, PRN Pain, X 3 day, # 20 tab, 0 Refill(s) Start Date: 09/27/18 Stop Date: 09/30/18 Status: Completed Results Most recent to 1 oldest [Reference Range]: eGFR 91 mL/min/1.73m2 1 *NA* (09/25/18 1:18 PM) AGAP [10.0-20.0 12.8 mEq/L mEq/L] (09/25/18 1:18 PM) BUN [7-22 mg/dL] 11 mg/dL (09/25/18 1:18 PM) Calcium Lvl 8.4 mg/dL [8.5-10.5 mg/dL] *LOW* (09/25/18 1:18 PM) Chloride Lvl [95-109 103 mEq/L mEq/L] (09/25/18 1:18 PM) CO2 [24-32 mEq/L] 29 mEq/L (09/25/18 1:18 PM) Creatinine Lvl 0.79 mg/dL [0.50-1.40 mg/dL] (09/25/18 1:18 PM) Glucose Lvl [70-99 99 mg/dL mg/dL] (09/25/18 1:18 PM) Hct [42.0-54.0 %] 38.5 % *LOW* (09/25/18 1:18 PM) Hgb [14.0-18.0 g/dL] 12.6 g/dL *LOW* (09/25/18 1:18 PM) Hgb A1C [<=5.6 %] 6.7 % *HI* (09/25/18 4:00 PM) Potassium Lvl 3.8 mEq/L [3.5-5.1 mEq/L] (09/25/18 1:18 PM) Sodium Lvl [135-145 141 mEq/L mEq/L] (09/25/18 1:18 PM) 1Result Comment: The eGFR is calculated using [...]
--- OUTSIDE RECORDS SUMMARY | 2020-03-11 13:03 | XMS REPORT ---
Author Author [facility] t Organization [facility] Address Unknown Phone Unavailable Care Team Providers Care Ball Worker Name Role Phone MALINDA NG Unavailable Unavailable Payers Payer Name Policy Type Policy Number Effective Date Expiration D ate Problems This patient has no known problems. Allergies, Adverse Reactions, Alerts Allergy Name Allergy Type Status Severity Reaction(s) Onset Date Inacti ve Date Treating Clinician Comments No Known Drug Intolerances DA Active U 2010-06-16 00 :00:00 No Known Contrast Allergies DA Active U 2008-06-28 0 0:00:00 No Known Drug Allergies DA Active U 2008-06-28 00:00 :00 No Known Food Allergies DA Active U 2008-06-28 00:00 :00 No Known Other Allergies DA Active U 2008-06-28 00:0 0:00 Medications This patient has no known medications. Encounters Start Date/Time End Date/Time Encounter Type Admission Type [facility] Care Department Encounter ID 2020-03-04 13:10:03 Inpatient [id number] 2020-01-31 13:31:13 Inpatient [id number] 2019-12-13 07:35:00 2019-12-13 07:35:00 Outpatient [facility] [id number] 2019-09-17 06:55:00 2019-09-17 06:55:00 Outpatient [facility] [id number] 2019-08-24 07:12:00 2019-08-24 07:12:00 Outpatient [facility] [id number] 2019-07-11 05:58:00 2019-07-11 05:58:00 Outpatient [facility] [id number] 2019-06-08 07:29:00 2019-06-08 07:29:00 Outpatient [facility] [id number] Results Test Description Test Time Test Comments Text Results Atomic Results Result Comments SPINE CERVICAL AP LAT FLEX EXT [facility] [address] [place] [address] Patient Name: ESDRAS KITCHEN JR MR #: [id number] : 1950 Age/Sex: 67/M Acct #: [id number] Req #: [id number] Adm Physician: Ordered by: MALINDA NG MD Report #: [id number] Location: [facility] Room/Bed: Procedure: [id number] DX/SPINE CERVICAL AP LAT FLEX EXT Exam Date: 01/17/18 Exam Time: 1130 REPORT STATUS: Signed PROCEDURE: C-SPINE AP AND LAT WITH FLEX AND EXT COMPARISON: [facility], DX, SPINE CERVICAL AP T LAT FLEX T EXT, 08/18/2017, 6:52. INDICATIONS: POST C-SPIN FUSION 6 MONTH CHECK UP FINDINGS: C1 through C7 are visualized on the lateral view. Mild reversal of the cervical lordosis may be related muscle spasm or positioning. Re-demonstration of status post anterior fusion of the C4-C6 with metallic plate and transfixing screws which are intact and in adequate alignment. There has been no significant interval bony fusion. Flexion and extension views demonstrate no change in alignment. The prevertebral soft tissues are not swollen. CONCLUSION: Status post anterior fusion of C4-C6 with no significant interval bony fusion. Intact hardware with adequate alignment. No change in alignment in flexion and extension views. Odilia Maurer M.D. Dictated by: Odilia Maurer M.D. on 01/17/2018 at 18:44 Electronically approved by: Odilia Maurer M.D. on 01/17/2018 at 18:44 Dictated By: ODILIA MAURER MD 43 Transcribed By: RUPESH on 01/17/181843 COPY TO: MALINDA NG MD SPINE CERVICAL AP LAT FLEX EXT [place] [address] Patient Name: ESDRAS KITCHEN JR MR #: [id number] : 1950 Age/Sex: 67/M Acct #: [id number] Req #: [id number] Adm Physician: Ordered by: MALINDA NG MD Report #: [id number] Location: [facility] Room/Bed: Procedure: [id number] DX/SPINE CERVICAL AP LAT FLEX EXT Exam Date: 08/18/17 Exam Time: 0640 REPORT STATUS: Signed PROCEDURE: SPINE CERVICAL AP T LAT FLEX T EXT COMPARISON: None. INDICATIONS: POST C-SPINE FUSION FINDINGS: 4 views of the cervical spine are obtained frontal and lateral, with lateral flexion and extension views. C7 is not visualized on the lateral views. Again noted is anterior cervical fusion hardware from C4-C6 with interbody plugs. Flexion and extension views show no subluxation or change in alignment. Air has resorbed from the anterior soft tissue since previous exam. Again noted are surgical clips in the soft tissues of the left cervical area and wire sternotomy sutures. CONCLUSION: Again noted is anterior fusion of C4-C6. No change in vertebral body alignment on flexion and extension views. Dictated by: Arti Aleman M.D. on 08/18/2017 at 7:39 Electronically approved by: Arti Aleman M.D. on 08/18/2017 at 7:39 Dictated By: ARTI ALEMAN MD 0739 Transcribed By: RUPESH on 08/18/17 0739 COPY TO: MALINDA NG MD C-SPINE 2 VIEWS AP LATERAL [place] [address] Patient Name: ESDRAS KITCHEN JR MR #: [id number] : 1950 Age/Sex: 67/M Acct #: [id number] Req #: [id number] Adm Physician: MALINDA NG MD Ordered by: MALINDA NG MD Report #: [id number] Location: MED/SURG Room/Bed: [facility] Procedure: [id number] DX/C-SPINE 2 VIEWS AP LATERAL Exam Date: 07/22/17 Exam Time: 610 REPORT STATUS: Signed C-SPINE 2 VIEWS AP LATERAL Comparison: None Clinical history: Status post surgery, postoperative fixation Findings: Visualization through C6 on lateral view. Postsurgical changes status post C4-6 ACDF. No evidence of listhesis or fracture. Clips and soft tissue gas are noted. Median sternotomy wires are visualized over the chest, the superior one broken. Impression: Expected postsurgical changes status post C4-6 ACDF. Signed by: Dr Nicci Grimaldo MD on 07/22/2017 6:46 AM Dictated By: NICCI GRIMALDO MD 5 Transcribed By: REID on 07/22/17645 COPY TO: MALINDA NG MD CHEST 2 VIEWS [place] [address] Patient Name: ESDRAS KITCHEN JR MR #: [id number] : 1950 Age/Sex: 67/M Req #: [id number] [facility] Physician: Ordered by: MALINDA NG MD Report #: [id number] Location: OR Room/Bed: Procedure: [id number] DX/CHEST 2 VIEWS Exam Date: 07/19/17 Exam Time: 954 REPORT STATUS: Signed PROCEDURE: Frontal and lateral views of the chest. COMPARISON: None. INDICATIONS: PRE OPERATIVE CHEST X-RAY FOR C-SPINE SURGERY FINDINGS: Lines/tubes: Median sternotomy wires and mediastinal clips are intact. Lungs: The lungs are well inflated and clear. There is no evidence of pneumonia or pulmonary edema. Pleura: There is no pleural effusion or pneumothorax. Heart and mediastinum: The heart and the mediastinum are normal. Bones: No acute bony abnormality. IMPRESSION: No acute cardiopulmonary disease. Dictated by: Aram Hendrickson M.D. on 07/19/2017 at 11:52 Electronically approved by: Aram Hendrickson M.D. on 07/19/2017 at 11:52 Dictated By: ARAM HENDRICKSON MD 1152 Transcribed By: RUPESH on 07/19/17 1152 COPY TO: MALINDA NG MD
[2020-03-11] MEDS ORDERED: ALPRAZOLAM 0.5 MG TAB ONE (13:31)
[2020-03-11] MEDS ORDERED: DIPHENHYDRAMINE HCL 25 MG CAP ONE (13:31)
[2020-03-11] MEDS ORDERED: HEPARIN SOD (PORCINE) 1000 UNIT/ML 30ML ONE (15:35)
[2020-03-11] MEDS ORDERED: MIDAZOLAM HCL 2 MG/2 ML VIAL ONE (15:35)
[2020-03-11] MEDS ORDERED: FENTANYL CITRATE/PF 100MCG/2 ML INJ ONE (15:35)
[2020-03-11] MEDS ORDERED: LIDOCAINE HCL 2% LOCAL 20 ML VIAL ONE (15:36)
[2020-03-11] MEDS ORDERED: IOPAMIDOL 370 MG/ML 200 ML INFUS..BTL INJ ONE (15:37)
[2020-03-11] MEDS ORDERED: HEPARIN SOD/SOD CHLORIDE 2,000 ML ONE (15:37)
[2020-03-11] MEDS ORDERED: SODIUM CHLORIDE 0.9% 1000ML 1,000 ML ONE (15:37)
[2020-03-11] MEDS ORDERED: SODIUM CHLORIDE 0.9% 50ML 50 ML ONE (16:08)
[2020-03-11] MEDS ORDERED: BIVALRIUDIN 250 MG/VIAL VIAL IV ONE (16:08)
--- NOTE | 2020-03-11 16:26 | NUR ---
1626pm received verbal handoff from Mitesh VIEIRA Pt to admitted tele observation status. Rm 107 assigned.ds/rn
[2020-03-11] MEDS ORDERED: ASPIRIN 325 MG TAB ONE (16:27)
[2020-03-11] MEDS ORDERED: PRASUGREL 10 MG TAB ONE (16:27)
--- NOTE | 2020-03-11 16:33 | NUR ---
1633pm RECEIVING NOTE [employer]............................................................... Bedside report received from Derick VIEIRA. Identifierx2. Alert oriented and appropriate, PERRLA, respirations even and unlabored to room air. Pulses x4 extremities equal and strong. Pedal pulses PT/DP and marked.1+/1*/1+/1+ Cap fill brisk < 3 sec. Rt sheath in place with angiomax infusing sheath pull at 1900 and transfer to floor care by 1930pm. Skin warm and dry integrity appears. IV 20g to left forearm presents healthy w/o s/s of infiltration or complaint. Abdomen soft and supple. pt offered toileting, denies need to urinate or defecate. No personal affects with patient. Family daughter Chani at bedside and signed pre dc papers.For am discharge. Pt and family verbalizes understanding of POC. Currently w/o complaint of pain or need. ds./pamela
[2020-03-11] MEDS ORDERED: MORPHINE SULFATE INJ 4 MG/ML INJ 1ML IV PRN (16:45)
[2020-03-11] MEDS ORDERED: ZOLPIDEM TARTRATE 5 MG TAB PO PRN (16:45)
[2020-03-11] MEDS ORDERED: ONDANSETRON HCL INJ 2MG/ML 2ML 2 MG/ML VIAL IV PRN (16:45)
[2020-03-11] MEDS ORDERED: ACETAMINOPHEN 325 MG TAB PO PRN (16:45)
[2020-03-11] MEDS ORDERED: HYDROCODONE/APAP 5MG-325MG TAB PO PRN (16:45)
--- NOTE | 2020-03-11 18:30 | Operative Report ---
DATE OF PROCEDURE: 03/11/2020 SURGEON: Miles Ramirez MD INDICATIONS: 1. Coronary artery disease, abnormal stress test. 2. Peripheral arterial disease with claudication. 3. Unstable angina. PROCEDURES PERFORMED: 1. Conscious sedation administration. Hemodynamic and neurological monitoring in recovery by slab grinder RN, supervision by 65 minutes. 2. Left heart catheterization, selective coronary angiography. 3. Selective cannulation of one arterial and one two-venous bypass conduit. 4. Abdominal aorta catheter placement, abdominal aortogram. 5. Stent PTCA and stent placement to the proximal and ostial circumflex artery. 6. Manual removal of sheath from the right femoral sheath. DESCRIPTION OF PROCEDURE: Access was obtained in the right femoral artery. Abdominal aortogram demonstrated diffusely ectatic and calcified abdominal aorta. Right common iliac artery 70% to 80% stenosis. Left iliac artery was occluded with reconstitution level of the left femoral artery. Left common femoral artery is also occluded. Coronary angiography demonstrated 50% distal left main lesion. Left anterior descending artery had diffuse 50% stenosis circumflex stent in the proximal portion 90% in-stent restenosis. Right coronary artery is occluded. One saphenous vein bypass graft was found to be occluded. Left internal mammary artery was widely patent. The left anterior descending artery right saphenous vein bypass graft to the distal right coronary artery was widely patent. A decision was made to intervene on the circumflex artery. The patient received Angiomax, oral aspirin and Effient for anticoagulation. The left main was cannulated using an XB3.5, 6-Slovenian guiding catheter. Short Runthrough wire was advanced for support. Predilatation with 2.5 mm balloon following which a single 2.75 x 16 mm Synergy stent was deployed at 14 atmospheres. Excellent end result, less than 10% residual stenosis SAFIA-3 flow. No complications. Wire and guide were removed. Sheath secured in place, removed under manual pressure. The patient observed in the hospital overnight. Miles Ramirez MD KSB/MODL /[id number]
--- OUTSIDE RECORDS SUMMARY | 2020-03-11 19:02 | XMS REPORT | Continuity of Care Document ---
Author Author [employer], [employer] Organization [employer] Address Unknown Phone Unavailable Care Team Providers Care Software Support Specialist Name Role Phone [facility] [employer] Information Exchange Unavailable Un available Problems Problem Status Onset Date Classification Date Reported Comments Source UNK Active 0 03/03/2020 [facility] H93.90-UNSPECIFIED DISORDER OF EAR, UNSP Active 08/21/2019 [facility] LYMPH NODE Active 06/04/2019 [facility] Atherosclerotic heart disease of [place] coronary artery without angina pectoris 10/18/2018 04/30/2019 [facility] 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 Diabetes mellitus (disorder) A ctive Problem [facility] Dyspnea on exertion (finding) Active Problem [facility] Gastroesophageal reflux disease (disorder) Active Problem 12/15/2019 [facility] Hypercholesterolemia (disorder) Active Problem [facility] Malignant tumor of colon (disorder) Resolved Problem [facility] Peripheral vascular disease (disorder) Active Problem [facility] Spinal stenosis of lumbar region (disorder) Active Problem 12/15/2019 [facility] Spinal stenosis, lumbosacral region 04/16/2019 [facility] Personal history of nicotine dependence 04/16/2019 [facility] terminal carman (current) use of antithromboti cs/antiplatelets 04/16/2019 [facility] Acquired absence of other specified part s of digestive tract 04/16/2019 [facility] FDC (current) use of aspirin 04/16/2019 [facility] Chronic obstructive pulmonary disease, unspecified 04/16/2019 [facility] Type 2 diabetes mellitus with diabetic p eripheral angiopathy without gangrene 04/16/2019 [facility] Gastro-esophageal reflux disease without esophagitis 04/16/2019 [facility] Other intervertebral disc displacement, lumbar region 04/16/2019 [facility] Type 2 diabetes mellitus without complications 04/30/2019 [facility] Pure hypercholesterolemia, unspecified 03/13/2019 [facility] Hyperlipidemia, unspecified 04/30/2019 [facility] Obstructive sleep apnea (adult) (pediatric) 03/13/2019 [facility] Essential (primary) hypertension 03/13/2019 [facility] Encounter for immunization 03/13/2019 [facility] Presence of aortocoronary bypass graft 04/30/2019 [facility] Chronic systolic (congestive) heart failure 04/30/2019 [facility] Malignant neoplasm of colon, unspecified 04/30/2019 [facility] Hypertensive heart disease with heart failure 04/30/2019 [facility] Medications Medication Details Route Status Patient Instructions Ordering Provider Order Date Source protamine (ANES) Route: IV, Dr ug form: INJ, ONCE, Stop date: 12/13/19 12:56:00 LIGHT BULB TESTER Inactive 12/13/2019 [facility] propofol (ANES) Route: IV, Chad g form: INJ, ONCE, Stop date: 12/13/19 12:46:00 LIGHT BULB TESTER Inactive 12/13/2019 [facility] lidocaine (ANES) Route: IV, Dr ug form: INJ, ONCE, Stop date: 12/13/19 12:15:00 LIGHT BULB TESTER Inactive 12/13/2019 [facility] midazolam (ANES) Route: IV, Dr ug form: SOLN, ONCE, Stop date: 12/13/19 12:15:00 LIGHT BULB TESTER Inactive 12/13/2019 [facility] heparin (ANES) Route: IV, Drug form: INJ, ONCE, Stop date: 12/13/19 12:10:00 LIGHT BULB TESTER Inactive 12/13/2019 [facility] propofol (ANES) Route: IV, Chad g form: INJ, ONCE, Stop date: 12/13/19 12:05:00 LIGHT BULB TESTER Inactive 12/13/2019 [facility] fentaNYL (ANES) Route: IV, Chad g form: INJ, ONCE, Stop date: 12/13/19 12:05:00 LIGHT BULB TESTER Inactive 12/13/2019 [facility] ondansetron (ANES) Route: IV, Drug form: INJ, ONCE, Stop date: 12/13/19 12:00:00 LIGHT BULB TESTER Inactive 12/13/2019 [facility] fentaNYL (ANES) Route: IV, Chad g form: INJ, ONCE, Stop date: 12/13/19 11:55:00 LIGHT BULB TESTER Inactive 12/13/2019 [facility] ceFAZolin (ANES) Route: IV, Dr ug form: INJ, ONCE, Stop date: 12/13/19 11:50:00 LIGHT BULB TESTER Inactive 12/13/2019 [facility] midazolam (ANES) Route: IV, Dr ug form: SOLN, ONCE, Stop date: 12/13/19 11:45:00 LIGHT BULB TESTER Inactive 12/13/2019 [facility] vancomycin (ANES) 1000 mg Rout e: IV, Drug form: INJ, Start date: 12/13/19 11:15:00 LIGHT BULB TESTER, Stop date: 12/13/19 12:15:00 LIGHT BULB TESTER Inactive 12/13/2019 [facility] Lactated Ringers Injection IV (ANES) 1000 mL Route: IV, Total Volume: 1,000, Start date: 12/13/19 10:55:00 LIGHT BULB TESTER, Stop date: 12/13/19 11:55:00 LIGHT BULB TESTER Inactive 12/13/2019 [facility] clopidogrel 75 mg oral tablet 75 mg = 1 tab, PO, Daily, 0 Refill(s) Active 12/06/2019 [facility] Ancef 2 gm, Route: IVPB, PRE O P, Dosing Weight 93.21, kg, Start date: 12/06/19 11:00:00 LIGHT BULB TESTER, Duration: 1 day, Stop date: 12/07/19 10:59:00 LIGHT BULB TESTER, ABX Indication: Surgical Prophylaxis No Longer Active 12/06/2019 [facility] Vancomycin 1 gm, Route: IV, DC E OP, Dosing Weight 93.21, kg, Start date: 12/06/19 11:00:00 LIGHT BULB TESTER, Duration: 1 day, Stop date: 12/07/19 10:59:00 LIGHT BULB TESTER, ABX Indication: Surgical Prophylaxis No Longer Active 12/06/2019 [facility] lidocaine (ANES) Route: IV, Dr ug form: INJ, ONCE, Stop date: 09/17/19 9:42:00 LIGHT BULB TESTER Inactive 09/17/2019 [facility] ceFAZolin (ANES) Route: IV, Dr ug form: INJ, ONCE, Stop date: 09/17/19 9:27:00 LIGHT BULB TESTER Inactive 09/17/2019 [facility] ondansetron (ANES) Route: IV, Drug form: INJ, ONCE, Stop date: 09/17/19 9:27:00 LIGHT BULB TESTER Inactive 09/17/2019 [facility] midazolam (ANES) Route: IV, Dr ug form: SOLN, ONCE, Stop date: 09/17/19 9:22:00 LIGHT BULB TESTER Inactive 09/17/2019 [facility] fentaNYL (ANES) Route: IV, Chad g form: INJ, ONCE, Stop date: 09/17/19 9:22:00 LIGHT BULB TESTER Inactive 09/17/2019 [facility] Acetaminophen 300 MG / Codeine Phosphate 30 MG Oral Tablet [Tylenol with Codeine #3] 1 - 2 tab, PO, Q6H, PRN Pain, X 2 day, # 10 tab, 0 Refill(s) No Longer Active 09/17/2019 [facility] propofol (ANES) 10 mg Route: I V, Drug form: INJ, Start date: 09/17/19 8:52:00 LIGHT BULB TESTER, Stop date: 09/17/19 9:52:00 LIGHT BULB TESTER Inactive 09/17/2019 [facility] Lactated Ringers Injection IV (ANES) 1000 mL Route: IV, Total Volume: 1,000, Start date: 09/17/19 8:41:00 LIGHT BULB TESTER, Stop date: 09/17/19 9:41:00 LIGHT BULB TESTER Inactive 09/17/2019 [facility] Calcium Chloride 0.0014 MEQ/ML / Potassi um Chloride 0.004 MEQ/ML / Sodium Chloride 0.103 MEQ/ML / Sodium Lactate 0.028 MEQ/ML Injectable Solution 1,000 mL, Rate: 75 ml/hr, Infuse over: 1 3.3 hr, Route: IV, Dosing Weight 93.182 kg, Total Volume: 1,000, Start date: 09/17/19 8:03:00 LIGHT BULB TESTER, Duration: 30 day, Stop date: 10/17/19 8:02:00 LIGHT BULB TESTER, 2.19, m2 Inactive 09/17/2019 [facility] Sodium Chloride 0.9% IV 1000 mL 1,000 mL, Rate: 75 ml/hr, Infuse over: 13.3 hr, Route: IV, Dosing Weight 90.909 kg, Total Volume: 1,000, Start date: 07/11/19 7:03:00 CDT, Duration: 30 day, Stop date: 08/10/19 7:02:00 CDT, 2.16, m2 Inactive 07/11/2019 [facility] clopidogrel 75 MG Oral Tablet [Plavix] 75 mg = 1 tab, PO, Daily, 0 Refill(s) Active 07/05/2019 [facility] carvedilol 12.5 mg oral tablet 12.5 mg = 1 tab, PO, BID, 0 Refill(s) Active 07/03/2019 [facility] cilostazol 100 mg oral tablet 100 mg = 1 tab, PO, BID, 0 Refill(s) Active 07/03/2019 [facility] Advair Diskus 100 mcg-50 mcg inhalation powder INHALATION, BID, 0 Refill(s) Active 07/03/2019 [facility] lisinopril 10 mg oral tablet 1 0 mg = 1 tab, PO, BID, 0 Refill(s) Active 07/03/2019 [facility] sitagliptin 100 MG Oral Tablet [Januvia] 100 mg = 1 tab, PO, Daily, 0 Refill(s) Active 07/03/2019 [facility] pantoprazole 40 mg oral enteric coated tablet 40 mg = 1 tab, PO, Daily, 0 Refill(s) Active 07/03/2019 [facility] ticagrelor 90 mg oral tablet 9 0 mg = 1 tab, PO, Q12H, # 180 tab, 0 Refill(s) Active 10/11/2018 [facility] carvedilol 25 mg oral tablet 2 5 mg = 1 tab, PO, BID, # 180 tab, 0 Refill(s) Active 10/11/2018 [facility] Aspirin 81 MG Enteric Coated Tablet 81 mg = 1 tab, PO, Daily, # 90 tab, 0 Refill(s) Active 10/11/2018 [facility] isosorbide mononitrate 30 mg oral tablet , extended release 30 mg, PO, QAM, # 90 tab, 0 Refill(s) Active 10/11/2018 [facility] lisinopril 20 mg oral tablet 4 0 mg = 2 tab, PO, Daily, # 180 tab, 0 Refill(s) Active 10/11/2018 [facility] Glipizide 10 MG Oral Tablet [Glucotrol] 10 mg = 1 tab, PO, Daily, # 90 tab, 0 Refill(s) Active 10/11/2018 [facility] Tamsulosin hydrochloride 0.4 MG Oral Capsule [Flomax] 0.4 mg = 1 cap, PO, Daily, # 90 cap, 0 Refill(s) Active 10/11/2018 [facility] Rosuvastatin calcium 20 MG Oral Tablet [Crestor] 20 mg = 1 tab, PO, Bedtime, # 90 tab, 0 Refill(s) Active 10/11/2018 [facility] sitagliptin 100 MG Oral Tablet [Januvia] 100 mg = 1 tab, PO, Daily, # 90 tab, 0 Refill(s) Active 10/11/2018 [facility] Metformin hydrochloride 1000 MG Oral Tablet 1,000 mg, PO, BID, # 180 tab, 0 Refill(s) Active 10/11/2018 [facility] Flomax Notes: (Same As: Flomax ) "Do Not Crush" Inactive 10/11/2018 [facility] pantoprazole Notes: Tablet essie uld not be chewed or crushed. (Same as: Protonix) Inactive 10/11/2018 [facility] Aspirin Notes: Do not crush or chew. (Same As: Ecotrin) Inactive 10/11/2018 [facility] Ticagrelor 90 mg, Route: PO, D rug form: TAB, BID, Dosing Weight 94.545, kg, Start date: 10/11/18 9:00:00 LIGHT BULB TESTER, Duration: 30 day, Stop date: 11/09/18 17:00:00 LIGHT BULB TESTER No Longer Active 10/11/2018 [facility] Aspirin 81 MG Chewable Tablet 81 mg, Route: PO, Drug form: CHEWTAB, Daily, Dosing Weight 94.545, kg, Start date: 10/11/18 9:00:00 LIGHT BULB TESTER, Duration: 30 day, Stop date: 11/09/18 9:00:00 LIGHT BULB TESTER No Longer Active 10/11/2018 [facility] Imdur 60 mg, Route: PO, Drug f orm: ERTAB, QAM, Dosing Weight 94.545, kg, Start date: 10/11/18 9:00:00 LIGHT BULB TESTER, Duration: 30 day, Stop date: 11/09/18 9:00:00 LIGHT BULB TESTER Inactive 10/11/2018 [facility] nt Lisinopril 10 mg, Route: PO, D rug form: TAB, Daily, Dosing Weight 94.545, kg, Start date: 10/11/18 9:00:00 LIGHT BULB TESTER, Duration: 30 day, Stop date: 11/09/18 9:00:00 LIGHT BULB TESTER No Longer Active 10/11/2018 [facility] nt Coreg Notes: Give with food. ( Same As: Coreg) No Longer Active 10/11/2018 [facility] Brilinta Notes: (Same as: Bril inta) Inactive 10/11/2018 [facility] Imdur Notes: (Same as:Imdur) " Do Not Crush" Take on empty stomach/ full glass of water. Do not crush Inactive 10/11/2018 [facility] Coreg Notes: Give with food. ( Same As: Coreg) Inactive 10/11/2018 [facility] Lisinopril Notes: (Same as: Pr inivil, Zestril) No Longer Active 10/11/2018 [facility] Crestor Notes: (Same As: Crest or) No Longer Active 10/11/2018 [facility] Saline Flush 0.9% Notes: (Same as: BD Posiflush) No Longer Active 10/11/2018 [facility] pantoprazole Notes: For IV pus h reconstitute with 10 ml 0.9% sodium chloride and push over 2 minutes. (Same as: Protonix) Inactive 10/11/2018 [facility] Imdur Notes: (Same as:Imdur) " Do Not Crush" Take on empty stomach/ full glass of water. Do not crush No Longer Active 10/11/2018 [facility] Lisinopril 40 mg, Route: PO, D aily, Dosing Weight 94.545, kg, Start date: 10/10/18 20:43:00 LIGHT BULB TESTER, Duration: 30 day, Stop date: 11/09/18 9:00:00 LIGHT BULB TESTER Inactive 10/11/2018 [facility] lisinopril 10 mg oral tablet 1 0 mg = 1 tab, PO, Daily, # 30 tab, 0 Refill(s) No Longer Active 10/11/2018 [facility] nt Dextrose 50% Syringe 25 gm, 50 mL, Route: IVP, Drug Form: INJ, Dosing Weight 94.545, kg, PRN, PRN Blood Glucose Results, Start date: 10/10/18 20:05:00 LIGHT BULB TESTER, Duration: 30 day, Stop date: 11/09/18 20:04:00 LIGHT BULB TESTER No Longer Active 10/11/2018 [facility] Glucagon 1 mg, Route: IM, Drug form: PDR/INJ, PRN, Dosing Weight 94.545, kg, PRN Blood Glucose Results, Start date: 10/10/18 20:05:00 LIGHT BULB TESTER, Duration: 30 day, Stop date: 11/09/18 20:04:00 LIGHT BULB TESTER No Longer Active 10/11/2018 [facility] Insulin Lispro Notes: (Same as : Humalog ) Roll in palms of hands gently; Do not shake `vigorously. "Single Patient Use Only " WASTE: F/P - Black; E - Municipal Trash Bin Stable for 28 days at room temp erature. Expires in days from Date No Longer Active 10/11/2018 [facility] potassium phosphate Notes: (Sa me as: K Phosphate.) Do not infuse phosphorous concurrently in the same line as TPN or IVF that contains calcium. For double lumen central lines, phosphorous may be infused in a separate lumen from TPN. 1 mMol phoshate has 1.47 mEq potassium Infuse over 4 hours No Longer Active 10/11/2018 [facility] sodium phosphate Notes: Infuse over 4 hour. Do not infuse phosphorous concurrently in the same line as TPN or IVF that contains calcium. For double lumen central lines, phosphorous may be infused in a separate lumen from TPN. No Longer Active 10/11/2018 [facility] nter Magnesium Oxide Notes: (Same a s: Mag-Ox 400) Magnesium oxide [id number] elemental magnesium Dose=____mg magnesium oxide (___mg elemental magnesium) No Longer Active 10/11/2018 [facility] nter Magnesium Sulfate Notes: WASTE : F/P - Sink; E - Municipal Trash Bin No Longer Active 10/11/2018 [facility] nter Calcium Gluconate Notes: WASTE : F/P - Sink; E - Municipal Trash Bin No Longer Active 10/11/2018 [facility] nter potassium phosphate-sodium phosphate 250 mg-280 mg-160 mg oral powder for reconstitution Notes: (Same as: Phos-NaK) Each 1.5 gm pkt has 250mg phosphorous. Mix w/2.5oz water and stir. No Longer Active 10/11/2018 [facility] Calcium Carbonate 500 MG Chewable Tablet Notes: (Same As: Tums) Calcium Carbonate 500 mg = 200 mg elemental calcium Dose = mg calcium carbonate ( mg elemental calcium) No Longer Active 10/11/2018 [facility] Potassium Chloride Notes: (Kian e as: KCL) Infuse over 2 hours. No Longer Active 10/11/2018 [facility] Saline Flush 0.9% Notes: (Same as: BD Posiflush) No Longer Active 10/11/2018 [facility] Nystatin 100 UNT/MG Topical Powder Notes: (Same as:Mycostatin, Nilstat) For external use only. No Longer Active 10/11/2018 [facility] pantoprazole Notes: For IV pus h reconstitute with 10 ml 0.9% sodium chloride and push over 2 minutes. (Same as: Protonix) Inactive 10/11/2018 [facility] Nitroglycerin 0.3 mg, Route: S L, Q5Min, Dosing Weight 94.545, kg, PRN Chest Pain, Start date: 10/10/18 19:36:00 LIGHT BULB TESTER, Duration: 30 day, Stop date: 11/09/18 19:35:00 LIGHT BULB TESTER Inactive 10/11/2018 [facility] nter Hydralazine Notes: (Same as: A presoline) Push over 5 minutes Inactive 10/11/2018 [facility] Labetalol 10 mg, Route: IV, ON CE, Dosing Weight 94.545, kg, Start date: 10/10/18 18:45:00 LIGHT BULB TESTER, Stop date: 10/10/18 18:45:00 LIGHT BULB TESTER Inactive 10/11/2018 [facility] Nitroglycerin Notes: (Same as: Nitroquick, Nitrostat) "Do Not Crush" Sublingual tablet No Longer Active 10/11/2018 [facility] nter Sodium Chloride 0.9% (Bolus) IV 250 mL, 250 ml/hr, Infuse Over: 1 hr, Route: IV, 250, Drug form: INJ, ONCE, Dosing Weight 94.545 kg, Start date: 10/10/18 18:35:00 LIGHT BULB TESTER, Stop date: 10/10/18 18:35:00 LIGHT BULB TESTER Inactive 10/11/2018 [facility] Sodium Chloride 0.9% IV 750 mL 750 mL, Rate: 75 ml/hr, Infuse over: 10 hr, Route: IV, Dosing Weight 94.545 kg, Total Volume: 750, Start date: 10/10/18 18:35:00 LIGHT BULB TESTER, Duration: 10 hr, Stop date: 10/11/18 4:34:00 LIGHT BULB TESTER, 2.2, m2 No Longer Active 10/11/2018 [facility] Streptococcus pneumoniae serotype 1 caps ular antigen diphtheria [id number] protein conjugate vaccine / Streptococcus pneumoniae serotype 14 capsular antigen diphtheria [id number] protein conjugate vaccine / Streptococcus pneumoniae serotype 18C capsular antigen d Notes: Shake well prior to use (Same as: Prevnar 13) No Longe r Active 10/10/2018 [facility] nter Magnesium Sulfate Notes: WASTE : F/P - Sink; E - Municipal Trash Bin Inactive 10/10/2018 [facility] NS 1,000 mL 1,000 mL, Rate: 75 ml/hr, Infuse over: 13.3 hr, Route: IV, Dosing Weight 94.545 kg, Total Volume: 1,000, Start date: 10/10/18 10:16:00 LIGHT BULB TESTER, Duration: 30 day, Stop date: 11/09/18 10:15:00 LIGHT BULB TESTER, 2.2, m2 No Longer Active 10/10/2018 [facility] Oxycodone Hydrochloride 5 MG Oral Tablet 5 mg, Route: PO, Drug form: TAB, ONCE, Dosing Weight 98.778, kg, PRN Pain Score 4-6, Start date: 09/27/18 17:26:00 LIGHT BULB TESTER Inactive 09/27/2018 [facility] Acetaminophen 300 MG / Codeine Phosphate 30 MG Oral Tablet [Tylenol with Codeine #3] 1 - 2 tab, PO, Q4H, PRN Pain, X 3 day, # 20 tab, 0 Refill(s) No Longer Active 09/27/2018 [facility] ePHEDrine (ANES) Route: IV, Dr ug form: INJ, ONCE, Stop date: 09/27/18 15:58:00 LIGHT BULB TESTER Inactive 09/27/2018 [facility] ondansetron (ANES) Route: IV, Drug form: INJ, ONCE, Stop date: 09/27/18 15:38:00 LIGHT BULB TESTER Inactive 09/27/2018 [facility] ceFAZolin (ANES) Route: IV, Dr ug form: INJ, ONCE, Stop date: 09/27/18 15:38:00 LIGHT BULB TESTER Inactive 09/27/2018 [facility] lidocaine (ANES) Route: IV, Dr ug form: INJ, ONCE, Stop date: 09/27/18 15:38:00 LIGHT BULB TESTER Inactive 09/27/2018 [facility] propofol (ANES) Route: IV, Chad g form: INJ, ONCE, Stop date: 09/27/18 15:38:00 LIGHT BULB TESTER Inactive 09/27/2018 [facility] fentaNYL (ANES) Route: IV, Chad g form: INJ, ONCE, Stop date: 09/27/18 15:33:00 LIGHT BULB TESTER Inactive 09/27/2018 [facility] midazolam (ANES) Route: IV, Dr ug form: SOLN, ONCE, Stop date: 09/27/18 15:33:00 LIGHT BULB TESTER Inactive 09/27/2018 [facility] Bupivacaine Hydrochloride 5 MG/ML / Epin ephrine 0.005 MG/ML Injectable Solution Notes: (bupivacaine-epi 0.5%-1:200,000 3 0 ml VL) Not for use in continuous infusion. (Same As: Marcaine w/Epi) No Longer Active 09/27/2018 [facility] Lactated Ringers Injection IV (ANES) 1000 mL Route: IV, Total Volume: 1,000, Start date: 09/27/18 14:49:00 LIGHT BULB TESTER, Stop date: 09/27/18 15:49:00 LIGHT BULB TESTER Inactive 09/27/2018 [facility] Lactated Ringers IV 1000 mL 1, 000 mL, Rate: 40 ml/hr, Infuse over: 25 hr, Route: IV, Dosing Weight 98.778 kg, Total Volume: 1,000, Start date: 09/27/18 13:36:00 LIGHT BULB TESTER, Duration: 30 day, Stop date: 10/27/18 13:35:00 LIGHT BULB TESTER, 2.25, m2 Inactiv e 09/27/2018 [facility] cilostazol 100 mg oral tablet 100 mg = 1 tab, PO, Daily, 0 Refill(s) No Longer Active 09/25/2018 [facility] lisinopril 40 mg oral tablet 4 0 mg = 1 tab, PO, BID, # 90 tab, 1 Refill(s) No Longer Active 09/25/2018 [facility] clopidogrel 75 mg oral tablet 75 mg = 1 tab, PO, Daily, # 90 tab, 3 Refill(s) No Longe r Active 09/25/2018 [facility] Aspirin Enteric Coated 81 mg oral delaye d release tablet 81 mg = 1 tab, PO, Daily, 0 Refill(s) No Longer Active 09/25/2018 [facility] Lisinopril Notes: (Same as: Pr inivil, Zestril) Inactive 08/24/2018 [facility] Tylenol Notes: Do not exceed 4 gm/day. (Same as: Tylenol) Inactive 08/24/2018 [facility] Incruse Ellipta Incruse Ellipt a, 1 inhalation, Drug form: MISC, Route: INHALATION, Daily, 08/23/18 13:30:00 CDT, Duration: 30 day, Stop date: 09/22/18 9:00:00 LIGHT BULB TESTER No Longer Active 08/23/2018 [facility] nter Breo Ellipta 100 mcg-25 mcg inhalation powder Breo Ellipta 100 mcg-25 mcg inhalation powder, 1 puff, Drug form: MISC, Route: INHALATION, Daily, 08/23/18 13:30:00 CDT, Duration: 30 day, Stop date: 09/22/18 9:00:00 LIGHT BULB TESTER No Longer Active 08/23/2018 [facility] Coreg 25 mg, Route: PO, Drug f orm: TAB, BID, Dosing Weight 99.545, kg, Start date: 08/23/18 9:00:00 CDT, Duration: 30 day, Stop date: 09/21/18 17:00:00 LIGHT BULB TESTER Inactive 08/23/2018 [facility] nter Amlodipine Notes: (Same as: No rvasc) No Longer Active 08/23/2018 [facility] Aspirin Notes: Do not crush or chew. (Same As: Ecotrin) No Longer Active 08/23/2018 [facility] Dextrose 50% Syringe 12.5 gm, 25 mL, Route: IVP, Drug Form: INJ, Dosing Weight 99.3, kg, PRN, PRN Blood Glucose Results, Start date: 08/23/18 8:40:00 CDT, Duration: 30 day, Stop date: 09/22/18 7:39:00 LIGHT BULB TESTER No Longer Active 08/23/2018 [facility] Glucagon 1 mg, Route: IM, Drug form: PDR/INJ, PRN, Dosing Weight 99.3, kg, PRN Blood Glucose Results, Start date: 08/23/18 8:40:00 CDT, Duration: 30 day, Stop date: 09/22/18 7:39:00 LIGHT BULB TESTER No Longer Active 08/23/2018 [facility] Insulin Lispro Notes: (Same as : Humalog ) Roll in palms of hands gently; Do not shake `vigorously. "Single Patient Use Only " WASTE: F/P - Black; E - Municipal Trash Bin Stable for 28 days at room temp erature. Expires in days from Date No Longer Active 08/23/2018 [facility] Coreg Notes: Give with food. ( Same As: Coreg) No Longer Active 08/22/2018 [facility] Celebrex Notes: NSAID. Please check indication. Not for seizure. (Same As: CeleBREX) N o Longer Active 08/22/2018 [facility] nter Entereg Notes: Same as: Entere g Maximum of 15 doses Alert Restricted medication Alvimopan (Entergen) order form must be completed prior to dispensing. No Longer Active 08/22/2018 [facility] nter Flomax Notes: (Same As: Flomax ) "Do Not Crush" No Longer Active 08/22/2018 [facility] pantoprazole Notes: Tablet essie uld not be chewed or crushed. (Same as: Protonix) N o Longer Active 08/22/2018 [facility] nter Lisinopril Notes: (Same as: Pr inivil, Zestril) No Longer Active 08/22/2018 [facility] Isosorbide Notes: (Same as:Imd ur) "Do Not Crush" Take on empty stomach/ full glass of water. Do not crush No Longer Active 08/22/2018 [facility] Breo Ellipta 100 mcg-25 mcg inhalation powder 1 puff, Route: INHALATION, Drug Form: PWDR, Dosing Weight 99.545, kg, Daily, Start date: 08/22/18 9:00:00 CDT, Duration: 30 day, Stop date: 09/20/18 9:00:00 LIGHT BULB TESTER No Longer Active 08/22/2018 [facility] Enoxaparin Notes: (Same as: Lo venox) No Longer Active 08/22/2018 [facility] Methocarbamol Notes: (Same as: Robaxin) No Longer Active 08/22/2018 [facility] Ofirmev Notes: Infuse over 15 minutes Do not exceed 4gm/day of acetaminophen MEDICATION WASTE Product Size: 1000 mg Product Wasted: ___ mg No Longer Active 08/22/2018 [facility] nter gabapentin 300 MG Oral Capsule Notes: (Same as: Neurontin) No Longer Active 08/22/2018 [facility] Famotidine Notes: (Same as: Pe pcid) No Longer Active 08/22/2018 [facility] Crestor Notes: (Same As: Crest or) No Longer Active 08/22/2018 [facility] metoprolol (ANES) Route: IV, D rug form: INJ, ONCE, Stop date: 08/21/18 19:36:00 CDT Inactive 08/22/2018 [facility] nter neostigmine (ANES) Route: IV, Drug form: INJ, ONCE, Stop date: 08/21/18 19:36:00 CDT Inactive 08/22/2018 [facility] nter labetalol (ANES) Route: IV, Dr ug form: INJ, ONCE, Stop date: 08/21/18 19:36:00 CDT Inactive 08/22/2018 [facility] nter ondansetron (ANES) Route: IV, Drug form: INJ, ONCE, Stop date: 08/21/18 19:36:00 CDT Inactive 08/22/2018 [facility] nter glycopyrrolate (ANES) Route: I V, Drug form: INJ, ONCE, Stop date: 08/21/18 19:36:00 CDT Inactive 08/22/2018 [facility] nter Lidocaine 2 gm, 250 mL, Rate: Infuse as directed, Dosing Weight 99.545, kg, Route: IV, Total Volume: 250 mL, Start date: 08/21/18 19:20:00 CDT, Duration: 30 day, Stop date: 09/20/18 18:19:00 LIGHT BULB TESTER, Replace Every: 24 hr Inactive 08/22/2018 [facility] Dilaudid Notes: Same as Dilaud id No Longer Active 08/22/2018 [facility] Ondansetron Notes: (Same as: Ifeanyi canas) MEDICATION WASTE Product Size: 4 mg Product Wasted: ___ mg No Longer Active 08/22/2018 [facility] Diphenhydramine Notes: (Same a s: Benadryl) No Longer Active 08/22/2018 [facility] Calcium Chloride 0.0014 MEQ/ML / Potassi um Chloride 0.004 MEQ/ML / Sodium Chloride 0.103 MEQ/ML / Sodium Lactate 0.028 MEQ/ML Injectable Solution 1,000 mL, Rate: 50 ml/hr, Infuse over: 2 0 hr, Route: IV, Dosing Weight 99.545 kg, Total Volume: 1,000, Start date: 08/21/18 19:20:00 CDT, Duration: 30 day, Stop date: 09/20/18 19:19:00 LIGHT BULB TESTER, 2.26, m2 No Longer Active 08/22/2018 [facility] indocyanine green (ANES) Route : IV, Drug form: PDR/INJ, ONCE, Stop date: 08/21/18 18:36:00 CDT Inactive 08/21/2018 [facility] nter ceFAZolin (ANES) Route: IV, Dr ug form: INJ, ONCE, Stop date: 08/21/18 18:11:00 CDT Inactive 08/21/2018 [facility] nter Insulin regular 60 units) W ASTE: F/P - Black; E - Municipal Trash Bin Stable for 28 days at room temperature Expires in days from Date N o Longer Active 08/21/2018 [facility] nter rocuronium (ANES) Route: IV, D rug form: INJ, ONCE, Stop date: 08/21/18 17:46:00 CDT Inactive 08/21/2018 [facility] nter norepinephrine (ANES) 10 microgram Route: IV, Drug form: INJ, Start date: 08/21/18 17:34:00 CDT, Stop date: 08/21/18 18:34:00 CDT Inactive 08/21/2018 [facility] acetaminophen (ANES) Route: IV , Drug form: INJ, ONCE, Stop date: 08/21/18 17:11:00 CDT Inactive 08/21/2018 [facility] nter propofol (ANES) Route: IV, Chad g form: INJ, ONCE, Stop date: 08/21/18 17:01:00 CDT Inactive 08/21/2018 [facility] nter indocyanine green (ANES) Route : IV, Drug form: PDR/INJ, ONCE, Stop date: 08/21/18 17:01:00 CDT Inactive 08/21/2018 [facility] nter norepinephrine (ANES) Route: I V, Drug form: INJ, ONCE, Stop date: 08/21/18 16:10:00 CDT Inactive 08/21/2018 [facility] nter glycopyrrolate (ANES) Route: I V, Drug form: INJ, ONCE, Stop date: 08/21/18 16:00:00 CDT Inactive 08/21/2018 [facility] nter Insulin regular (ANES) Route: IV, Drug form: INJ, ONCE, Stop date: 08/21/18 15:45:00 CDT Inactive 08/21/2018 [facility] nter metroNIDAZOLE (ANES) Route: IV , Drug form: INJ, ONCE, Stop date: 08/21/18 15:35:00 CDT Inactive 08/21/2018 [facility] nter EPINEPHrine (ANES) Route: IV, Drug form: INJ, ONCE, Stop date: 08/21/18 15:31:00 CDT Inactive 08/21/2018 [facility] nter ceFAZolin (ANES) Route: IV, Dr ug form: INJ, ONCE, Stop date: 08/21/18 15:30:00 CDT Inactive 08/21/2018 [facility] nter metoprolol (ANES) Route: IV, D rug form: INJ, ONCE, Stop date: 08/21/18 15:30:00 CDT Inactive 08/21/2018 [facility] nter norepinephrine (ANES) Route: I V, Drug form: INJ, ONCE, Stop date: 08/21/18 15:30:00 CDT Inactive 08/21/2018 [facility] nter dexmedetomidine (ANES) 200 microgram Route: IV, Drug form: INJ, Start date: 08/21/18 15:27:00 CDT, Stop date: 08/21/18 16:27:00 CDT Inactive 08/21/2018 [facility] propofol (ANES) Route: IV, Chad g form: INJ, ONCE, Stop date: 08/21/18 15:25:00 CDT Inactive 08/21/2018 [facility] nter rocuronium (ANES) Route: IV, D rug form: INJ, ONCE, Stop date: 08/21/18 15:25:00 CDT Inactive 08/21/2018 [facility] nter fentaNYL (ANES) Route: IV, Chad g form: INJ, ONCE, Stop date: 08/21/18 15:25:00 CDT Inactive 08/21/2018 [facility] nter lidocaine (ANES) Route: IV, Dr ug form: INJ, ONCE, Stop date: 08/21/18 15:25:00 CDT Inactive 08/21/2018 [facility] nter Ondansetron Notes: (Same as: Ifeanyi canas) MEDICATION WASTE Product Size: 4 mg Product Wasted: ___ mg No Longer Active 08/21/2018 [facility] Flumazenil Notes: (Same as: Ro mazicon) No Longer Active 08/21/2018 [facility] Hydromorphone Notes: Same as D ilaudid No Longer Active 08/21/2018 [facility] Naloxone Notes: Same as Narcan No Longer Active 08/21/2018 [facility] Labetalol 10 mg, 2 mL, Route: IVP, Drug form: INJ, Q5Min, Dosing Weight 99.545, kg, PRN Elevated BP, Start date: 08/21/18 15:19:00 CDT, Duration: 5 doses or times, Stop date: 08/22/18 0:00:00 CDT No Longer Active 08/21/2018 [facility] Hydralazine Notes: (Same as: A presoline) Push over 5 minutes Inactive 08/21/2018 [facility] Insulin regular (ANES) 1 unit Route: IV, Drug form: INJ, Start date: 08/21/18 15:18:00 CDT, Stop date: 08/21/18 16:18:00 CDT Inactive 08/21/2018 [facility] SUFentanil (ANES) 50 microgram Route: IV, Drug form: INJ, Start date: 08/21/18 15:09:00 CDT, Stop date: 08/21/18 16:09:00 CDT Inactive 08/21/2018 [facility] norepinephrine (ANES) 10 microgram Route: IV, Drug form: INJ, Start date: 08/21/18 15:06:00 CDT, Stop date: 08/21/18 16:06:00 CDT Inactive 08/21/2018 [facility] Sodium Chloride 0.9% IV (ANES) 500 mL Route: IV, Total Volume: 500, Start date: 08/21/18 15:02:00 CDT, Stop date: 08/21/18 16:02:00 CDT Inactive 08/21/2018 [facility] PlasmaLyte A PH-7.4 (ANES) 1000 mL Route: IV, Total Volume: 1,000, Start date: 08/21/18 14:45:00 CDT, Stop date: 08/21/18 15:45:00 CDT Inactive 08/21/2018 [facility] Lactated Ringers Injection IV (ANES) 1000 mL Route: IV, Total Volume: 1,000, Start date: 08/21/18 14:10:00 CDT, Stop date: 08/21/18 15:10:00 CDT Inactive 08/21/2018 [facility] bupivacaine liposome Notes: (S sanket as: Exparel) [...] mL [266 mg]) No Longer Active 08/21/2018 [facility] albumin human 5% intravenous solution Notes: LOT#: Mfg: WASTE: F/P - Red; E -Red (Same as: Albuminar) "blood product derivative" No Longer Active 08/21/2018 [facility] nter Entereg Notes: Same as: Entere g Maximum of 15 doses Alert Restricted medication Alvimopan (Entergen) order form must be completed prior to dispensing. Inactive 08/21/2018 [facility] Robaxin Notes: (Same as:Robaxi n) Inactive 08/21/2018 [facility] acetaminophen Notes: Max aceta minophen 4000 mg/day (4 gm/day). (Same as: Tylenol Extra Strength) Inactive 08/21/2018 [facility] nter Neurontin Notes: (Same as: Dougie rontin) Inactive 08/21/2018 [facility] Flagyl Notes: (Same as: Flagyl ) Avoid alcohol. Inactive 08/21/2018 [facility] ceFAZolin + sterile water 20 mL Notes: (Same As: Ancef, Kefzol) MEDICATION WASTE Product Size: 1000 mg Product Wasted: ___ mg No Longer Active 08/21/2018 [facility] Isosorbide 30 mg, PO, QAM No Longer Active 08/07/2018 [facility] pantoprazole 40 mg, PO, PRN Active 08/07/2018 [facility] nter Metformin 1,000 mg, PO, BID No Longer Active 08/07/2018 [facility] Breo Ellipta 100 mcg-25 mcg inhalation powder 1 puff, INHALATION, Daily Active 08/07/2018 [facility] Sodium Chloride 0.9% IV 1,000 mL 1,000 mL, Rate: 25 ml/hr, Infuse over: 40 hr, Route: IV, Dosing Weight 99.205 kg, Total Volume: 1,000, Start date: 05/08/18 7:10:00 CDT, Duration: 1 day, Stop date: 05/09/18 7:09:00 CDT, 2.26, m2 Inactive 05/08/2018 [facility] clopidogrel 75 MG Oral Tablet [Plavix] 75 mg = 1 tab, PO, Daily, 0 Refill(s) Active 05/02/2018 [facility] metFORMIN 1000 mg oral tablet, extended release 1,000 mg = 1 tab, PO, Daily, # 30 tab, 0 Refill(s) Active 05/02/2018 [facility] Tamsulosin hydrochloride 0.4 MG Oral Capsule [Flomax] 0.4 mg = 1 cap, PO, Daily, 0 Refill(s) Active 05/02/2018 [facility] Rosuvastatin calcium 20 MG Oral Tablet [Crestor] 20 mg = 1 tab, PO, Bedtime, # 30 tab, 0 Refill(s) Active 05/02/2018 [facility] lisinopril 10 mg oral tablet 2 0 mg = 2 tab, PO, Daily, 0 Refill(s) Active 05/02/2018 [facility] sitagliptin 100 MG Oral Tablet [Januvia] 100 mg = 1 tab, PO, Daily, 0 Refill(s) Active 05/02/2018 [facility] Incruse Ellipta 62.5 mcg inhalation powder INHALATION, Q24H, 0 Refill(s) Active 05/02/2018 [facility] Glipizide 10 MG Oral Tablet [Glucotrol] 20 mg = 2 tab, PO, Daily, 0 Refill(s) Active 05/02/2018 [facility] carvedilol 25 MG Oral Tablet [Coreg] 50 mg = 2 tab, PO, Daily, 0 Refill(s) Active 05/02/2018 [facility] Unknown Home Medication Refill (s) 0 Active 05/02/2018 [facility] 120 ACTUAT Albuterol 0.1 MG/ACTUAT / Ipr atropium [place] 0.02 MG/ACTUAT Metered Dose Inhaler [Combivent 20/100] 1 puff, INHALATION, QID, 0 Refill(s) Active 05/02/2018 [facility] Breo Ellipta 200 mcg-25 mcg/inh inhalation powder 1 puff, INHALATION, Daily, 0 Refill(s) Active 05/02/2018 [facility] Aspirin 81 MG Enteric Coated Tablet 81 mg = 1 tab, PO, Daily, # 90 tab, 3 Refill(s) Active 05/02/2018 [facility] Allergies, Adverse Reactions, Alerts Substance Category Reaction Severity Reaction type Status Date Reported Comments Source No Known Medication Allergies Assertion Drug aller gy [facility] Immunizations Immunization Date Given Site Status Last Updated Comments Source influenza virus vaccine, inactivated 08/24/2018 Left deltoid completed Aldair Gomez [facility] Results Order Name Results Value Reference Range Date Interpretation Comments Source BLOOD BANK RESULTS ABO/Rh O POS 12/06/2019 [facility] BLOOD BANK RESULTS Antibody Scrn Negative (12/06/19 10:40 AM) 12/06/2019 [facility] CHEM PANEL Glucose Lvl 85 70 - 99 12/06/2019 [facility] CHEM PANEL BUN 11 7 - 22 12/06/2019 [facility] CHEM PANEL Creatinine Lvl 0.83 0.50 - 1.40 12/06/2019 [facility] CHEM PANEL Sodium Lvl 142 135 - 145 12/06/2019 [facility] CHEM PANEL Potassium Lvl 4.7 3.5 - 5.1 12/06/2019 [facility] CHEM PANEL Chloride Lvl 106 95 - 109 12/06/2019 [facility] CHEM PANEL CO2 32 24 - 32 12/06/2019 [facility] CHEM PANEL Calcium Lvl 8.9 8.5 - 10.5 12/06/2019 [facility] CHEM PANEL AGAP 8.7 10.0 - 20.0 12/06/2019 [facility] CHEM PANEL eGFR 88 12/06/2019 Result Comment: [...] should be multiplied by the estimated BMI. [facility] HEMATOLOGY Segs 65.5 45.0 - 75.0 12/06/2019 [facility] HEMATOLOGY Lymphocytes 22.8 20.0 - 40.0 12/06/2019 [facility] HEMATOLOGY Monocytes 9.4 2.0 - 12.0 12/06/2019 [facility] HEMATOLOGY Eosinophils 1.9 0.0 - 4.0 12/06/2019 [facility] HEMATOLOGY Basophils 0.4 0.0 - 1.0 12/06/2019 [facility] HEMATOLOGY Neutrophils # 4.8 1.5 - 8.1 12/06/2019 [facility] HEMATOLOGY Lymphocytes # 1.7 1.0 - 5.5 12/06/2019 [facility] HEMATOLOGY Monocytes # 0.7 0.0 - 0.8 12/06/2019 [facility] HEMATOLOGY Eosinophils # 0.1 0.0 - 0.5 12/06/2019 [facility] HEMATOLOGY WBC 7.4 3.7 - 10.4 12/06/2019 [facility] HEMATOLOGY RBC 4.70 4.70 - 6.10 12/06/2019 [facility] HEMATOLOGY Hgb 13.3 14.0 - 18.0 12/06/2019 [facility] HEMATOLOGY Hct 40.9 42.0 - 54.0 12/06/2019 [facility] HEMATOLOGY MCV 86.9 80.0 - 94.0 12/06/2019 [facility] HEMATOLOGY MCH 28.3 27.0 - 31.0 12/06/2019 [facility] HEMATOLOGY MCHC 32.6 32.0 - 36.0 12/06/2019 [facility] HEMATOLOGY RDW 15.7 11.5 - 14.5 12/06/2019 [facility] HEMATOLOGY Platelet 133 133 - 450 12/06/2019 [facility] HEMATOLOGY MPV 9.8 7.4 - 10.4 12/06/2019 [facility] HEMATOLOGY PT 13.4 12.0 - 14.7 12/06/2019 [facility] HEMATOLOGY INR 1.02 0.85 - 1.17 12/06/2019 [facility] HEMATOLOGY PTT 31.4 22.9 - 35.8 12/06/2019 [facility] SPECIAL CHEMISTRY Hgb A1C 7.4 <=5.6 % 12/06/2019 [facility] CHEM PANEL Glucose Lvl 128 70 - 99 09/12/2019 [facility] CHEM PANEL BUN 14 7 - 22 09/12/2019 [facility] CHEM PANEL Creatinine Lvl 0.78 0.50 - 1.40 09/12/2019 [facility] CHEM PANEL Sodium Lvl 143 135 - 145 09/12/2019 [facility] CHEM PANEL Potassium Lvl 4.7 3.5 - 5.1 09/12/2019 [facility] CHEM PANEL Chloride Lvl 108 95 - 109 09/12/2019 [facility] CHEM PANEL CO2 29 24 - 32 09/12/2019 [facility] CHEM PANEL Calcium Lvl 8.9 8.5 - 10.5 09/12/2019 [facility] CHEM PANEL eGFR 91 09/12/2019 Result Comment: [...] should be multiplied by the estimated BMI. [facility] CHEM PANEL AGAP 10.7 10.0 - 20.0 09/12/2019 [facility] HEMATOLOGY Hgb 13.3 14.0 - 18.0 09/12/2019 [facility] HEMATOLOGY Hct 40.9 42.0 - 54.0 09/12/2019 [facility] SPECIAL CHEMISTRY Hgb A1C 7.0 <=5.6 % 09/12/2019 [facility] CHEM PANEL POC Creatinine 0.7 0.5 - 1.4 08/24/2019 [facility] CHEM PANEL eGFR 95 08/24/2019 Result Comment: [...] should be multiplied by the estimated BMI. [facility] CHEM PANEL Glucose Lvl 235 70 - 99 07/03/2019 [facility] CHEM PANEL BUN 12 7 - 22 07/03/2019 [facility] CHEM PANEL Creatinine Lvl 0.89 0.50 - 1.40 07/03/2019 [facility] CHEM PANEL Sodium Lvl 144 135 - 145 07/03/2019 [facility] CHEM PANEL Potassium Lvl 4.6 3.5 - 5.1 07/03/2019 [facility] CHEM PANEL Chloride Lvl 107 95 - 109 07/03/2019 [facility] CHEM PANEL CO2 30 24 - 32 07/03/2019 [facility] CHEM PANEL Calcium Lvl 9.3 8.5 - 10.5 07/03/2019 [facility] CHEM PANEL eGFR 86 07/03/2019 Result Comment: [...] should be multiplied by the estimated BMI. [facility] CHEM PANEL AGAP 11.6 10.0 - 20.0 07/03/2019 [facility] HEMATOLOGY Hgb 12.6 14.0 - 18.0 07/03/2019 [facility] HEMATOLOGY Hct 37.9 42.0 - 54.0 07/03/2019 [facility] CHEM PANEL Magnesium Lvl 1.7 1.8 - 2.4 10/11/2018 [facility] CHEM PANEL eGFR 88 10/11/2018 Result Comment: [...] should be multiplied by the estimated BMI. [facility] CHEM PANEL Chloride Lvl 104 95 - 109 10/11/2018 [facility] CHEM PANEL Potassium Lvl 3.9 3.5 - 5.1 10/11/2018 [facility] CHEM PANEL AGAP 12.9 10.0 - 20.0 10/11/2018 [facility] CHEM PANEL BUN 12 7 - 22 10/11/2018 [facility] CHEM PANEL Sodium Lvl 140 135 - 145 10/11/2018 [facility] CHEM PANEL Creatinine Lvl 0.85 0.50 - 1.40 10/11/2018 [facility] CHEM PANEL Glucose Lvl 191 70 - 99 10/11/2018 [facility] CHEM PANEL Calcium Lvl 8.8 8.5 - 10.5 10/11/2018 [facility] CHEM PANEL CO2 27 24 - 32 10/11/2018 [facility] CHEM PANEL Phosphorus 3.9 2.5 - 4.5 10/11/2018 [facility] HEMATOLOGY Platelet 150 133 - 450 10/11/2018 [facility] HEMATOLOGY MPV 10.5 7.4 - 10.4 10/11/2018 [facility] HEMATOLOGY WBC 9.0 3.7 - 10.4 10/11/2018 [facility] HEMATOLOGY Hgb 11.6 14.0 - 18.0 10/11/2018 [facility] HEMATOLOGY RBC 4.21 4.70 - 6.10 10/11/2018 [facility] HEMATOLOGY Hct 35.1 42.0 - 54.0 10/11/2018 [facility] HEMATOLOGY MCH 27.6 27.0 - 31.0 10/11/2018 [facility] HEMATOLOGY MCV 83.3 80.0 - 94.0 10/11/2018 [facility] HEMATOLOGY RDW 15.9 11.5 - 14.5 10/11/2018 [facility] HEMATOLOGY MCHC 33.1 32.0 - 36.0 10/11/2018 [facility] HEMATOLOGY Lymphocytes 11.5 20.0 - 40.0 10/11/2018 [facility] HEMATOLOGY Lymphocytes # 1.0 1.0 - 5.5 10/11/2018 [facility] HEMATOLOGY Monocytes 9.4 2.0 - 12.0 10/11/2018 [facility] HEMATOLOGY Eosinophils 2.3 0.0 - 4.0 10/11/2018 [facility] [facility] HEMATOLOGY Segs 76.3 45.0 - 75.0 10/11/2018 [facility] HEMATOLOGY Monocytes # 0.9 0.0 - 0.8 10/11/2018 [facility] HEMATOLOGY Eosinophils # 0.2 0.0 - 0.5 10/11/2018 [facility] HEMATOLOGY Neutrophils # 6.9 1.5 - 8.1 10/11/2018 [facility] HEMATOLOGY Basophils 0.5 0.0 - 1.0 10/11/2018 [facility] PARATHYROID PROFILE Ca Ion WB 1.15 1.05 - 1.25 10/11/2018 [facility] PARATHYROID PROFILE Ca Norm WB 1.12 1.05 - 1.25 10/11/2018 [facility] HEMATOLOGY POC Activated Clotting Ti me 142 10/11/2018 [facility] CARDIAC ENZYMES Troponin-I 0.16 0.00 - 0.40 10/11/2018 [facility] CHEM PANEL Magnesium Lvl 1.9 1.8 - 2.4 10/11/2018 [facility] CHEM PANEL Phosphorus 3.9 2.5 - 4.5 10/11/2018 [facility] CHEM PANEL A/G Ratio 1.0 0.7 - 1.6 10/11/2018 [facility] CHEM PANEL Globulin 3.4 2.7 - 4.2 10/11/2018 [facility] CHEM PANEL AGAP 11.6 10.0 - 20.0 10/11/2018 [facility] CHEM PANEL B/C Ratio 13 6 - 25 10/11/2018 [facility] CHEM PANEL ALT 18 0 - 65 10/11/2018 [facility] CHEM PANEL AST 16 0 - 37 10/11/2018 [facility] CHEM PANEL Albumin Lvl 3.3 3.5 - 5.0 10/11/2018 [facility] CHEM PANEL Alk Phos 56 39 - 136 10/11/2018 [facility] CHEM PANEL Total Protein 6.7 6.4 - 8.4 10/11/2018 [facility] CHEM PANEL Bili Total 0.4 0.2 - 1.3 10/11/2018 [facility] CHEM PANEL eGFR 93 10/11/2018 Result Comment: [...] should be multiplied by the estimated BMI. [facility] CHEM PANEL CO2 30 24 - 32 10/11/2018 [facility] CHEM PANEL Sodium Lvl 142 135 - 145 10/11/2018 [facility] CHEM PANEL Potassium Lvl 3.6 3.5 - 5.1 10/11/2018 [facility] CHEM PANEL Glucose Lvl 101 70 - 99 10/11/2018 [facility] CHEM PANEL BUN 10 7 - 22 10/11/2018 [facility] CHEM PANEL Creatinine Lvl 0.75 0.50 - 1.40 10/11/2018 [facility] CHEM PANEL Calcium Lvl 8.7 8.5 - 10.5 10/11/2018 [facility] CHEM PANEL Chloride Lvl 104 95 - 109 10/11/2018 [facility] HEMATOLOGY INR 1.27 0.85 - 1.17 10/11/2018 [facility] HEMATOLOGY PT 15.6 12.0 - 14.7 10/11/2018 [facility] HEMATOLOGY PTT >200 seconds 22.9 - 35.8 10/11/2018 Result Comment: Critical Result(s) brown d to Laure Jin at 10/10/2018 21:06 by KW. Read back OK. [facility] HEMATOLOGY Hct 37.7 42.0 - 54.0 10/11/2018 [facility] HEMATOLOGY Hgb 12.1 14.0 - 18.0 10/11/2018 [facility] HEMATOLOGY MPV 10.7 7.4 - 10.4 10/11/2018 [facility] HEMATOLOGY RDW 16.5 11.5 - 14.5 10/11/2018 [facility] HEMATOLOGY Platelet 154 133 - 450 10/11/2018 [facility] HEMATOLOGY MCV 83.8 80.0 - 94.0 10/11/2018 [facility] HEMATOLOGY MCH 26.9 27.0 - 31.0 10/11/2018 [facility] HEMATOLOGY MCHC 32.0 32.0 - 36.0 10/11/2018 [facility] HEMATOLOGY WBC 8.6 3.7 - 10.4 10/11/2018 [facility] HEMATOLOGY RBC 4.50 4.70 - 6.10 10/11/2018 [facility] HEMATOLOGY Monocytes 6.2 2.0 - 12.0 10/11/2018 [facility] HEMATOLOGY Monocytes # 0.5 0.0 - 0.8 10/11/2018 [facility] HEMATOLOGY Eosinophils # 0.3 0.0 - 0.5 10/11/2018 [facility] HEMATOLOGY Lymphocytes # 2.6 1.0 - 5.5 10/11/2018 [facility] HEMATOLOGY Eosinophils 3.9 0.0 - 4.0 10/11/2018 [facility] HEMATOLOGY Neutrophils # 5.1 1.5 - 8.1 10/11/2018 [facility] HEMATOLOGY Basophils 0.5 0.0 - 1.0 10/11/2018 [facility] HEMATOLOGY Segs 59.3 45.0 - 75.0 10/11/2018 [facility] HEMATOLOGY Lymphocytes 30.1 20.0 - 40.0 10/11/2018 [facility] PARATHYROID PROFILE Ca Norm WB 1.06 1.05 - 1.25 10/11/2018 [facility] PARATHYROID PROFILE Ca Ion WB 1.12 1.05 - 1.25 10/11/2018 [facility] HEMATOLOGY POC Activated Clotting Ti me 196 10/10/2018 [facility] HEMATOLOGY POC Activated Clotting Ti me 247 10/10/2018 [facility] BLOOD BANK RESULTS ABO/Rh O POS 10/10/2018 [facility] BLOOD BANK RESULTS Antibody Scrn Negative (10/10/18 10:22 AM) 10/10/2018 [facility] CHEM PANEL Magnesium Lvl 1.5 1.8 - 2.4 10/10/2018 [facility] CHEM PANEL Phosphorus 3.5 2.5 - 4.5 10/10/2018 [facility] ELECTROLYTES AGAP 10.8 10.0 - 20.0 10/10/2018 [facility] ELECTROLYTES eGFR 90 10/10/2018 Result Comment: The [...] should be multiplied by the estimated BMI. [facility] ELECTROLYTES CO2 30 24 - 32 10/10/2018 [facility] ELECTROLYTES Calcium Lvl 8.8 8.5 - 10.5 10/10/2018 [facility] ELECTROLYTES BUN 10 7 - 22 10/10/2018 [facility] ELECTROLYTES Sodium Lvl 142 135 - 145 10/10/2018 [facility] ELECTROLYTES Creatinine Lvl 0.8 2 0.50 - 1.40 10/10/2018 [facility] ELECTROLYTES Chloride Lvl 105 95 - 109 10/10/2018 [facility] ELECTROLYTES Potassium Lvl 3.8 3.5 - 5.1 10/10/2018 [facility] ELECTROLYTES Glucose Lvl 142 70 - 99 10/10/2018 [facility] HEMATOLOGY MPV 10.4 7.4 - 10.4 10/10/2018 [facility] HEMATOLOGY RDW 16.0 11.5 - 14.5 10/10/2018 [facility] HEMATOLOGY Platelet 169 133 - 450 10/10/2018 [facility] HEMATOLOGY WBC 7.0 3.7 - 10.4 10/10/2018 [facility] HEMATOLOGY RBC 4.64 4.70 - 6.10 10/10/2018 [facility] HEMATOLOGY MCHC 32.6 32.0 - 36.0 10/10/2018 [facility] HEMATOLOGY Hct 38.6 42.0 - 54.0 10/10/2018 [facility] HEMATOLOGY MCH 27.1 27.0 - 31.0 10/10/2018 [facility] HEMATOLOGY MCV 83.3 80.0 - 94.0 10/10/2018 [facility] HEMATOLOGY Hgb 12.6 14.0 - 18.0 10/10/2018 [facility] HEMATOLOGY INR 1.06 0.85 - 1.17 10/10/2018 [facility] HEMATOLOGY PT 13.6 12.0 - 14.7 10/10/2018 [facility] HEMATOLOGY PTT 30.3 22.9 - 35.8 10/10/2018 [facility] HEMATOLOGY Eosinophils # 0.3 0.0 - 0.5 10/10/2018 [facility] HEMATOLOGY Segs 60.0 45.0 - 75.0 10/10/2018 [facility] HEMATOLOGY Lymphocytes 26.2 20.0 - 40.0 10/10/2018 [facility] HEMATOLOGY Monocytes 8.3 2.0 - 12.0 10/10/2018 [facility] HEMATOLOGY Lymphocytes # 1.8 1.0 - 5.5 10/10/2018 [facility] HEMATOLOGY Monocytes # 0.6 0.0 - 0.8 10/10/2018 [facility] HEMATOLOGY Neutrophils # 4.2 1.5 - 8.1 10/10/2018 [facility] HEMATOLOGY Basophils 0.6 0.0 - 1.0 10/10/2018 [facility] HEMATOLOGY Eosinophils 4.9 0.0 - 4.0 10/10/2018 [facility] SPECIAL CHEMISTRY Hgb A1C 6.7 <=5.6 % 09/25/2018 [facility] ELECTROLYTES AGAP 12.8 10.0 - 20.0 09/25/2018 [facility] ELECTROLYTES eGFR 91 09/25/2018 Result Comment: The [...] should be multiplied by the estimated BMI. [facility] ELECTROLYTES Calcium Lvl 8.4 8.5 - 10.5 09/25/2018 [facility] ELECTROLYTES CO2 29 24 - 32 09/25/2018 [facility] ELECTROLYTES Potassium Lvl 3.8 3.5 - 5.1 09/25/2018 [facility] ELECTROLYTES Chloride Lvl 103 95 - 109 09/25/2018 [facility] ELECTROLYTES Creatinine Lvl 0.7 9 0.50 - 1.40 09/25/2018 [facility] ELECTROLYTES BUN 11 7 - 22 09/25/2018 [facility] ELECTROLYTES Sodium Lvl 141 135 - 145 09/25/2018 [facility] ELECTROLYTES Glucose Lvl 99 70 - 99 09/25/2018 [facility] HEMATOLOGY Hgb 12.6 14.0 - 18.0 09/25/2018 [facility] HEMATOLOGY Hct 38.5 42.0 - 54.0 09/25/2018 [facility] CHEM PANEL Calcium Lvl 8.4 8.5 - 10.5 08/23/2018 [facility] CHEM PANEL CO2 30 24 - 32 08/23/2018 [facility] CHEM PANEL Sodium Lvl 140 135 - 145 08/23/2018 [facility] CHEM PANEL Potassium Lvl 4.1 3.5 - 5.1 08/23/2018 [facility] CHEM PANEL Chloride Lvl 105 95 - 109 08/23/2018 [facility] CHEM PANEL eGFR 91 08/23/2018 Result Comment: [...] should be multiplied by the estimated BMI. [facility] CHEM PANEL BUN 10 7 - 22 08/23/2018 [facility] CHEM PANEL Creatinine Lvl 0.78 0.50 - 1.40 08/23/2018 [facility] CHEM PANEL Glucose Lvl 115 70 - 99 08/23/2018 [facility] CHEM PANEL AGAP 9.1 10.0 - 20.0 08/23/2018 [facility] HEMATOLOGY Hct 35.0 42.0 - 54.0 08/23/2018 [facility] HEMATOLOGY Hgb 11.4 14.0 - 18.0 08/23/2018 [facility] ELECTROLYTES AGAP 11.3 10.0 - 20.0 08/22/2018 [facility] ELECTROLYTES Calcium Lvl 8.6 8.5 - 10.5 08/22/2018 [facility] ELECTROLYTES eGFR 97 08/22/2018 Result Comment: The [...] should be multiplied by the estimated BMI. [facility] ELECTROLYTES Glucose Lvl 159 70 - 99 08/22/2018 [facility] ELECTROLYTES BUN 8 7 - 22 08/22/2018 [facility] ELECTROLYTES Sodium Lvl 141 135 - 145 08/22/2018 [facility] ELECTROLYTES Potassium Lvl 4.3 3.5 - 5.1 08/22/2018 [facility] ELECTROLYTES Chloride Lvl 105 95 - 109 08/22/2018 [facility] ELECTROLYTES Creatinine Lvl 0.6 8 0.50 - 1.40 08/22/2018 [facility] ELECTROLYTES CO2 29 24 - 32 08/22/2018 [facility] HEMATOLOGY Hct 35.9 42.0 - 54.0 08/22/2018 [facility] HEMATOLOGY Hgb 11.7 14.0 - 18.0 08/22/2018 [facility] BLOOD BANK RESULTS ABO/Rh O POS 08/21/2018 [facility] BLOOD BANK RESULTS Antibody Scrn Negative (08/21/18 11:57 AM) 08/21/2018 [facility] CHEM PANEL eGFR 79 08/07/2018 Result Comment: [...] should be multiplied by the estimated BMI. [facility] CHEM PANEL Chloride Lvl 102 95 - 109 08/07/2018 [facility] CHEM PANEL Sodium Lvl 139 135 - 145 08/07/2018 [facility] CHEM PANEL Potassium Lvl 4.4 3.5 - 5.1 08/07/2018 [facility] CHEM PANEL Creatinine Lvl 0.76 0.50 - 1.40 08/07/2018 [facility] CHEM PANEL BUN 12 7 - 22 08/07/2018 [facility] CHEM PANEL Glucose Lvl 162 70 - 99 08/07/2018 [facility] CHEM PANEL Calcium Lvl 8.5 8.5 - 10.5 08/07/2018 [facility] CHEM PANEL CO2 26 24 - 32 08/07/2018 [facility] CHEM PANEL AGAP 15.4 10.0 - 20.0 08/07/2018 [facility] HEMATOLOGY TEG Data See N ote (08/07/18 12:05 PM) 08/07/2018 [facility] HEMATOLOGY G-value 11.9 4.5 - 11.0 08/07/2018 [facility] HEMATOLOGY Max Amp 70.4 50.0 - 70.0 08/07/2018 [facility] HEMATOLOGY R-time 5.3 5.0 - 10.0 08/07/2018 [facility] HEMATOLOGY Coag Index 2.2 -3.0-3.0 - 3.0 08/07/2018 [facility] HEMATOLOGY Ly30 2.0 0.0 - 7.5 08/07/2018 [facility] HEMATOLOGY Angle 70.7 53.0 - 72.0 08/07/2018 [facility] HEMATOLOGY K-time 1.3 1.0 - 3.0 08/07/2018 [facility] HEMATOLOGY Monocytes # 0.8 0.0 - 0.8 08/07/2018 [facility] HEMATOLOGY Basophils # 0.1 0.0 - 0.2 08/07/2018 [facility] HEMATOLOGY Eosinophils # 0.7 0.0 - 0.5 08/07/2018 [facility] HEMATOLOGY Lymphocytes # 1.8 1.0 - 5.5 08/07/2018 [facility] HEMATOLOGY Neutrophils # 6.5 1.5 - 8.1 08/07/2018 [facility] HEMATOLOGY Basophils 0.7 0.0 - 1.0 08/07/2018 [facility] HEMATOLOGY Lymphocytes 18.3 20.0 - 40.0 08/07/2018 [facility] HEMATOLOGY Monocytes 8.4 2.0 - 12.0 08/07/2018 [facility] HEMATOLOGY Eosinophils 7.0 0.0 - 4.0 08/07/2018 [facility] HEMATOLOGY Segs 65.6 45.0 - 75.0 08/07/2018 [facility] HEMATOLOGY MCH 27.3 27.0 - 31.0 08/07/2018 [facility] HEMATOLOGY MPV 10.5 7.4 - 10.4 08/07/2018 [facility] HEMATOLOGY Platelet 167 133 - 450 08/07/2018 [facility] HEMATOLOGY MCV 84.3 80.0 - 94.0 08/07/2018 Result Comment: Reference range changed due to change in patient's sex at 11:11:13. Normal High changed from 98.0 to 94.0. Result flag not changed. [facility] HEMATOLOGY Hct 35.6 42.0 - 54.0 08/07/2018 Result Comment: Reference range changed due to change in patient's sex at 11:11:13. Normal Low changed from 36.0 to 42.0. Normal High changed from 48.0 to 54.0. Result flag not changed. [facility] HEMATOLOGY MCHC 32.4 32.0 - 36.0 08/07/2018 [facility] HEMATOLOGY RDW 15.6 11.5 - 14.5 08/07/2018 [facility] HEMATOLOGY RBC 4.23 4.70 - 6.10 08/07/2018 Result Comment: Reference range changed due to change in patient's sex at 11:11:13. Normal Low changed from 4.20 to 4.70. Normal High changed from 5.40 to 6.10. Result flag changed from within range to L. [facility] HEMATOLOGY Hgb 11.5 14.0 - 18.0 08/07/2018 Result Comment: Reference range changed due to change in patient's sex at 11:11:13. Normal Low changed from 12.0 to 14.0. Normal High changed from 16.0 to 18.0. Result flag not changed. [facility] HEMATOLOGY WBC 10.0 3.7 - 10.4 08/07/2018 [facility] SPECIAL CHEMISTRY Hgb A1C 7.4 <=5.6 % 08/07/2018 [facility] CHEM PANEL eGFR 39 05/02/2018 Result Comment: [...] should be multiplied by the estimated BMI. [facility] CHEM PANEL BUN 20 7 - 22 05/02/2018 [facility] CHEM PANEL AGAP 14.6 10.0 - 20.0 05/02/2018 [facility] CHEM PANEL Calcium Lvl 8.8 8.5 - 10.5 05/02/2018 [facility] CHEM PANEL Potassium Lvl 4.6 3.5 - 5.1 05/02/2018 [facility] CHEM PANEL Sodium Lvl 142 135 - 145 05/02/2018 [facility] CHEM PANEL Creatinine Lvl 1.39 0.50 - 1.40 05/02/2018 [facility] CHEM PANEL CO2 29 24 - 32 05/02/2018 [facility] CHEM PANEL Chloride Lvl 103 95 - 109 05/02/2018 [facility] CHEM PANEL Glucose Lvl 268 70 - 99 05/02/2018 [facility] Pathology Reports No Data Provided for This [...] sternotomy. Interval removal of right chest wall [id number]. Postoperative changes of the lower cervical spine. Impression: 1. No acute cardiopulmonary process. 2. Interval removal of right IJ central venous catheter. Kobe Montoya MD On 12/06/2019 12:57:55; [id number] 12/06/2019 [facility] Internal Auditory Canal w contrast CT Radiation [...] calcifications. Philip Dixon MD On 08/24/2019 18:05:55; [id number] 08/24/2019 [facility] Biopsy abdominal mass VR PROCE RADHAE: CT guided biopsy of mesenteric lymph node INDICATION: - ABD MASS. COMPARISON: PET/CT 05/24/2019 TECHNICAL: . CT imaging performed at this location utilizes radiation dose optimization techniques which include one or more of the following: -Automated exposure control -Adjustment of the mA and/or kV accordin g to patient size -Use of iterative reconstruction technColorModules ue CT Radiation Dose: DLP = 1882 [...] guided biopsy of mesenteric lymph node. 06/08/2019 [facility] Chest 1 v for Placement DX Pat ient Name: ESDRAS WOMACK : 1950. Age: 68 years. Gender: Male. MR: [id number]. Location: [facility] [place] [facility]. Provider: Yocasat Ndiaye MD. EXAM: Chest 1 v for Placement DX, ordered 09/27/2018 3:47 PM LIGHT BULB TESTER PROVIDED CLINICAL HISTORY: Line Placement - Chest [...] above. No appreciable pneumothorax. SL: ELY 09/27/2018 [facility] Chest 1 v for Placement DX EXA [...] central catheter tip at mid SVC. 08/21/2018 [facility] Consultation Notes No Data Provided for This [...] 12/13/2019 [facility] Diastolic (mm Hg) 49 12/13/2019 [facility] Respitory Rate 15 12/13/2019 [facility] Respitory Rate 16 12/13/2019 [facility] Temperature Oral (F) 97.7 F 12/06/2019 [facility] Heart Rate 56 12/06/2019 [facility] Height 182.88 cm 12/06/2019 [facility] Weight 93.21 12/06/2019 [facility] BMI Calculated 27.87 12/06/2019 [facility] Respitory Rate 16 09/17/2019 [facility] Systolic (mm Hg) 99 09/17/2019 [facility] Diastolic (mm Hg) 49 09/17/2019 [facility] Respitory Rate 16 09/17/2019 [facility] Systolic (mm Hg) 110 09/17/2019 [facility] Diastolic (mm Hg) 47 09/17/2019 [facility] Respitory Rate 16 09/17/2019 [facility] Systolic (mm Hg) 116 09/17/2019 [facility] Diastolic (mm Hg) 55 09/17/2019 [facility] Temperature Oral (F) 97.8 F 09/12/2019 [facility] Heart Rate 64 09/12/2019 [facility] Height 182.88 cm 09/12/2019 [facility] Weight 93.182 09/12/2019 [facility] BMI Calculated 27.86 09/12/2019 [facility] Respitory Rate 15 07/11/2019 [facility] Systolic (mm Hg) 147 07/11/2019 [facility] Diastolic (mm Hg) 80 07/11/2019 [facility] Respitory Rate 14 07/11/2019 [facility] Systolic (mm Hg) 137 07/11/2019 [facility] Diastolic (mm Hg) 65 07/11/2019 [facility] Respitory Rate 16 07/11/2019 [facility] Systolic (mm Hg) 105 07/11/2019 [facility] Diastolic (mm Hg) 46 07/11/2019 [facility] Temperature Oral (F) 97.9 F 07/03/2019 [facility] Heart Rate 68 07/03/2019 [facility] Height 182.88 cm 07/03/2019 [facility] Weight 90.909 07/03/2019 [facility] BMI Calculated 27.18 07/03/2019 [facility] BMI Calculated 27.59 06/08/2019 [facility] Weight 92.273 06/08/2019 [facility] Height 182.88 cm 06/08/2019 [facility] Systolic (mm Hg) 161 10/11/2018 [facility] Diastolic (mm Hg) 67 10/11/2018 [facility] Respitory Rate 35 10/11/2018 [facility] Systolic (mm Hg) 147 10/11/2018 [facility] Diastolic (mm Hg) 65 10/11/2018 [facility] Respitory Rate 20 10/11/2018 [facility] Respitory Rate 27 10/11/2018 [facility] Temperature Oral (F) 97.2 F 10/11/2018 [facility] Systolic (mm Hg) 133 10/11/2018 [facility] Diastolic (mm Hg) 63 10/11/2018 [facility] Temperature Oral (F) 97 F 10/11/2018 [facility] BMI Calculated 28.27 10/10/2018 [facility] Weight 94.545 10/10/2018 [facility] Height 182.88 cm 10/10/2018 [facility] Respitory Rate 12 09/27/2018 [facility] Systolic (mm Hg) 143 09/27/2018 [facility] Diastolic (mm Hg) 59 09/27/2018 [facility] Respitory Rate 11 09/27/2018 [facility] Systolic (mm Hg) 148 09/27/2018 [facility] Diastolic (mm Hg) 65 09/27/2018 [facility] Systolic (mm Hg) 144 09/27/2018 [facility] Diastolic (mm Hg) 58 09/27/2018 [facility] Respitory Rate 16 09/27/2018 [facility] Weight 98.778 09/25/2018 [facility] BMI Calculated 29.53 09/25/2018 [facility] Height 182.88 cm 09/25/2018 [facility] Temperature Oral (F) 97.6 F 09/25/2018 [facility] Heart Rate 68 09/25/2018 [facility] Respitory Rate 18 08/24/2018 [facility] Heart Rate 58 08/24/2018 [facility] Temperature Oral (F) 98.5 F 08/24/2018 [facility] Systolic (mm Hg) 157 08/24/2018 [facility] Diastolic (mm Hg) 61 08/24/2018 [facility] Heart Rate 75 08/24/2018 [facility] Respitory Rate 18 08/24/2018 [facility] Systolic (mm Hg) 153 08/24/2018 [facility] Diastolic (mm Hg) 65 08/24/2018 [facility] Temperature Oral (F) 98.0 F 08/24/2018 [facility] Respitory Rate 18 08/24/2018 [facility] Heart Rate 57 08/24/2018 [facility] Temperature Oral (F) 97.7 F 08/24/2018 [facility] Systolic (mm Hg) 160 08/24/2018 [facility] Diastolic (mm Hg) 66 08/24/2018 [facility] Height 182.8 cm 08/22/2018 [facility] Weight 99.3 08/22/2018 [facility] BMI Calculated 29.72 08/22/2018 [facility] BMI Calculated 29.76 08/21/2018 [facility] Weight 99.545 08/21/2018 [facility] Height 182.88 cm 08/21/2018 [facility] BMI Calculated 30.2 08/07/2018 [facility] Weight 101.004 08/07/2018 [facility] Height 182.88 cm 08/07/2018 [facility] Systolic (mm Hg) 113 05/08/2018 [facility] Diastolic (mm Hg) 52 05/08/2018 [facility] Respitory Rate 14 05/08/2018 [facility] Respitory Rate 17 05/08/2018 [facility] Systolic (mm Hg) 101 05/08/2018 [facility] Diastolic (mm Hg) 48 05/08/2018 [facility] Systolic (mm Hg) 85 05/08/2018 [facility] Diastolic (mm Hg) 53 05/08/2018 [facility] Respitory Rate 15 05/08/2018 [facility] BMI Calculated 29.66 05/02/2018 [facility] Weight 99.205 05/02/2018 [facility] Height 182.88 cm 05/02/2018 [facility] Heart Rate 72 05/02/2018 [facility] Temperature Oral (F) 98.1 F 05/02/2018 [facility] Encounters Location Location Details Encounter Type Encounter Number Reason For Visit Attending Provider ADM Date DC Date Status [facility] [id number] Yocasta Ndiaye 05/08/2018 05/08/[address] [facility] Bedded Outpatient [id number] sIh Cortes 07/05/2018 07/05/2018 [facility] Inpatient [id number] Yocasta Ndiaye 08/21/2018 08/25/2018 [facility] [id number] Yocasta Ndiaye 09/27/2018 09/27/2018 [facility] Inpatient [id number] Nicho Saldivar 10/11/2018 10/11/2018 [facility] Outpatient [id number] Sarah Villela 06/08/2019 06/09/[address] [facility] Bedded Outpatient [id number] Yocasta Ndiaye 07/11/2019 07/11/[address] [facility] Outpatient [id number] Mikel Souleymane 08/24/2019 08/25/[address] [facility] Day Surgery [id number] Yocasta Ndiaye 09/17/2019 09/17/[address] [facility] Day Surgery [id number] Ish Cortes 12/13/2019 12/13/2019 [facility] Procedures Procedure Code Date Perfomer Comments Source Vascular access incision<sup>1</sup> [id number] 10/31/2017 portocath placement [facility] Endarterectomy [id number] 10/31/2007 [facility] CABG x 4 - Coronary artery bypass grafts x 4 [id number] 10/31/2001 [facility] Cataract surgery [id number] [facility] Cervical spinal fusion [id number] [facility] Colonoscopy [id number] [facility] Lumbar spinal fusion [id number] [facility] Operation [id number] [facility] Partial resection of colon [id number] [facility] Shoulder joint operations [id number] [facility] Vasectomy [id number] [facility] Assessment and Plan Assessment and Plan Date [...] on-going), BPH (Tamsulosin 0.4mg) who presented to [facility] for scheduled PCI after the positive PET CT in April (LCX ischemia). Patient received DESx2 to the LCX, DESx1 to prox LAD, DESx1 RPDA. Patient's laborer rags is Dr. Saldivar. Patient was loaded with Ticagrelor 180mg during procedure. 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 Per procedure recommendations, patient will stop his home Plavix, and be discharged on Ticagrelor 90mg BID and continue his Aspirin 81mg. CV #CAD s/p CABG, PCI #Elective PCI - MEGGAN to LCX, prox LAD, RPDA - Ticagrelor 180mg in procedure, startin g DAPT tomorrow - Has laborer rags, Dr. Saldivar to fo llow-up with #HTN [...] renal disease Diet Heart Healthy-- 10/10/18 10:16:00 LIGHT BULB TESTER Code: Full Aiden Fletcher MD [facility] Internal Medicine PGY1 CCU/CIMU Daily Patient [...] s/p CPR Cardiogenic Shock Acute ST Elevation FL Anterior LAD Lateral LCx Inferior RCA Non ST Elevation FL Anterior LAD Lateral LCx Inferior RCA Unstable [...] by Ankit Aguilar MD on 10/13/2018 14:39 LIGHT BULB TESTER ATTENDING ADDENDUM I have seen and examined the patient. Furthermore, I have reviewed the resident's/fellow's note dated today, and I agree with the assessment and plan. I have personally reviewed the laboratory results, radiology results, and tracings. Dr. Ankit Aguilar MD #[id number] 10/11/2018 [facility] Extracted from:Title: Progress Note Author: Jaylan Albert [...] Was recently started on imdur by outside laborer rags. -on lisinopril 10, carvedilol 12.5q12, a mlodipine 5 and Imdur 30 in the hospital Recommendations -continue aspirin 81mg daily -continue clopidogrel 75mg daily -recommend increasing dose of lisinopril from 10mg to 20mg daily -Continue Amlodipine 5 mg daily -Discontinue Imdur Switch from Rosuvastatin to Atorvastatin 40mg daily for CAD (High intensity statin) Case discussed with Dr. Odin Benitez MD Internal Medicine [facility] Addendum by Kishore Newby MD on 08/23/2018 [...] rosuva to atorva (Crestor to Lipitor) 08/25/2018 [facility] Plan of Care No Data Provided for [...] No2 entered on: 12/06/19 1quit drinking in [id number] smoking 15 years ago 12/06/2019 [facility] Social History TypeResponse Smoking Status Former smoker; Type: Cigarettes; Exposure to Tobacco Smoke None; Cigarette Smoking Last 365 Days No; Reg Smoking Cessation Counseling No1 entered on: 10/10/18 1Quit smoking 15 years ago 08/2018 [facility] Family History No Data Provided for This Section Advance Directives No Data Provided for This Section Functional Status No Data Provided for This Section
--- NOTE | 2020-03-11 19:30 | NUR ---
1929 sheath pull completed downtime till 12 midnight . Rt groin site with no gross issues pain pallor pressure or dysrhythmia. Remain sinus sumaya no active CP or SOB. phone report given to Devaughn VIEIRA and phoned tele room report. Transported by Christopher VIEIRA and Derick VIEIRA for potential dc in am Pre dc papers done. ashley/pamela
--- NOTE | 2020-03-11 20:30 | NUR ---
69 year old male received from cath labs/p stent placement via stretcher. Rt groin dressing dry and intact. Pt is alert and oriented x3. Cooperative with care. Pt to lay flat until 12mn.pt need reminding but verbalized understanding of instructions.Hx COPD,DM. Pt not to restart Metformin until 03/13/20.Respirations are even and unlabored. vs stable. Tele on. B/ HR 66 R 18 Resp 18.Hx HTN noted.piv 20 g left wrist. ns infusing at 100 ml/hr on pump.pedal pulses palpable bilaterally. Pt eating fried chicken from daughter.Pt tolerating po well. Pt voiding without difficulty via urinal. Call light within reach. bed locked and on low position. bed alarm on.
[2020-03-11] MEDS ORDERED: CRESTOR 10MG PO SCH (21:00)
[2020-03-11] MEDS ORDERED: TAMSULOSIN HCL 0.4 MG CAP PO SCH (21:00)
[2020-03-11] MEDS: LISINOPRIL 20 MG TAB PO SCH (23:48)
[2020-03-11] MEDS: CARVEDILOL 12.5 MG TAB PO SCH (23:48)
[2020-03-12] MEDS: SODIUM CHLORIDE 0.9% 1000ML 1,000 ML IV SCH ×2 (01:23→06:00)
[2020-03-12 04:00] VITALS: BP 123/58
--- NOTE | 2020-03-12 04:30 | NUR ---
B/P 123/58 HR 64. PT SLEEPING. PT DENIES PAIN.
[2020-03-12] MEDS ORDERED: BUDESONIDE/FORMOTEROL 160/4.5MCG INHALER INH SCH (06:00)
[2020-03-12 06:21] LABS: BASOPHILS % 0.3 % (0.0-1.0); EOSINOPHILS # (AUTO) 0.2 (0.0-0.4); EOSINOPHILS % 2.3 % (0.0-6.0); HEMATOCRIT 35.8 % (38.2-49.6); HEMOGLOBIN 11.5 g/dL (14.0-18.0); LYMPHOCYTES # (AUTO) 1.5 (1.0-3.2); LYMPHOCYTES % 21.2 % (18.0-39.1); MEAN CORPUSCULAR HGB CONC 32.1 g/dL (31-35); MEAN CORPUSCULAR VOLUME 87.1 fL (81-99); MONOCYTES # (AUTO) 0.6 (0.2-0.8); MONOCYTES % 8.3 % (4.4-11.3); NEUTROPHILS # (AUTO) 4.8 (2.1-6.9); NEUTROPHILS % 67.5 % (38.7-80.0); PLATELET COUNT 110 x10e3/uL (140-360); RED BLOOD COUNT 4.11 x10e6/uL (4.3-5.7); RED CELL DISTRIBUTION WIDTH 14.4 % (11.7-14.4)
--- NOTE | 2020-03-12 06:24 | NUR ---
b/p 0000 180/60. meds given as ordered. Will monitor b/p closely after coreg and lisinopril given. Rt groin dressing dry and intact. Pedal pulses palapble. Pt denies pain.
[2020-03-12 06:41] LABS: ANION GAP 10.9 mmol/L (8-16); BLOOD UREA NITROGEN 11 mg/dL (7-26); BUN/CREATININE RATIO 15 (6-25); CALCIUM 7.9 mg/dL (8.4-10.2); CARBON DIOXIDE 29 mmol/L (22-29); CHLORIDE 106 mmol/L (98-107); CREATININE, SERUM 0.74 mg/dL (0.72-1.25); EST GLOMERULAR FILTRATION RATE > 60 ML/MIN (60-); GLUCOSE 138 mg/dL (74-118); POTASSIUM 3.9 mmol/L (3.5-5.1); SODIUM 142 mmol/L (136-145)
[2020-03-12] MEDS ORDERED: GLIPIZIDE 5 MG TAB PO SCH (07:30)
[2020-03-12] MEDS ORDERED: PANTOPRAZOLE SOD 40 MG TABEC PO SCH (07:30)
[2020-03-12 07:38] VITALS: BP 154/51
[2020-03-12 08:36] VITALS: BP 154/51
[2020-03-12] MEDS ORDERED: CLOPIDOGREL BISULFATE 75 MG TAB PO SCH (09:00)
[2020-03-12] MEDS ORDERED: CILOSTAZOL 100 MG TAB PO SCH (09:00)
[2020-03-12] MEDS ORDERED: ASPIRIN 81 MG CHEW TAB PO SCH (09:00)
[2020-03-12] MEDS ORDERED: SITAGLIPTIN 100 MG TAB PO SCH (09:00)
--- NOTE | 2020-03-12 10:15 | NUR ---
Pt. expressed no spiritual or emotional concerns. Gauge And Instrument Inspector provided hospitality and information on how to reach film processing utility worker, if needed. No needs to follow at this time. PRISCA MERCEDES Gauge And Instrument Inspector Spiritual Care Department O: [phone]
[2020-03-12] MEDS: CARVEDILOL 12.5 MG TAB PO SCH (10:39)
[2020-03-12] MEDS: LISINOPRIL 20 MG TAB PO SCH (10:41)
[2020-03-12 12:00] VITALS: BP 154/56
[2020-03-13] MEDS ORDERED: METFORMIN HCL 500 MG TAB PO SCH (17:00)
== END 2020-03-12 14:16 | disposition home or self-care (01) ==
LOC: CATH LAB 12:57 → MED/SURG 16:05
PROVIDERS: ADMIT Internal Medicine Interventional Cardiology; ATTEND Internal Medicine Interventional Cardiology
DX: I25.700 Atherosclerosis of coronary artery bypass graft(s), unspecified, with unstable angina pectoris (principal); I70.213 Atherosclerosis of native arteries of extremities with intermittent claudication, bilateral legs; Z03.818 Encounter for observation for suspected exposure to other biological agents ruled out; Z95.1 Presence of aortocoronary bypass graft
CPT/HCPCS: 75625; 93455; C9600; 36415; 80048; 80053; 82948; 85025; 87635; 92928; 94664; 99152; 99153; C1725; C1769; C1874; C1887; G0378; J0583; J1644; J2001; J2250; J3010; J7030; Q9967